=== PATIENT | female | born 1945 | race Caucasian/White ===

== ENCOUNTER 2020-07-05 08:26 | Outpatient (REF) | payer MEDICARE, SELFPAY ==
[2020-07-05 11:51] LABS: Alanine Aminotransferase 13 U/L (0-31); Anion Gap 13 (12-20); Aspartate Amino Transferase 14 U/L (5-31); Blood Urea Nitrogen 16 mg/dL (9-16); Calcium 9.3 mg/dL (8.4-10.2); Carbon Dioxide 28 mmol/L (22-29); Chloride 105 mmol/L (96-108); Cholesterol 223 mg/dL; Estimated Glomerular Filt Rate 59; Glucose Fasting 75 mg/dL (60-99); HDL Cholesterol 68 mg/dL; LDL Cholesterol Calculated 137 mg/dl; Potassium 4.5 mmol/l (3.3-5.1); Sodium 141 mmol/L (135-145); Triglycerides 90 mg/dL
[2020-07-05 11:58] LABS: Vitamin D 25-OH Total 38.6 ng/mL (>30)
== END 2020-07-05 08:27 | disposition home or self-care (01) ==
LOC: HO.HMGCLDS 08:26
PROVIDERS: PCP Internal Medicine; Visit Provider Internal Medicine
DX: E03.9 Hypothyroidism, unspecified (principal); E78.5 Hyperlipidemia, unspecified; F33.42 Major depressive disorder, recurrent, in full remission; M89.49 Other hypertrophic osteoarthropathy, multiple sites; M85.80 Other specified disorders of bone density and structure, unspecified site
CPT/HCPCS: 80048; 80061; 82306; 84439; 84443; 84450; 84460

== ENCOUNTER 2020-12-15 11:42 | Outpatient (REF) | payer MEDICARE, SELFPAY ==
--- NOTE | ~2020-12-15 | MM_ITS ---
EXAMINATION: MM SCREENING DIGITAL BREAST TOMOSYNTHESIS, BILATERAL CLINICAL INFORMATION: Screening. Asymptomatic. The lifetime risk of breast cancer based on the Tyrer-Cuzick Model is 2.3%. COMPARISON: Mammography: August 06, 2019 and studies dating back to November 30, 2011 TECHNIQUE: Digital breast tomosynthesis is performed in both the craniocaudal and mediolateral oblique views along with computer-aided detection (CAD). Synthesized 2D images are generated from the tomosynthesis. FINDINGS: The breasts are heterogeneously dense, which may obscure small masses (ACR BI-RADS breast composition Category c). There are no significant masses, abnormal calcifications, or other abnormalities. MM/MM tomosynthesis screening BI IMPRESSION: There are no significant changes from prior study. ASSESSMENT: BI-RADS 1: Negative RECOMMENDATION: Routine annual mammography screening. This patient's information was entered into a reminder system with a target due date for their next mammogram.
== END 2020-12-15 11:43 | disposition home or self-care (01) ==
LOC: HO.MAMMO 11:42
PROVIDERS: PCP Internal Medicine; Visit Provider Internal Medicine
DX: Z12.31 Encounter for screening mammogram for malignant neoplasm of breast (principal)
CPT/HCPCS: 77063; 77067

== ENCOUNTER 2021-04-01 09:05 | Outpatient (REF) | payer MEDICARE, SELFPAY ==
[2021-04-01 11:44] LABS: Alanine Aminotransferase 11 U/L (0-31); Anion Gap 10 (12-20); Aspartate Amino Transferase 16 U/L (5-31); Blood Urea Nitrogen 21 mg/dL (9-16); Calcium 9.3 mg/dL (8.4-10.2); Carbon Dioxide 28 mmol/L (22-29); Chloride 105 mmol/L (96-108); Cholesterol 210 mg/dL; Estimated Glomerular Filt Rate 59; Glucose Fasting 86 mg/dL (60-99); HDL Cholesterol 64 mg/dL; LDL Cholesterol Calculated 130 mg/dl; Potassium 4.3 mmol/L (3.3-5.1); Sodium 139 mmol/L (135-145); Triglycerides 84 mg/dL
== END 2021-04-01 09:06 | disposition home or self-care (01) ==
LOC: HO.HMGCLDS 09:05
PROVIDERS: PCP Internal Medicine; Visit Provider Internal Medicine
DX: M19.91 Primary osteoarthritis, unspecified site (principal); E03.9 Hypothyroidism, unspecified; M85.852 Other specified disorders of bone density and structure, left thigh; E78.5 Hyperlipidemia, unspecified; F32.9 Major depressive disorder, single episode, unspecified; I10 Essential (primary) hypertension
CPT/HCPCS: 36415; 80048; 80061; 82306; 84450; 84460

== ENCOUNTER 2021-04-20 14:20 | Outpatient (REF) | payer MEDICARE, SELFPAY ==
--- NOTE | ~2021-04-20 | MM_ITS ---
EXAMINATION: BONE DENSITOMETRY CLINICAL INDICATION: Encounter for screening for osteoporosis. COMPARISON: Previous BD dated 01/14/2019 and baseline BD dated 01/05/2015. TECHNIQUE: Using a Young[employer] DXA System (software version: 13.1) manufactured by [employer], dual-energy x-ray absorptiometry was performed of the lumbar spine and left hip. The images are of good technical quality. Summary results are attached. FINDINGS: AP SPINE L1-L2 (excluding L3 and L4): The data of L1-L4 has been changed to exclude the L3 and L4 vertebral bodies, because degenerative sclerosis at these levels may cause overestimation of lumbar spine density. Current: BMD 0.904 g/cm2, Z-score -0.7, T-score -2.2, osteopenia, 6.9% decrease from previous, 6.5% decrease from baseline (<5% change is not significant). Prior: BMD 0.971 g/cm2. Baseline: BMD 0.967 g/cm2. LEFT FEMUR, NECK: Current: BMD 0.717 g/cm2, Z-score -0.5, T-score -2.3, osteopenia. Prior: BMD 0.760 g/cm2. Baseline: BMD 0.788 g/cm2. LEFT FEMUR, TOTAL: Current: BMD 0.816 g/cm2, Z-score 0.1, T-score -1.5, osteopenia, 0.2% increase from previous, 2.0% decrease from baseline (<5% change is not significant). Prior: BMD 0.814 g/cm2. Baseline: BMD 0.833 g/cm2. IDENTIFIED RISK FACTORS: Osteopenia, height loss, menopause. HISTORY OF FRACTURE: None listed. MEDICATIONS: Calcium supplements or multivitamin, vitamin D, ERT/SERMS. MM/XR DEXA axial skeleton IMPRESSION: 1. DIAGNOSIS: Osteopenia based on the lowest T-score value of -2.3 in the femoral neck applying World Health Organization criteria. 2. 10-YEAR FRACTURE RISK PREDICTION, FRAX: Major osteoporotic fracture (clinical spine, forearm, hip or shoulder) 16.1%. Hip fracture 4.9%. 3. Treatment Recommendations: NOF guidelines recommend consideration for treatment in postmenopausal women and men age 50 and older presenting with the following: -A hip or vertebral (clinical or morphometric) fracture. -T-score less than or equal to -2.5 at the femoral neck or spine after appropriate evaluation to exclude secondary causes. -Low bone mass at the hip or spine and a 10-year fracture probability by FRAX of greater than or equal to 3% for hip fracture or greater than or equal to 20% for major osteoporotic fracture based on the [place] adapted WHO algorithm. 4. Other Recommendations: All treatment decisions require clinical judgment and consideration of individual patient factors, including patient preferences, comorbidities, previous drug use, risk factors not captured in the FRAX model (e.g. frailty, falls, vitamin D deficiency, increased bone turnover, interval significant decline in bone density) and possible under or overestimation of fracture risk by FRAX. Additional medical evaluation for secondary cause of low bone mineral density may be appropriate. FUTURE SCAN RECOMMENDATION: People with diagnosed cases of osteoporosis or at high risk for fracture should have regular bone mineral density tests. For patients eligible for Medicare, routine testing is allowed once every 2 years. The testing frequency can be increased to one year for patients who have rapidly progressing disease, those who are receiving or discontinuing medical therapy to restore bone mass, or have additional risk factors.
== END 2021-04-20 14:21 | disposition home or self-care (01) ==
LOC: HO.MAMMO 14:20
PROVIDERS: PCP Internal Medicine; Visit Provider Internal Medicine Rheumatology
DX: Z13.820 Encounter for screening for osteoporosis (principal); M85.80 Other specified disorders of bone density and structure, unspecified site; Z78.0 Asymptomatic menopausal state; Z79.899 Other long term (current) drug therapy
CPT/HCPCS: 77080

== ENCOUNTER → 2021-09-13 07:34 | Outpatient (BNVA) | payer MEDICARE, SELFPAY | PROVIDERS: PCP Internal Medicine; Referring Provider Internal Medicine; Visit Provider Nurse Practitioner | DX: K59.00 Constipation, unspecified (principal) | CPT/HCPCS: 99202 ==

== ENCOUNTER 2021-09-30 09:56 | Outpatient (REF) | payer MEDICARE, SELFPAY ==
[2021-09-30 12:10] LABS: Alanine Aminotransferase 16 U/L (0-31); Anion Gap 8 (12-20); Aspartate Amino Transferase 19 U/L (5-31); Blood Urea Nitrogen 18 mg/dL (9-16); Calcium 9.3 mg/dL (8.4-10.2); Carbon Dioxide 30 mmol/L (22-29); Chloride 105 mmol/L (96-108); Cholesterol 221 mg/dL; Estimated Glomerular Filt Rate > 60; Glucose Fasting 87 mg/dL (60-99); HDL Cholesterol 67 mg/dL; LDL Cholesterol Calculated 140 mg/dl; Sodium 139 mmol/L (135-145); Triglycerides 73 mg/dL
[2021-09-30 12:11] LABS: Free T4 (Free Thyroxine) 1.12 ng/dL (0.71-1.85); Thyroid Stimulating Hormone 1.38 uIU/mL (0.32-4.0); Vitamin D 25-OH Total 34.6 ng/mL (>30)
== END 2021-09-30 09:57 | disposition home or self-care (01) ==
LOC: HO.HMGCLDS 09:56
PROVIDERS: Visit Provider Internal Medicine
DX: I10 Essential (primary) hypertension (principal); E03.9 Hypothyroidism, unspecified; K59.00 Constipation, unspecified; E78.5 Hyperlipidemia, unspecified; M85.852 Other specified disorders of bone density and structure, left thigh; Z78.0 Asymptomatic menopausal state
CPT/HCPCS: 36415; 80048; 80061; 82306; 84439; 84443; 84450; 84460

== ENCOUNTER → 2021-12-15 13:22 | Outpatient (BNVA) | payer MEDICARE, SELFPAY | PROVIDERS: PCP Internal Medicine; Referring Provider Internal Medicine; Visit Provider Nurse Practitioner | DX: K58.1 Irritable bowel syndrome with constipation (principal) | CPT/HCPCS: 99212 ==

== ENCOUNTER 2022-01-05 14:07 | Outpatient (REF) | payer MEDICARE, SELFPAY ==
--- NOTE | ~2022-01-05 | MM_ITS ---
EXAMINATION: MM SCREENING DIGITAL BREAST TOMOSYNTHESIS, BILATERAL CLINICAL INFORMATION: Screening. Asymptomatic. The lifetime risk of breast cancer based on the Tyrer-Cuzick Model is 4%. COMPARISON: Mammography: December 15, 2020 and studies dating back to November 30, 2011 TECHNIQUE: Digital breast tomosynthesis is performed in both the craniocaudal and mediolateral oblique views along with computer-aided detection (CAD). Synthesized 2D images are generated from the tomosynthesis. FINDINGS: The breasts are heterogeneously dense, which may obscure small masses (ACR BI-RADS breast composition Category c). There are no significant masses, abnormal calcifications, or other abnormalities. MM/MM tomosynthesis screening BI IMPRESSION: There are no significant changes from prior study. ASSESSMENT: BI-RADS 1: Negative RECOMMENDATION: Routine annual mammography screening. This patient's information was entered into a reminder system with a target due date for their next mammogram.
== END 2022-01-05 14:08 | disposition home or self-care (01) ==
LOC: HO.MAMMO 14:07
PROVIDERS: Visit Provider Internal Medicine
DX: Z12.31 Encounter for screening mammogram for malignant neoplasm of breast (principal)
CPT/HCPCS: 77063; 77067

== ENCOUNTER 2022-01-18 07:53 | Outpatient (REF) | payer MEDICARE, SELFPAY ==
[2022-01-18 11:58] LABS: Alanine Aminotransferase 18 U/L (0-31); Aspartate Amino Transferase 16 U/L (5-31); Cholesterol 222 mg/dL; HDL Cholesterol 66 mg/dL; LDL Cholesterol Calculated 145 mg/dl; Triglycerides 59 mg/dL
[2022-01-18 12:06] LABS: Free T4 (Free Thyroxine) 1.03 ng/dL (0.71-1.85); Thyroid Stimulating Hormone 1.79 uIU/mL (0.32-4.0); Vitamin D 25-OH Total 33.1 ng/mL (>30)
== END 2022-01-18 07:54 | disposition home or self-care (01) ==
LOC: HO.HMGCLDS 07:53
PROVIDERS: Visit Provider Internal Medicine
DX: E03.9 Hypothyroidism, unspecified (principal); E78.5 Hyperlipidemia, unspecified; F32.9 Major depressive disorder, single episode, unspecified; K58.1 Irritable bowel syndrome with constipation; M85.852 Other specified disorders of bone density and structure, left thigh; Z78.0 Asymptomatic menopausal state
CPT/HCPCS: 36415; 80061; 82306; 84439; 84443; 84450; 84460

== ENCOUNTER → 2022-06-13 14:07 | Outpatient (BNVA) | payer MEDICARE, SELFPAY | PROVIDERS: PCP Internal Medicine; Visit Provider Nurse Practitioner | DX: K58.1 Irritable bowel syndrome with constipation (principal); Z98.890 Other specified postprocedural states | CPT/HCPCS: 99212 ==

== ENCOUNTER 2022-07-20 08:23 | Outpatient (REF) | payer MEDICARE, SELFPAY ==
[2022-07-20 11:58] LABS: Alanine Aminotransferase 13 U/L (0-31); Aspartate Amino Transferase 16 U/L (5-31); Cholesterol 229 mg/dL; Free T4 (Free Thyroxine) 1.03 ng/dL (0.71-1.85); HDL Cholesterol 68 mg/dL; LDL Cholesterol Calculated 148 mg/dl; Thyroid Stimulating Hormone 1.64 uIU/mL (0.32-4.0); Triglycerides 68 mg/dL; Vitamin D 25-OH Total 33.5 ng/mL (>30)
== END 2022-07-20 08:24 | disposition home or self-care (01) ==
LOC: HO.HMGCLDS 08:23
PROVIDERS: PCP Internal Medicine; Visit Provider Internal Medicine
DX: E03.9 Hypothyroidism, unspecified (principal); E78.5 Hyperlipidemia, unspecified; F32.9 Major depressive disorder, single episode, unspecified; M19.91 Primary osteoarthritis, unspecified site; M85.852 Other specified disorders of bone density and structure, left thigh; Z78.0 Asymptomatic menopausal state
CPT/HCPCS: 36415; 80061; 82306; 84439; 84443; 84450; 84460

== ENCOUNTER → 2022-10-20 11:11 | Outpatient (BNVA) | payer MEDICARE, SELFPAY | PROVIDERS: PCP Internal Medicine; Visit Provider Student in an Organized Health Care Education/Training Program | DX: M19.041 Primary osteoarthritis, right hand (principal); M19.042 Primary osteoarthritis, left hand; M85.852 Other specified disorders of bone density and structure, left thigh | CPT/HCPCS: 99202 ==

== ENCOUNTER 2022-10-31 11:57 | Outpatient (REF) | payer MEDICARE, SELFPAY ==
--- NOTE | ~2022-10-31 | US_ITS ---
EXAMINATION: US SCREENING ULTRASOUND BREAST, BILATERAL CLINICAL INFORMATION: Dense breasts on mammography. Screening ultrasound. Tyrer-Cuzick Score 17%. COMPARISON: Mammography 01/05/2022, bilateral breast MR 07/05/2016. TECHNIQUE: Ultrasound is performed using grayscale imaging and color Doppler. Imaging is performed to include the four quadrants and retroareolar region. Both breasts are imaged. FINDINGS: Right breast: There is no suspicious finding by ultrasound. There is no cystic or solid mass or focal architectural abnormality. Left breast: There is no suspicious finding by ultrasound. There is no cystic or solid mass or focal architectural abnormality. US/US breast LT complete IMPRESSION: No suspicious findings on screening breast ultrasound. ASSESSMENT: BI-RADS 1: Negative RECOMMENDATION: Routine annual mammography screening. This patient's information was entered into a reminder system with a target due date for their next mammogram.
--- NOTE | ~2022-10-31 | US_ITS ---
EXAMINATION: US SCREENING ULTRASOUND BREAST, BILATERAL CLINICAL INFORMATION: Dense breasts on mammography. Screening ultrasound. Tyrer-Cuzick Score 17%. COMPARISON: Mammography 01/05/2022, bilateral breast MR 07/05/2016. TECHNIQUE: Ultrasound is performed using grayscale imaging and color Doppler. Imaging is performed to include the four quadrants and retroareolar region. Both breasts are imaged. FINDINGS: Right breast: There is no suspicious finding by ultrasound. There is no cystic or solid mass or focal architectural abnormality. Left breast: There is no suspicious finding by ultrasound. There is no cystic or solid mass or focal architectural abnormality. US/US breast RT complete IMPRESSION: No suspicious findings on screening breast ultrasound. ASSESSMENT: BI-RADS 1: Negative RECOMMENDATION: Routine annual mammography screening. This patient's information was entered into a reminder system with a target due date for their next mammogram.
== END 2022-10-31 11:58 | disposition home or self-care (01) ==
LOC: HO.MAMMO 11:57
PROVIDERS: PCP Internal Medicine; Visit Provider Internal Medicine
DX: R92.2 Inconclusive mammogram (principal); Z80.3 Family history of malignant neoplasm of breast
CPT/HCPCS: 76641

== ENCOUNTER → 2022-12-12 13:42 | Outpatient (BNVA) | payer MEDICARE, SELFPAY | PROVIDERS: PCP Internal Medicine; Visit Provider Nurse Practitioner | DX: Z01.818 Encounter for other preprocedural examination (principal); K58.1 Irritable bowel syndrome with constipation; D12.6 Benign neoplasm of colon, unspecified; Z80.0 Family history of malignant neoplasm of digestive organs | CPT/HCPCS: 99212 ==

== ENCOUNTER 2023-01-12 08:15 | Outpatient (REF) | payer MEDICARE, SELFPAY ==
[2023-01-12 12:20] LABS: Alanine Aminotransferase 22 U/L (0-31); Aspartate Amino Transferase 22 U/L (5-31); Cholesterol 226 mg/dL; HDL Cholesterol 76 mg/dL; LDL Cholesterol Calculated 136 mg/dl; Triglycerides 73 mg/dL
[2023-01-12 12:40] LABS: Free T4 (Free Thyroxine) 0.93 ng/dL (0.71-1.85); Thyroid Stimulating Hormone 1.32 uIU/mL (0.32-4.0); Vitamin D 25-OH Total 54.5 ng/mL (>30)
== END 2023-01-12 08:16 | disposition home or self-care (01) ==
LOC: HO.HMGCLDS 08:15
PROVIDERS: PCP Internal Medicine; Visit Provider Internal Medicine
DX: E03.9 Hypothyroidism, unspecified (principal); E78.5 Hyperlipidemia, unspecified; M85.852 Other specified disorders of bone density and structure, left thigh; F32.9 Major depressive disorder, single episode, unspecified
CPT/HCPCS: 36415; 80061; 82306; 84439; 84443; 84450; 84460

== ENCOUNTER 2023-02-09 12:35 | Outpatient (REF) | payer MEDICARE, SELFPAY ==
--- NOTE | ~2023-02-09 | MM_ITS ---
EXAMINATION: MM SCREENING DIGITAL BREAST TOMOSYNTHESIS, BILATERAL CLINICAL INFORMATION: Screening. Asymptomatic. The lifetime risk of breast cancer based on the Tyrer-Cuzick Model is 3%. COMPARISON: Mammography: This study is compared with prior exams dating back to 2019. TECHNIQUE: Digital breast tomosynthesis is performed in both the craniocaudal and mediolateral oblique views along with computer-aided detection (CAD). Synthesized 2D images are generated from the tomosynthesis. FINDINGS: There are scattered areas of fibroglandular density (ACR BI-RADS breast composition Category b). There are no significant masses, abnormal calcifications, or other abnormalities. MM/MM tomosynthesis screening BI IMPRESSION: No mammographic evidence of malignancy. ASSESSMENT: BI-RADS BI-RADS 1 - Negative RECOMMENDATION: Routine annual mammography screening. 1 year F/U This examination should not preclude the clinical evaluation of a suspicious palpable abnormality. This patient's information was entered into a reminder system with a target due date for their next mammogram.
== END 2023-02-09 12:36 | disposition home or self-care (01) ==
LOC: HO.MAMMO 12:35
PROVIDERS: PCP Internal Medicine; Visit Provider Internal Medicine
DX: Z12.31 Encounter for screening mammogram for malignant neoplasm of breast (principal)
CPT/HCPCS: 77063; 77067

== ENCOUNTER → 2023-02-09 12:45 | Outpatient (BNV) | payer MEDICARE, SELFPAY | PROVIDERS: PCP Internal Medicine; Visit Provider Radiology Diagnostic Radiology | DX: Z12.31 Encounter for screening mammogram for malignant neoplasm of breast (principal) | CPT/HCPCS: 77063; 77067 ==

== ENCOUNTER 2023-02-26 11:00 | Outpatient (RCR) | payer MEDICARE, SELFPAY ==
--- NOTE | 2023-02-09 08:39 | MHC.PT.EP ---
[facility] [place] Office [place] Office [place] Office [address] Meche Sharp [address] [phone] F: [phone] F: [phone] F: [phone] F: [phone] Physical Therapy Plan of Care Date of Evaluation: Date of Surgery: n/a Diagnosis: pain in B knee Assessment: Patient is a 78 year old female presenting to PT with complaints of pain in her B knees. Pt reports onset of pain began years ago with worsening recently due to insidious onset. She presents today with impairments in pain, knee strength, hip strength. Pt's current occupation is retired, with baseline physical activities including ambulating, ADLs, stair negotiation. 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 Clinical presentation today is most consistent with signs and sx associated with B knee pain and pt will benefit from skilled PT 2 week x 4 weeks to address the following problems and impairments noted upon evaluation: pain, knee strength, hip strength. These problems limit the patient with the following functional activities: ambulating, stair negotiation, ADLS. The prescribed treatment plan of care is medically necessary. Co-morbidities of osteopenia, IBS were identified and taken into considerations of plan of care. Pt was educated on HEP, role of PT, prognosis, POC. Frequency and Duration: The patient will be seen 2 x week x 4 weeks Short Term Goals: Pt will demonstrate improved B knee MMT strength to 5/5 in 2 weeks. Pt will demonstrate improved hip MMT strength by 1/3 grade in 2 weeks for improved lumbopelvic stability. Penitentiary Goals: Pt will demonstrate improved LEFI score by 9 points in 4 weeks for improved functional mobility. Pt will demonstrate reports of improved ability to negotiate stairs with min to no pain/difficulty in 4 weeks for improved access to the community. Pt will demonstrate ability to ambulate with min to no pain to improved tolerance to ADLs and other household duties in 4 weeks. Treatment Plan: Modalities to reduce pain, spasms and effusion. Manual therapy to restore motion and function. Therapeutic exercise to improve strength and flexibility. Neuromuscular re-education for posture and balance. Therapeutic activities to return to functional activities of daily living. Electronically signed by: Madina Godoy, PT, DPT, ATC Please sign and return to therapist. Thank you for your referral.
--- NOTE | 2023-04-09 08:55 | MHC.PT.DC ---
[facility] [place] Office [place] Office [place] Office [address] Meche Sharp [address] [phone] F: [phone] F: [phone] F: [phone] F: [phone] Physical Therapy Discharge Report Diagnosis: pain in B knee Date of Surgery: n/a Date of Evaluation: 02/09/23 Date of Discharge: 04/09/23 Treatments to Date: 5 Cancellations to Date: 4 No Shows to Date: 0 Discharge Status: Discharge Summary: Pt has been placed on 30 day hold. Has not called to be scheduled so will be d/c at this time. Pt to follow up with MD if needed. Electronically signed by: Madina Godoy PT, DPT, ATC Please sign and return to therapist. Thank you for your referral.
== END 2023-04-09 08:56 | disposition home or self-care (01) ==
LOC: HO.PTCHIC 11:00
PROVIDERS: PCP Internal Medicine; Visit Provider Internal Medicine
DX: M25.562 Pain in left knee (principal); M25.561 Pain in right knee; M19.91 Primary osteoarthritis, unspecified site
CPT/HCPCS: 97110; 97161

== ENCOUNTER 2023-03-15 10:19 | Outpatient (REF) | payer MEDICARE, SELFPAY | END 2023-03-15 10:20 | disposition home or self-care (01) | LOC: HO.SH 10:19 | PROVIDERS: Visit Provider Internal Medicine | DX: Z01.118 Encounter for examination of ears and hearing with other abnormal findings (principal); H90.3 Sensorineural hearing loss, bilateral | CPT/HCPCS: 92557; 92567 ==

== ENCOUNTER 2023-04-05 09:06 | Day surgery (SDC) | payer MEDICARE, SELFPAY ==
[2023-04-03 14:59] VITALS: BMI 32.3
--- NOTE | 2023-04-04 10:39 | P.CONAN_ITS ---
Documented by User: Jennifer Wilkinson NP 04/04/23 10:39 HPI - Anesthesia Eval Consult details Narrative: 78yo F for Colonoscopy PMFSH Active Problems Active Problems: All Active Problems (Updated 01/15/23 @ 11:26 by Yvette Shaffer MD) Osteoarthritis of hands, bilateral (Acute) Pre-op examination (Acute) Tubular adenoma of colon (Acute) Family history of colon cancer (Acute) Bilateral knee pain (Acute) Hearing deficit (Acute) Dense breast tissue on mammogram (Acute) Left medial knee pain (Acute) Irritable bowel syndrome with constipation (Acute) Depression (Acute) Dyslipidemia (Acute) Osteopenia of left femoral neck (Acute) Acquired hypothyroidism (Acute) Primary osteoarthritis (Acute) Past Medical History Medical History Bilateral knee pain Hearing deficit Dense breast tissue on mammogram Left medial knee pain Irritable bowel syndrome with constipation Depression Dyslipidemia Osteopenia of left femoral neck Acquired hypothyroidism Primary osteoarthritis Family History Family History Father Dysrhythmia CVD (cardiovascular disease) Mother HTN (hypertension) Breast cancer Bladder cancer Mental health disorder Maternal Grandfather Stroke Maternal Grandmother Stroke Paternal Grandfather No problems noted. Paternal Grandmother Liver cancer Surgical History Surgical History H/O colonoscopy History of arthrodesis History of cataract surgery History of tubal ligation History of appendectomy Social History Social History Housing: House Are you a primary manager home healthcare to a significant other at home: No Do you presently have visiting nurse or other home services: No Patient Tobacco Use Status: Former Tobacco user Years Smoked: 1 yr e-Cigarette/Vaping Use: Never Used Second Hand Smoke Exposure: No Have you been hit, kicked, punched, or otherwise hurt by someone within the past year? If so, by whom?: No Are you DNR?: No Advance Directives: No Advance Directives Information Provided: Yes Recently lost weight without trying: No Eating poorly because of decreased appetite: No Nutrition Risks: No Nutritional Risk Patient : No service: No Current occupational status: retired Cognitive needs: No Hearing needs: No Vision needs: Yes Meds Allergies Allergy/AdvReac Type Severity Reaction Status Date / Time No Known Allergies Allergy Verified 01/16/23 02:07 Home Medications Medication Instructions Recorded Confirmed Last Taken Type cholecalciferol (vitamin D3) 50 50 mcg PO DAILY 09/13/21 04/03/23 Unknown History mcg (2,000 unit) capsule glucosamine HCl 1,500 mg tablet 1,500 mg PO DAILY 09/13/21 10/30/21 Unknown History glucosamin plus msm 500 mg PO DAILY 12/12/22 04/03/23 Unknown History omega-3 fatty acids-fish oil [Fish 1 cap PO DAILY 12/12/22 04/03/23 Unknown History Oil Extra Strength] Exam Exam Date and Time: April 04, 2023 1039 Height,Weight and Vital Signs: Height 5 ft 1 in Weight 77.564 kg Assessment and Plan Assessment Anesthesia Assessment: Chart Reviewed Documented by User: Sonia Martinez MD 04/05/23 13:26 [facility] [place] Past Medical History Medical History Bilateral knee pain Hearing deficit Dense breast tissue on mammogram Left medial knee pain Irritable bowel syndrome with constipation Depression Dyslipidemia Osteopenia of left femoral neck Acquired hypothyroidism Primary osteoarthritis Family History Family History Father Dysrhythmia CVD (cardiovascular disease) Mother HTN (hypertension) Breast cancer Bladder cancer Mental health disorder Maternal Grandfather Stroke Maternal Grandmother Stroke Paternal Grandfather No problems noted. Paternal Grandmother Liver cancer Family history of problems with anesthesia: No Surgical History Surgical History H/O colonoscopy History of arthrodesis History of cataract surgery History of tubal ligation History of appendectomy History of Problems with Anesthesia: No Social History Social History Housing: House Are you a primary manager home healthcare to a significant other at home: No Do you presently have visiting nurse or other home services: No Patient Tobacco Use Status: Former Tobacco user Years Smoked: 1 yr e-Cigarette/Vaping Use: Never Used Second Hand Smoke Exposure: No Have you been hit, kicked, punched, or otherwise hurt by someone within the past year? If so, by whom?: No Are you DNR?: No Advance Directives: No Advance Directives Information Provided: Yes Recently lost weight without trying: No Eating poorly because of decreased appetite: No Nutrition Risks: No Nutritional Risk Patient : No service: No Current occupational status: retired Cognitive needs: No Hearing needs: No Vision needs: Yes Meds Allergies Allergy/AdvReac Type Severity Reaction Status Date / Time No Known Allergies Allergy Verified 01/16/23 02:07 Home Medications Medication Instructions Recorded Confirmed Last Taken Type cholecalciferol (vitamin D3) 50 50 mcg PO DAILY 09/13/21 04/03/23 Unknown History mcg (2,000 unit) capsule glucosamine HCl 1,500 mg tablet 1,500 mg PO DAILY 09/13/21 10/30/21 Unknown History glucosamin plus msm 500 mg PO DAILY 12/12/22 04/03/23 Unknown History omega-3 fatty acids-fish oil [Fish 1 cap PO DAILY 12/12/22 04/03/23 Unknown History Oil Extra Strength] Exam Airway Mallampati Class: II TM Dist: >3cm Neck ROM: Full Heart: rrr Lungs: cta Assessment and Plan Assessment Anesthesia Assessment: Anesthesia Plan Discussed Final Anesthetic Review Family History of Problems with Anesthesia: No History of Problems with Anesthesia: No NPO: Yes ASA Class: II Final Preanesthetic Review: No Changes in Pt Med Stat, Meds/Allgs Chart Reviewed, Consent Obtained/Reviewed and Anes Risks/Benef Reviewed Patient Risk: Low Procedure Risk: Low Anesthetic Plan Anesthetic Plan: MAC: Disposition: Standard PACU
--- NOTE | 2023-04-05 12:20 | P.HPSUR_ITS ---
Pre-Procedural Eval Section A Date of Service: 04/05/23 The patient is an INPATIENT: No The History & Physical has been completed within 30 days and I have reviewed it.: No Section B Chief Complaint: IBS,benign neoplasm,hx malignant neoplasm Relevant Family History (Specify if Yes): Yes Relevant Social History: Tobacco Use (former smoker) Present Medications: see Short Stay Collaborative assessment Medical History: Significant History (Acquired hypothyroidism Dense breast tissue on mammogram Depression Dyslipidemia Irritable bowel syndrome with consti pation Left medial knee pain Osteopenia of left femoral neck Primary osteoarthritis) History of Previous Operations: Relevant previous surgery/procedure and date(s) (History of appendectomy History of arthrodesis History of cataract surgery History of tubal ligation) Allergies: Allergies Allergy/AdvReac Type Severity Reaction Status Date / Time No Known Allergies Allergy Verified 01/16/23 02:07 Review of Systems Sugical H&P ROS: Negative: Constitution, Cardiovascular, Respiratory and Gastrointestinal Exam Surgical H&P Exam: Normal: Heart, Normal: Lungs, Normal: Extremities and Normal: Abdomen Plan Diagnosis/Plan: Unchanged I have reviewed the history and physical and performed a pertinent physical examination on my patient. No changes have occurred unless specified. Time Spent With Patient Time: Total time managing care of this patient today ____ minutes.
[2023-04-05 12:39] VITALS: BP 158/80; PULSE 76; RESP 18; TEMP 36.1; O2SAT 98
[2023-04-05] MEDS: Lactated Ringers 1,000 ML 100 ML IVCONT (12:48)
--- NOTE | 2023-04-05 13:15 | W.PM.OPN ---
Operative Note Operative Note Date of Service: 04/05/23 Narrative: COLONOSCOPY TILL CECUM WITH BIOPSIES, SNARE POLYPECTOMY AND HEMOCLIP PLACEMENT Pre-op diagnosis: Colon cancer screen, history of colon polyps, family history of colon cancer Post-op diagnosis:? Colon polyps, diverticulosis, hemorrhoids, melanosis coli Endoscopist:? Crystal Cartwright MD Anesthesia:?MAC Consent: Indications for the procedure and potential complications of bleeding, perforation, reaction to medications and missed diagnosis were discussed with the patient and informed consent was obtained. Instrument: Olympus PCF H 190 L variable stiffness pediatric colonoscope Monitoring: Vital signs and clinical assessment, intermittent blood pressure monitoring, continuous EKG monitoring, Pulse oximetry and Carbon Dioxide monitoring were done throughout the procedure. Please see anesthesia flowsheet. Colon withdrawl time was 15 minutes. Procedure: The patient was placed in the left lateral decubitis position and pre-procedure medications were administered. After a digital rectal examination of the ano-rectum, the video colonoscope was inserted into the rectum and advanced through the colon to the cecum. The colonoscope was slowly withdrawn in a retrograde panoramic fashion and the colon mucosa was carefully examined including a retroflexed view of the rectum. Findings and interventions are described below. Procedure Difficulty: Colon was long and tortuous and there was recurrent loop formation. LLQ pressure was applied to intubate the ascending colon Findings: Terminal Ileum: Not evaluated Cecum: A 2-3 mm sessile polyp removed with a cold bx. A 7-8 mm sessile polyp removed with a cold snare Ascending Colon: A 2 cms sessile polyp in proximal AC (adjacent to the ICV) overlying a fold. Polyp was removed with a hot snare. Polypectomy site was closed with 1 hemoclip. Mild melanosis coli involving the entire colon Transverse Colon: Mild melanosis coli involving the entire colon Descending Colon: Mild melanosis coli involving the entire colon Moderate diverticulosis Sigmoid Colon: Moderate diverticulosis Rectum: Normal Ano-rectum: Moderate internal hemorrhoids Colon preparation: Good after some irrigation Impression and Post Procedure Diagnosis: Colonoscopy Findings: Two small and one medium sized polyps removed Moderate diverticulosis seen in the left colon Moderate hemorrhoids on retroflexed exam. Mild melanosis coli involving the entire colon Plan: Await pathology results Patient has an appointment on 04/26/23 in the GI Clinic with Iman Claire NP. Repeat Colonoscopy interval based on path results - in 3 years if polyps are adenomatous and pt remains in stable health. Above findings were reviewed with the patient and Melanosis Coli, colon polyps and diverticulosis handouts were given in the discharge area
[2023-04-05 14:10] VITALS: BP 131/66; PULSE 70; RESP 16; TEMP 36.8; O2SAT 96
[2023-04-05 14:26] VITALS: BP 151/81; PULSE 70; RESP 16; TEMP 36.1; O2SAT 98
== END 2023-04-05 14:59 | disposition home or self-care (01) ==
PROVIDERS: PCP Internal Medicine; Visit Provider Internal Medicine Gastroenterology
PROC: 0DJD8ZZ Inspection of Lower Intestinal Tract, Via Natural or Artificial Opening Endoscopic (ICD-10-PCS; CPT 45378; principal; 2023-04-05 12:40)
DX: Z12.11 Encounter for screening for malignant neoplasm of colon (principal); D12.0 Benign neoplasm of cecum; K63.89 Other specified diseases of intestine; K56.2 Volvulus; K57.81 Diverticulitis of intestine, part unspecified, with perforation and abscess with bleeding; K64.8 Other hemorrhoids; Z86.010 Personal history of colon polyps; Z80.0 Family history of malignant neoplasm of digestive organs; E78.5 Hyperlipidemia, unspecified; Z87.891 Personal history of nicotine dependence; Z98.51 Tubal ligation status; Z79.899 Other long term (current) drug therapy
CPT/HCPCS: 45380; 45385; 88305

== ENCOUNTER → 2023-04-05 09:06 | Outpatient (BNV) | payer MEDICARE, SELFPAY | PROVIDERS: PCP Internal Medicine; Visit Provider Internal Medicine Gastroenterology | DX: Z12.11 Encounter for screening for malignant neoplasm of colon (principal); Z86.010 Personal history of colon polyps; D12.0 Benign neoplasm of cecum; D12.2 Benign neoplasm of ascending colon; K57.90 Diverticulosis of intestine, part unspecified, without perforation or abscess without bleeding; K64.9 Unspecified hemorrhoids; Z80.0 Family history of malignant neoplasm of digestive organs | CPT/HCPCS: 45380; 45385 ==

== ENCOUNTER 2023-04-24 14:32 | Outpatient (REF) | payer MEDICARE, SELFPAY ==
--- NOTE | ~2023-04-24 | MM_ITS ---
EXAMINATION: BONE DENSITOMETRY CLINICAL INDICATION: Other specified disorders of bone density and structure. COMPARISON: Previous BD dated 04/20/2021 and baseline BD dated 01/05/2015. TECHNIQUE: Using a [employer] DXA System (software version: 13.1) manufactured by [employer], dual-energy x-ray absorptiometry was performed of the lumbar spine and left hip. The images are of good technical quality. Summary results are attached. FINDINGS: LEFT FEMUR, NECK: Current: BMD 0.668 g/cm2, Z-score -0.8, T-score -2.7, osteoporosis. Prior: BMD 0.717 g/cm2. Baseline: BMD 0.788 g/cm2. LEFT FEMUR, TOTAL: Current: BMD 0.705 g/cm2, Z-score -0.7, T-score -2.4, osteopenia, 13.6% decrease from previous, 15.4% decrease from baseline (<5% change is not significant). Prior: BMD 0.816 g/cm2. Baseline: BMD 0.833 g/cm2. AP SPINE L1-L3 (excluding L4): The data of L1-L4 has been changed to exclude the L4 vertebral body, because significant degenerative change at this level may cause overestimation of lumbar spine density. Current: BMD 0.983 g/cm2, Z-score -0.1, T-score -1.6, osteopenia, 0.7% increase from previous, 6.5% decrease from baseline (<5% change is not significant). Prior: BMD 0.976 g/cm2. Baseline: BMD 1.051 g/cm2. IDENTIFIED RISK FACTORS: Menopause, height loss. HISTORY OF FRACTURE: None listed. MEDICATIONS: Calcium supplements or multivitamin, vitamin D, ERT/SERMS. MM/XR DEXA axial skeleton IMPRESSION: 1. DIAGNOSIS: Osteoporosis based on the lowest T-score value of -2.7 in the femoral neck applying World Health Organization criteria. 2. 10-YEAR FRACTURE RISK PREDICTION, FRAX: According to the guidelines, FRAX calculation should only be performed on patients in the osteopenia bone density category. Therefore, FRAX was not performed on this patient. 3. Treatment Recommendations: NOF guidelines recommend consideration for treatment in postmenopausal women and men age 50 and older presenting with the following: -A hip or vertebral (clinical or morphometric) fracture. -T-score less than or equal to -2.5 at the femoral neck or spine after appropriate evaluation to exclude secondary causes. -Low bone mass at the hip or spine and a 10-year fracture probability by FRAX of greater than or equal to 3% for hip fracture or greater than or equal to 20% for major osteoporotic fracture based on the [place] adapted WHO algorithm. 4. Other Recommendations: All treatment decisions require clinical judgment and consideration of individual patient factors, including patient preferences, comorbidities, previous drug use, risk factors not captured in the FRAX model (e.g. frailty, falls, vitamin D deficiency, increased bone turnover, interval significant decline in bone density) and possible under or overestimation of fracture risk by FRAX. Additional medical evaluation for secondary cause of low bone mineral density may be appropriate. FUTURE SCAN RECOMMENDATION: People with diagnosed cases of osteoporosis or at high risk for fracture should have regular bone mineral density tests. For patients eligible for Medicare, routine testing is allowed once every 2 years. The testing frequency can be increased to one year for patients who have rapidly progressing disease, those who are receiving or discontinuing medical therapy to restore bone mass, or have additional risk factors.
== END 2023-04-24 14:33 | disposition home or self-care (01) ==
LOC: HO.MAMMO 14:32
PROVIDERS: PCP Internal Medicine; Visit Provider Student in an Organized Health Care Education/Training Program
DX: Z13.820 Encounter for screening for osteoporosis (principal); M85.852 Other specified disorders of bone density and structure, left thigh; Z78.0 Asymptomatic menopausal state
CPT/HCPCS: 77080

== ENCOUNTER 2023-04-26 09:51 | Outpatient (AMB) | payer MEDICARE, SELFPAY ==
--- NOTE | 2023-04-26 10:03 | A.OFFVIS_ITS ---
Intake Vital Signs 04/26/23 10:24 Height 5 ft 1 in Weight 168 lb 6.931 oz BMI 31.8 BP 133/78 Blood Pressure Location Rt brachial Position Sitting Pulse 68 Intake Visit Reasons: S/p karl Serrano Intake Note: Patient presents to in office visit today in follow up of colonoscopy. Patient underwent colonoscopy with Dr. Serrano on 04/05/23. CC: Patient report she is doing well and denies having any GI symptoms today. 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 She decided she would rather have a colonoscopy that do a Cologuard. She is agreeable to going for basic labs for anesthesia and sedation. There are no prior problems with anesthesia or sedation. She denies any cardiac or respiratory problems. NO ID problems. She has a hx of TA's prior to her [address] Mohan and FHX of CRC in mother-she prefers a lower volume prep as she has had trouble in the past drinking large volume prep such as GoLYTELY. Suprep has been sent. ROV 6 mos. (2) Tubular adenoma of colon: Code(s): D12.6 - Benign neoplasm of colon, unspecified (3) Irritable bowel syndrome with consti pation: Code(s): K58.1 - Irritable bowel syndrome with constipation (4) Family history of colon cancer: Code(s): Z80.0 - Family history of malignant neoplasm of digestive organs Orders: Orders Complete Blood Cou nt Auto Diff 12/12/22 D12.6 - Benign lyndsey plasm of colon, un specified, Z80.0 - Family history of malignant neoplas m of digestive org ans Comprehensive Met. Panel 12/12/22 D12.6 - Benign lyndsey plasm of colon, un specified, Z80.0 - Family history of malignant neoplas m of digestive org ans Medications: New sodium,potassium,m ag sulfates 17.5-3 .13-1.6 gram (Supr ep Bowel Prep Kit) 480 mL orally; 3 54 mL 0RF D12.6 - Benign lyndsey plasm of colon, un specified, Z01.818 - Encounter for o ther preprocedural examination, Z80. 0 - Family history of malignant neop lasm of digestive organs COLONOSCOPY 04/05/23 Findings: Terminal Ileum: Not evaluated Cecum: A 2-3 mm sessile polyp removed with a cold bx. A 7-8 mm sessile polyp removed with a cold snare Ascending Colon: A 2 cms sessile polyp in proximal AC (adjacent to the ICV) overlying a fold. Polyp was removed with a hot snare. Polypectomy site was closed with 1 hemoclip. Mild melanosis coli involving the entire colon Transverse Colon: Mild melanosis coli involving the entire colon Descending Colon: Mild melanosis coli involving the entire colon Moderate diverticulosis Sigmoid Colon: Moderate diverticulosis Rectum: Normal Ano-rectum: Moderate internal hemorrhoids Colon preparation: Good after some irrigation Impression and Post Procedure Diagnosis: Colonoscopy Findings: Two small and one medium sized polyps removed Moderate diverticulosis seen in the left colon Moderate hemorrhoids on retroflexed exam. Mild melanosis coli involving the entire colon Plan: Await pathology results Patient has an appointment on 04/26/23 in the GI Clinic with Iman Claire NP. Repeat Colonoscopy interval based on path results - in 3 years if polyps are adenomatous and pt remains in stable health. Above findings were reviewed with the patient and Melanosis Coli, colon polyps and diverticulosis handouts were given in the discharge area BIOPSY Received: 04/05/23 Diagnosis A. Colon, cecal polyps: Polypoid colonic mucosa (2 pieces), one with prominent lymphoid aggregates; negative for adenomatous dysplasia. B. Colon, ascending, polyp: Tubular adenoma; negative for high-grade dysplasia and carcinoma TODAY'S VISIT The procedure needs to be repeated in 3 years. The procedure was well tolerated. The results were explained and the patient is agreeable to the follow-up interval as stated. The bowel pattern has returned to normal. Education was provided to tell any 1st degree relatives about their findings to be sure that they are screened by age 45. Educated that they will be put on a recall list when it is time for their repeat scope but should they move out of state or away from the hospital they will need to remember along with their primary to repeat the procedure in a timely fashion to avoid any adverse complications. [facility]OV [facility]N [facility] Medical History (Updated 04/26/23 @ 15:40 by MANUELA [place]) Bilateral knee pain Hearing deficit Dense breast tissue on mammogram Left medial knee pain Irritable bowel syndrome with constipation Depression Dyslipidemia Osteopenia of left femoral neck Acquired hypothyroidism Primary osteoarthritis Surgical History (Updated 04/26/23 @ 10:28 by Susan Charles [facility]) H/O colonoscopy History of arthrodesis History of cataract surgery History of tubal ligation History of appendectomy Family History Father Dysrhythmia CVD (cardiovascular disease) Mother HTN (hypertension) Breast cancer Bladder cancer Mental health disorder Maternal Grandfather Stroke Maternal Grandmother Stroke Paternal Grandfather No problems noted. Paternal Grandmother Liver cancer Social History Housing: House Are you a primary senior care specialist to a significant other at home: No Do you presently have visiting nurse or other home services: No Patient Tobacco Use Status: Former Tobacco user Years Smoked: 1 yr e-Cigarette/Vaping Use: Never Used Second Hand Smoke Exposure: No service: No Current occupational status: retired Cognitive needs: No Hearing needs: No Vision needs: Yes Review of Systems Const Denies fatigue, Denies fever(s), Denies night sweats, Denies poor appetite and Denies weight loss ENT Reports Normal hearing present, Denies dental pain, Denies dysphagia, Denies hearing loss, Denies mouth pain, Denies odynophagia, Denies throat swelling, Denies tongue swelling and Reports other (Dentition adequate) Card Reports no additional complaints Resp Reports no additional complaints GI Denies abdominal pain, Denies melena, Denies bloating, Denies hematochezia, Reports constipation, Denies GI cramping, Denies dysphagia, Denies excessive flatus, Denies early satiety, Denies heartburn, Denies diarrhea, Denies nausea, Denies odynophagia, Denies vomiting and Denies hematemesis Skin/Breast Denies pruritus, Denies lesions, Denies rash and Denies jaundice Neuro Reports Normal hearing present and Denies Abnormal speech present Endo Denies fatigue Aller/Immun Denies throat swelling and Denies tongue swelling Physical Exam Vital Signs: Last Vital Signs Pulse 68 04/26/23 10:24 BP 133/78 04/26/23 10:24 BMI result Body Mass Index 31.8 Const General: cooperative, no acute distress, well developed and well groomed Nutritional Appearance: well nourished and obese Orientation/consciousness: oriented to person, oriented to place and oriented to time Limitations: No language barrier HEENT Head: Yes normocephalic and Yes atraumatic Eyes General: appearance normal, both eyes and all related structures Pupils: Equal, round and reactive pupils present Neck Neck: Yes normal visual inspection and Yes no lymphadenopathy Thyroid: Thyroid normal Resp Effort & Inspection: normal respiratory effort and able to speak in complete sentences Auscultation: clear to auscultation bilaterally Cardio Rate: regular rate Rhythm: regular rhythm Heart sounds: Normal, physiologic split S2 sound present Peripheral pulses: radial pulses present and posterior tibial pulses present GI Inspection: No distended, No Abdominal panniculus present and Yes obesity Palpation (GI): Soft to palpation, nontender, no guarding, not rigid and No hepatosplenomegaly present Percussion: Yes normal to percussion Auscultation: normal bowel sounds Rectal Exam - Female: deferred Skin General skin exam: no rashes or lesions noted, turgor normal, skin not dry, no jaundice, No spider nevi and no striae Rashes: no rashes Nails: normal Neuro General: oriented to person, oriented to place and oriented to time Cranial nerves: Yes Equal, round and reactive pupils present and Yes Normal hearing present Speech: No Abnormal speech present Extrem General: Yes normal to inspection, No clubbing, No cyanosis and No edema Psych Appearance: grossly normal and well kempt Mental Status: mental status grossly normal Speech and movement: Normal speech and movement present Affect: normal affect Attitude: cooperative Thought process: Normal thought process present and not confabulating Thought content: Normal thought content present Insight: Fair insight present (Psych) Judgement: Fair judgement present (Psych) Assessment & Plan Assessment & Plan (1) Tubular adenoma of colon: Comment: 2022. scope=>2cm TA ascending colon .repeat 3 yea.rs Code(s): D12.6 - Benign neoplasm of colon, unspecified Plan: The procedure needs to be repeated in 3 years. The procedure was well tolerated. The results were explained and the patient is agreeable to the follow-up interval as stated. The bowel pattern has returned to normal. Education was provided to tell any 1st degree relatives about their findings to be sure that they are screened by age 45. Educated that they will be put on a recall list when it is time for their repeat scope but should they move out of state or away from the hospital they will need to remember along with their primary to repeat the procedure in a timely fashion to avoid any adverse complications. [place] (2) Family history of colon cancer: Code(s): Z80.0 - Family history of malignant neoplasm of digestive organs Coding Level of Care Code Est Pt Level 3 (64233) Diagnoses Tubular adenoma of colon D12.6 Family history of colon cancer Z80.0
[2023-04-26 10:24] VITALS: BP 133/78; PULSE 68; BMI 31.8
== END 2023-04-26 11:22 | disposition home or self-care (01) ==
PROVIDERS: PCP Internal Medicine; Visit Provider Nurse Practitioner
DX: D12.6 Benign neoplasm of colon, unspecified (principal); Z80.0 Family history of malignant neoplasm of digestive organs
CPT/HCPCS: 99213

== ENCOUNTER → 2023-04-26 09:51 | Outpatient (BNVA) | payer MEDICARE, SELFPAY | PROVIDERS: PCP Internal Medicine; Visit Provider Nurse Practitioner | DX: K57.30 Diverticulosis of large intestine without perforation or abscess without bleeding (principal); K64.8 Other hemorrhoids; K63.89 Other specified diseases of intestine; Z86.010 Personal history of colon polyps; Z80.0 Family history of malignant neoplasm of digestive organs; Z98.890 Other specified postprocedural states | CPT/HCPCS: 99212 ==

== ENCOUNTER 2023-05-02 10:40 | Outpatient (AMB) | payer MEDICARE, SELFPAY ==
[2023-05-02 10:43] VITALS: BP 128/84; PULSE 79; TEMP 36.7; O2SAT 98; BMI 31.9
--- NOTE | 2023-05-02 10:43 | A.OFFVIS_ITS ---
Intake Vital Signs 05/02/23 10:43 Height 5 ft 1 in Weight 169 lb 1.513 oz BMI 31.9 BP 128/84 Blood Pressure Location Lt brachial Position Sitting Pulse 79 Pulse Source Pulse Oximeter Temp 98.1 F Temp Source Skin Pulse Oximetry (%) 98 Oxygen Delivery Method Room Air Intake Visit Reasons: Osteoporosis Allergies No Known Allergies Allergy (Verified 05/02/23 10:53) Medication List - Last Reconciled 05/02/23 by Jeny Hickman MD alendronate 70 mg PO QWEEK bupropion HCl 300 mg PO QAM cholecalciferol (vitamin D3) 50 mcg PO DAILY citalopram 20 mg PO DAILY clobetasol 0.05% 1 appl topical DAILY Estrace 0.01%(0.1mg/gram) (estradiol) 1 g vaginal 3XW NS [glucosamin plus msm 500 mg PO DAILY] glucosamine HCl 1,500 mg PO DAILY levocetirizine 5 mg PO BEDTIME PRN levothyroxine 50 mcg PO QAM omega-3 fatty acids-fish oil (Fish Oil Extra Strength) 1 cap PO DAILY sennosides (senna) 17.2 mg (2 x 8.6 mg) PO BEDTIME 30 days HPI HPI Comments History of Present Illness Details 78-year-old female with osteoporosis and generalized osteoarthritis returns for follow-up. She did not go for occupational therapy of the hands as they were feeling fine. She states that she fell last week while in yoga, she bumped her chin, did not break any bones. Feels a little off balance recently but no other falls. States that she was on Fosamax for a few years, many years ago but stopped it due to jaw problems, she felt that she was having some jaw pain and cracking with chewing. She had been on Evista for more than 10 years Initial history: This is a 77-year-old female with generalized osteoarthritis and osteopenia presents for initial visit. She used to see Dr. Johnson in the past. Patient continues to have pain and stiffness of her fingers. Swelling of her DIPs. She has intermittent pain in her knees and left elbow. She states that she went to occupational therapy for her hands which did help. She has been taking Evista for many years now for osteopenia. She states that she used to take Fosamax before but she stopped due to jaw problems. Her mother was diagnosed with breast cancer in her 80s and 2-3 years later [facility] Medical History Bilateral knee pain Hearing deficit Dense breast tissue on mammogram Left medial knee pain Irritable bowel syndrome with constipation Depression Dyslipidemia Osteopenia of left femoral neck Acquired hypothyroidism Primary osteoarthritis Surgical History H/O colonoscopy History of arthrodesis History of cataract surgery History of tubal ligation History of appendectomy Family History Father Dysrhythmia CVD (cardiovascular disease) Mother HTN (hypertension) Breast cancer Bladder cancer Mental health disorder Maternal Grandfather Stroke Maternal Grandmother Stroke Paternal Grandfather No problems noted. Paternal Grandmother Liver cancer Social History Housing: House Are you a primary palliative care physician to a significant other at home: No Do you presently have visiting nurse or other home services: No Patient Tobacco Use Status: Former Tobacco user Years Smoked: 1 yr e-Cigarette/Vaping Use: Never Used Second Hand Smoke Exposure: No service: No Current occupational status: retired Cognitive needs: No Hearing needs: No Vision needs: Yes Review of Systems Neuro Details: Poor balance Physical Exam Vital Signs: Last Vital Signs Temp 98.1 F 05/02/23 10:43 Pulse 79 05/02/23 10:43 BP 128/84 05/02/23 10:43 Pulse Ox 98 05/02/23 10:43 Oxygen Delivery Method Room Air 05/02/23 10:43 BMI result Body Mass Index 31.9 Const General: cooperative, healthy appearing and comfortable Nutritional Appearance: obese Orientation/consciousness: patient oriented x3 Limitations: no limitations HEENT Head: Yes normocephalic and Yes atraumatic Mouth: moist mucous membranes Resp Effort & Inspection: normal respiratory effort and able to speak in complete sentences Neuro General: patient oriented x3 Extrem Other: Significant osteoarthritic changes of both hands with prominent Heberden's nodes that are mildly tender to palpation Normal nailfold capillaroscopy Bilateral knee crepitus Results Reviewed Results Reviewed: Bilateral knee standing x-rays? 11/2020? Impression no significant bony abnormality Bilateral hand x-ray 02/2022? Mild diffuse osteopenia.? No fracture or malalignment.? Severe left 2nd through the 3rd PIP and right 2nd and 3rd the IP joint space narrowing and osteophytes.? Mild left 5th PIP and right 3rd PIP joint space narrowing and spurring.? No destructive or suspicious bone lesions.? No erosions.? No soft tissue swelling or calcifications Left foot x-ray from 02/2020? 1. Severe 1st MTP joint arthritis 2.Mild calcaneal enthesopathy Right foot x-ray/2019? Fused 1st MTP joint which may be secondary to trauma or advanced osteoarthritis.?? 2. Mild calcaneal enthesopathy Assessment & Plan Assessment & Plan (1) Osteoporosis: Comment: DEXA 03/2023 Showed worsening T-score at left femoral neck from -2.3 in 2019 1--2.7 L-spine T-score -1.6, unchanged from 2020 Code(s): M81.0 - Age-related osteoporosis without current pathological fracture Plan: Patient was diagnosed with osteopenia many years ago. She states that she was on Fosamax for a few years but stopped it due to jaw pain, I suspect her symptoms were due to TMJ arthritis rather than ONJ. She has been on Evista for more than 10 years. She has worsening T-score. Will need to change her osteoporosis. Discussed risks and benefits of alendronate. Patient agreed to proceed Patient just had crown implantation a few weeks ago and planning to get another ground. Advised patient to get the new crown done as soon as she can and start Fosamax after it heals Vitamin-D level at target. Calcium level is normal. Advised patient to consume more dairy products Plan to repeat DEXA alendronate fall of 2024 (2) Imbalance: Code(s): R26.89 - Other abnormalities of gait and mobility Plan: Referred to PT/OT (3) Osteoarthritis of hands, bilateral: Code(s): M19.041 - Primary osteoarthritis, right hand; M19.042 - Primary osteoarthritis, left hand Qualifiers: Osteoarthritis type: primary Qualified Code(s): M19.041 - Primary osteoarthritis, right hand; M19.042 - Primary osteoarthritis, left hand Plan: Not bothersome today Plan I spent 30 minutes reviewing patient's chart, evaluating patient, placing orders counseling patient and documenting in the chart Orders: Orders PT Evaluation and Treatment Today R26.89 - Other abnormalities of gait and mobility OT Evaluation and Treatment Today R26.89 - Other abnormalities of gait and mobility Medications: New alendronate Take 1 tab once weekly, 1st thing in the morning, on an empty stomach, with a large glass of water (at least 6 oz) and stay upright for 30 minute 70 mg PO QWEEK 12 tabs 1RF Discontinued raloxifene Discontinued Reason: Doctor's Order 60 mg PO DAILY 90 tabs 1RF Coding Level of Care Code Est Pt Level 4 (20499) Diagnoses Osteoporosis M81.0 Imbalance R26.89 Primary osteoarthritis of both hands M19.041; M19.042 Osteoarthritis type: primary
== END 2023-05-02 11:22 | disposition home or self-care (01) ==
PROVIDERS: PCP Internal Medicine; Visit Provider Student in an Organized Health Care Education/Training Program
DX: M81.0 Age-related osteoporosis without current pathological fracture (principal); R26.89 Other abnormalities of gait and mobility; M19.041 Primary osteoarthritis, right hand; M19.042 Primary osteoarthritis, left hand
CPT/HCPCS: 99214

== ENCOUNTER → 2023-05-02 10:40 | Outpatient (BNVA) | payer MEDICARE, SELFPAY | PROVIDERS: PCP Internal Medicine; Visit Provider Student in an Organized Health Care Education/Training Program | DX: M81.0 Age-related osteoporosis without current pathological fracture (principal); R26.89 Other abnormalities of gait and mobility; M19.041 Primary osteoarthritis, right hand; M19.042 Primary osteoarthritis, left hand | CPT/HCPCS: 99212 ==

== ENCOUNTER 2023-05-10 08:17 | Outpatient (REF) | payer MEDICARE, SELFPAY ==
[2023-05-10 12:28] LABS: Free T4 (Free Thyroxine) 0.96 ng/dL (0.71-1.85); Vitamin D 25-OH Total 41.4 ng/mL (>30)
== END 2023-05-10 08:18 | disposition home or self-care (01) ==
LOC: HO.HMGCLDS 08:17
PROVIDERS: PCP Internal Medicine; Visit Provider Internal Medicine
DX: E03.9 Hypothyroidism, unspecified (principal); F32.9 Major depressive disorder, single episode, unspecified; M85.852 Other specified disorders of bone density and structure, left thigh; Z78.0 Asymptomatic menopausal state
CPT/HCPCS: 36415; 82306; 84439; 84443

== ENCOUNTER 2023-05-14 12:09 | Outpatient (AMB) | payer MEDICARE, SELFPAY ==
--- NOTE | 2023-05-14 12:20 | A.OFFPC_ITS ---
<Statement entered by Yvette Shaffer MD - 08/30/25 23:54> This note has been administratively?closed. Vital Signs 05/14/23 12:21 Height 5 ft 1 in Weight 174 lb 8 oz BMI 33.0 BP 130/88 Blood Pressure Location Lt brachial Position Sitting Pulse 71 Pulse Source Pulse Oximeter Pulse Oximetry (%) 98 Oxygen Delivery Method Room Air Intake Visit Reasons: Annual PE Allergies No Known Allergies Allergy (Verified 07/08/25 13:41) Medication List - Last Reconciled 05/14/23 by Yvette Shaffer MD alendronate 70 mg PO QWEEK bupropion HCl 300 mg PO QAM cholecalciferol (vitamin D3) 50 mcg PO DAILY citalopram 20 mg PO DAILY clobetasol 0.05% 1 appl topical DAILY [glucosamin plus msm 500 mg PO DAILY] glucosamine HCl 1,500 mg PO DAILY levothyroxine 50 mcg PO QAM magnesium oxide 500 mg PO DAILY omega-3 fatty acids-fish oil (Fish Oil Extra Strength) 1 cap PO DAILY sennosides (senna) 17.2 mg (2 x 8.6 mg) PO BEDTIME 30 days Tobacco use date assessed: 05/14/23 Fall risk assessment: 1 Fall in past year Last assessed Fall Risk: 05/14/23 Dental Screening Dental Screen Date: 05/14/23 Did you have a dental visit in the last 12 months?: Yes Did you have a dental problem in the last 6 months where you did not have access to dental care?: No Was dental information given to patient?: Patient has dentist [facility] Medical History (Updated 06/07/25 @ 22:17 by Yvette Shaffer MD) Pruritic intertrigo Hearing deficit Dense breast tissue on mammogram Irritable bowel syndrome with constipation Depression Dyslipidemia Osteopenia of left femoral neck Acquired hypothyroidism Primary osteoarthritis Surgical History H/O knee surgery H/O colonoscopy History of arthrodesis History of cataract surgery History of tubal ligation History of appendectomy Family History Father Dysrhythmia CVD (cardiovascular disease) Mother HTN (hypertension) Breast cancer Bladder cancer Mental health disorder Maternal Grandfather Stroke Maternal Grandmother Stroke Paternal Grandfather No problems noted. Paternal Grandmother Liver cancer Social History Housing: House Are you a primary managed care specialist to a significant other at home: No Do you presently have visiting nurse or other home services: No Alcohol intake: current Alcohol intake frequency: holidays/special occasions only Patient Tobacco Use Status: Former Tobacco user Years Smoked: 1 yr e-Cigarette/Vaping Use: Never Used Second Hand Smoke Exposure: No Advance Directives Date on File: 11/15/23 service: No Current occupational status: retired Cognitive needs: No Hearing needs: No Vision needs: Yes Questionnaire Thrive Questionnaire Date Thrive assessed: 01/25/22 EVELINE-7 AMB Questionnaire EVELINE-7 Date EVELINE - 7 assessed: 01/25/22 Source: Developed by Drs. Rajinder San, Terri Martines, Donte Cannon and colleagues, with an educational simi from [employer]. Physical exam (Primary Care) Vital Signs: Last Vital Signs Pulse 71 05/14/23 12:21 BP 130/88 05/14/23 12:21 Pulse Ox 98 05/14/23 12:21 Oxygen Delivery Method Room Air 05/14/23 12:21 BMI result Body Mass Index 33.0 Tobacco/Smoking Status: Tobacco use Status Tobacco use date assessed 05/14/23 05/14/23 12:28 Patient Tobacco Use Status Former Tobacco user 05/14/23 12:20 e-Cigarette/Vaping Use Never Used 05/14/23 12:20 Thrive Assessment: Date of Thrive Assessment Date Thrive assessed 01/25/22 05/14/23 12:20 Coding Level of Care Code Admin Sign Off/No Billing Diagnoses Dyslipidemia E78.5 Acquired hypothyroidism E03.9
[2023-05-14 12:21] VITALS: BP 130/88; PULSE 71; O2SAT 98; BMI 33.0
== END 2023-05-14 13:17 | disposition home or self-care (01) ==
PROVIDERS: PCP Internal Medicine; Visit Provider Internal Medicine
DX: E78.5 Hyperlipidemia, unspecified (principal); E03.9 Hypothyroidism, unspecified
CPT/HCPCS: 99499

== ENCOUNTER 2023-07-21 11:06 | Emergency (ER) | payer MEDICARE, SELFPAY ==
--- NOTE | ~2023-07-21 | US_ITS ---
EXAMINATION: US VENOUS ULTRASOUND WITH DOPPLER LOWER EXTREMITY, LEFT CLINICAL INFORMATION: Pain and swelling. COMPARISON: None available. TECHNIQUE: Ultrasound of the deep veins is performed from the hip to the calf with compression sonography and color and pulse Doppler assessment. Spectral analysis with color-flow imaging is performed. FINDINGS: There is normal venous compression and respiratory variation and augmented flow. The visualized common femoral vein, superficial femoral vein, profunda femoral vein, popliteal vein, no evidence of deep venous thrombosis. A regular anechoic fluid collection with no measurable internal flow measures approximately 6 cm x 1 cm x 5 cm. A second adjacent anechoic region which may be contiguous with the other region measures approximately 2.8 cm x 1.1 cm x 1.0 cm. The left peroneal vein is not visualized. If the patient's symptoms persist, followup ultrasound in 5 days 7 days might be of value to exclude proximal propagation from a non-visualized calf vein. US/US venous duplex LE IMPRESSION: No DVT demonstrated in the left lower extremity. Left popliteal fossa Torres's cyst.
[2023-07-21 11:11] VITALS: BP 142/88; PULSE 75; RESP 16; TEMP 37.1; O2SAT 98; BMI 33.2
--- NOTE | 2023-07-21 11:33 | ED_ITS ---
HPI - General Adult General Chief complaint: General Medical Stated complaint: l leg swelling Time Seen by Provider: 07/21/23 11:12 Source: patient Mode of arrival: ambulatory History of Present Illness HPI narrative: 78-year-old female with history of depression presents with 2 days left calf pain she feels like the left lower leg is bigger than the right leg, denies any trauma or recent travel. Related Data Home Medications Medication Instructions Recorded Confirmed cholecalciferol (vitamin D3) 50 50 mcg PO DAILY 09/13/21 04/03/23 mcg (2,000 unit) capsule glucosamine HCl 1,500 mg tablet 1,500 mg PO DAILY 09/13/21 10/30/21 glucosamin plus msm 500 mg PO DAILY 12/12/22 04/03/23 omega-3 fatty acids-fish oil [Fish 1 cap PO DAILY 12/12/22 04/03/23 Oil Extra Strength] bupropion HCl 150 mg 24 hr tablet, 300 mg PO QAM 04/26/23 extended release magnesium oxide 500 mg tablet 500 mg PO DAILY 05/14/23 Previous Rx's Medication Instructions Recorded sennosides 8.6 mg capsule (senna) 17.2 mg (2 x 8.6 mg) PO BEDTIME 09/13/21 constipation 30 days #60 caps clobetasol 0.05 % topical gel 1 appl topical DAILY #30 grams 02/16/23 levothyroxine 50 mcg tablet 50 mcg PO QAM #90 tabs 03/14/23 alendronate 70 mg tablet 70 mg PO QWEEK #12 tabs 05/02/23 citalopram 20 mg tablet 20 mg PO DAILY #90 tabs 06/15/23 Allergies Allergy/AdvReac Type Severity Reaction Status Date / Time No Known Allergies Allergy Verified 07/21/23 11:16 Review of Systems Review of Systems: Pertinent positives and negatives as stated in HPI [facility] Past Medical History Source: nursing notes reviewed Medical History Bilateral knee pain Hearing deficit Dense breast tissue on mammogram Left medial knee pain Irritable bowel syndrome with constipation Depression Dyslipidemia Osteopenia of left femoral neck Acquired hypothyroidism Primary osteoarthritis Surgical History H/O colonoscopy History of arthrodesis History of cataract surgery History of tubal ligation History of appendectomy Family History Family History Father Dysrhythmia CVD (cardiovascular disease) Mother HTN (hypertension) Breast cancer Bladder cancer Mental health disorder Maternal Grandfather Stroke Maternal Grandmother Stroke Paternal Grandfather No problems noted. Paternal Grandmother Liver cancer Social History Social History Housing: House Are you a primary senior care provider to a significant other at home: No Do you presently have visiting nurse or other home services: No Alcohol intake: current Alcohol intake frequency: a few times a week Patient Tobacco Use Status: Former Tobacco user Years Smoked: 1 yr Smoked in Last 30 Days: No e-Cigarette/Vaping Use: Never Used Second Hand Smoke Exposure: No Use of substances other than those prescribed or required for medical reasons: No Advance Directives: No Advance Directives Information Provided: No service: No Current occupational status: retired Cognitive needs: No Hearing needs: No Vision needs: Yes Physical Exam ED Vital Signs: Vital Signs - 24 hr 07/21/23 11:11 Temperature 98.8 F Pulse Rate 75 Respiratory Rate 16 Blood Pressure 142/88 H Pulse Oximetry 98 Oxygen Delivery Method Room Air BMI result Body Mass Index 33.2 VITAL SIGNS: Reviewed. GENERAL: Well developed, well nourished, in no acute distress. HEAD: Normocephalic/atraumatic EYES: PERRLA, EOMI LUNGS: Normal breath sounds. No adventitious sounds or accessory muscle use. SpO2<98> CARDIOVASCULAR: Regular rate and rhythm without noted murmurs ABDOMEN: Soft, non-tender, non-distended with bowel sounds. MUSCULOSKELETAL: No tenderness, deformities, or effusions noted on gross inspection. EXTREMITIES: No cyanosis, clubbing or edema. LLE: ? larger in circumference, no obvious deformity, no erythema/induration, neurovascular is intact distal, there is tenderness to palpation along the mid calf area but I do not appreciate a cord SKIN: Inspection of the skin reveals no rashes NEUROLOGIC: Alert and oriented x 4. Strength and sensation to light touch were grossly intact x 4. Medical Decision Making Medical Decision Making MDM Narrative: 78-year-old female with history and clinical presentation, DDX: Thrombophlebitis, musculoskeletal pain, ruptured Torres cyst, low clinical suspicion for DVT but will proceed with D-dimer prior to ultrasound. I reviewed all investigations and noted that the D-dimer was slightly elevated without respiratory or cardiac symptoms, I do feel that if I did and age adjustment this would probably be negligible but I proceed with the ultrasound of the left lower extremity which demonstrate no DVT but there is presence of Torres cyst. Will apply Ashish wrap and discharge patient with instructions follow- up with primary care provider. Differential Diagnosis Differential Diagnoses: The differential diagnosis associated with the presentation includes Please see the discussion above Admission/Observation Consideration of admission/observation: Escalation of care including admission/observation considered Please see the discussion above Lab Data MDM Lab Attestation statement: I reviewed the patient's lab results. Please see the discussion above Labs: Lab Results 07/21/23 Range/Units 11:41 D-Dimer High Sensitivty 328 NG/ML Radiology Impression Discussion of test interpretation with radiology: I have reviewed the radiologist's reading. Radiologist Impression: Please see the discussion above External Record Review External record reviewed: Outpatient record, Prior outpatient labs and Prior outpatient radiology Critical Care Time Critical Care Time Critical Care Time: Yes Total Critical Care Time: 30 Attestation: I personally attest to this time spent taking care of the patient. Discharge Plan Discharge Clinical Impression: Torres's cyst Patient Disposition: Home, Self-Care Instructions: Bakers Cyst (ED) Additional Instructions: 1. Recommend [id number] Tylenol/ibuprofen as needed for pain control. You may use an Ashish wrap intermittently for symptom relief but you should not use this any longer than the next 2 days. 2. Resume all home medications as prescribed. 3. Follow-up with primary care doctor on Sunday. Return to the ER for any worsening symptoms. Prescriptions: No Action clobetasol 0.05 % gel 1 appl topical DAILY Qty: 30 3RF levothyroxine 50 mcg tablet 50 mcg PO QAM Qty: 90 1RF citalopram 20 mg tablet 20 mg PO DAILY Qty: 90 1RF magnesium oxide 500 mg tablet 500 mg PO DAILY omega-3 fatty acids-fish oil [Fish Oil Extra Strength] 1 cap PO DAILY glucosamin plus msm 500 mg PO DAILY glucosamine HCl 1,500 mg tablet 1,500 mg PO DAILY Rx Instructions: administer with a meal cholecalciferol (vitamin D3) 50 mcg (2,000 unit) capsule 50 mcg PO DAILY senna 8.6 mg capsule 17.2 mg PO BEDTIME 30 Days Qty: 60 6RF alendronate 70 mg tablet 70 mg PO QWEEK Qty: 12 1RF Rx Instructions: Take 1 tab once weekly, 1st thing in the morning, on an empty stomach, with a large glass of water (at least 6 oz) and stay upright for 30 minute bupropion HCl 150 mg tablet extended release 24 hr 300 mg PO QAM Referrals: Yvette Shaffer MD [Primary Care Provider] -
[2023-07-21 11:56] LABS: D Dimer High Sensitivity 328 NG/ML
[2023-07-21 13:18] VITALS: BP 160/80; PULSE 66; RESP 16; TEMP 36.9; O2SAT 100
== END 2023-07-21 13:25 | disposition home or self-care (01) ==
PROVIDERS: Emergency Provider Student in an Organized Health Care Education/Training Program; PCP Internal Medicine
DX: R60.0 Localized edema (principal); M79.605 Pain in left leg; M71.22 Synovial cyst of popliteal space [Baker], left knee; Z79.899 Other long term (current) drug therapy; Z87.891 Personal history of nicotine dependence
CPT/HCPCS: 36415; 85379; 93971; 99284

== ENCOUNTER 2023-07-26 14:00 | Outpatient (RCR) | payer MEDICARE, SELFPAY ==
--- NOTE | 2023-07-03 15:06 | MHC.PT.EP ---
[facility] [place] [facility] [place] [facility] [place] [facility] [address] Mcehe Sharp [address] [phone] F: [phone] F: [phone] F: [phone] F: [phone] Physical Therapy Plan of Care Date of Evaluation: 07/03/23 Date of Surgery: Diagnosis: This is a 78 yo female presenting to skilled PT with a script for gait and mobility abnormalities. Assessment: This is a 78 yo female presenting to skilled PT with a script for gait and mobility abnormalities. Patient reports that she recently has been to her personnel analyst who did not think she was steady on her feet when she walked at the appointment. She reports that she had a fall about a month ago when trying to get out of her bed when her hand slipped on the sheet. She also reports another fall when she was attempting to do yoga in [facility] a few months back as well. The patient reports occasionally feeling unsteady, the L knee ayla and reports occasionally using her as an AD when ambulating. She reports she has aches and pains that consists of the L knee, R elbow and hands which are achy. She has been here to this facility in the past (dc'd in march of this year) for her L knee, she does not continue any HEP at this time. Assessment reveals pain that ranges from up to a 7/10 at the worst. Patient demos decreased BLE and lumbar ROM, strength of BLE[s, TTP at L knee medial joint line, impaired posture with forward head and rounded shoulders, impaired gait as described in evaluation and decreased balance (falls risk based on DGI). Based on functional limitations, impaired QOL and pain tolerance patient is a good candidate for skilled PT 2x/wk for 4wks. Frequency and Duration: The patient will be seen 2x/wk for 4wks Short Term Goals: I in HEP for strength Return to senior center exercise programs Pt will demonstrate improved postural awareness and understanding of core engagement with supine and standing tasks without cues throughout session to improve safety. Editor Sound Goals: I in HEP for balance, understands safety strategies and how to perform at home without therapist assist Improve hip strength by 1 MMT Demo improved gait pattern without shuffling and improved awareness of posture Improve balance score on DGI by at least 5 points Treatment Plan: Modalities to reduce pain, spasms and effusion. Manual therapy to restore motion and function. Therapeutic exercise to improve strength and flexibility. Neuromuscular re-education for posture and balance. Therapeutic activities to return to functional activities of daily living. Electronically signed by: Lisa Hooper PT Please sign and return to therapist. Thank you for your referral.
--- NOTE | 2023-08-27 13:50 | MHC.PT.DC ---
[facility] [place] Office [place] Office [place] Office [address] Meche Sharp [address] [phone] F: [phone] F: [phone] F: [phone] F: [phone] Physical Therapy Discharge Report Diagnosis: This is a 78 yo female presenting to skilled PT with a script for gait and mobility abnormalities. Date of Surgery: Date of Evaluation: 07/03/23 Date of Discharge: 08/27/23 Treatments to Date: 6 Cancellations to Date: 0 No Shows to Date: 0 Discharge Status: Patient Elected to Stop Discharge Summary: Patient with a new script and wanting new evaluation. Patient came to 6 visits of PT and then did not return for tx after 30 days, DC'd for new evaluation. Electronically signed by: Lisa Hooper PT Please sign and return to therapist. Thank you for your referral.
== END 2023-08-27 13:51 | disposition home or self-care (01) ==
LOC: HO.PTCHIC 14:00
PROVIDERS: PCP Internal Medicine; Visit Provider Student in an Organized Health Care Education/Training Program
DX: R26.89 Other abnormalities of gait and mobility (principal)
CPT/HCPCS: 97110; 97112; 97162

== ENCOUNTER 2023-08-09 10:56 | Outpatient (AMB) | payer MEDICARE, SELFPAY ==
[2023-08-09 11:10] VITALS: BMI 33.1
--- NOTE | 2023-08-09 11:10 | MHC.OFFVIS ---
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 Patient reports that she has had the pain for about 5 years. Patient denies any numbnes or tingling. The patient states that her left knee will give out several times per day. She denies any fevers or chills. She has tried Tylenol and anti-inflammatory medicines which gave her minimal relief. She would like to hold off on surgery for as long as possible. Allergies No Known Allergies Allergy (Verified 08/09/23 11:14) Medication List - Last Reconciled 08/09/23 by Moses Cardoza MD alendronate 70 mg PO QWEEK bupropion HCl 300 mg PO QAM cholecalciferol (vitamin D3) 50 mcg PO DAILY citalopram 20 mg PO DAILY clobetasol 0.05% 1 appl topical DAILY [glucosamin plus msm 500 mg PO DAILY] glucosamine HCl 1,500 mg PO DAILY levothyroxine 50 mcg PO QAM magnesium oxide 500 mg PO DAILY omega-3 fatty acids-fish oil (Fish Oil Extra Strength) 1 cap PO DAILY sennosides (senna) 17.2 mg (2 x 8.6 mg) PO BEDTIME 30 days [facility] Medical History Bilateral knee pain Hearing deficit Dense breast tissue on mammogram Left medial knee pain Irritable bowel syndrome with constipation Depression Dyslipidemia Osteopenia of left femoral neck Acquired hypothyroidism Primary osteoarthritis Surgical History H/O colonoscopy History of arthrodesis History of cataract surgery History of tubal ligation History of appendectomy Family History Father Dysrhythmia CVD (cardiovascular disease) Mother HTN (hypertension) Breast cancer Bladder cancer Mental health disorder Maternal Grandfather Stroke Maternal Grandmother Stroke Paternal Grandfather No problems noted. Paternal Grandmother Liver cancer Social History Housing: House Are you a primary associate director career services to a significant other at home: No Do you presently have visiting nurse or other home services: No Alcohol intake: current Alcohol intake frequency: a few times a week Patient Tobacco Use Status: Former Tobacco user Years Smoked: 1 yr e-Cigarette/Vaping Use: Never Used Second Hand Smoke Exposure: No service: No Current occupational status: retired Cognitive needs: No Hearing needs: No Vision needs: Yes Physical Exam Vital Signs: BMI result Body Mass Index 33.1 Const Other: Well-nourished well-developed very friendly female awake alert and oriented x3 in no acute distress Extrem Other: Bilateral lower extremity examination shows good capillary refill, no skin lesions noted, normal sensation light touch Left knee examination shows a minimal effusion, mild crepitus with range of motion, tenderness along her medial joint line, positive Vibha's test, no instability Results Reviewed Results Reviewed: X-rays of the patient's left knee show mild diffuse joint space narrowing, no acute bony abnormalities Assessment & Plan Assessment & Plan (1) Left knee pain: Code(s): M25.562 - Pain in left knee Plan Ms. Mireles presents with left knee pain and mechanical symptoms due to early degenerative joint disease as well as possible tearing of her medial meniscus. I had a lengthy discussion with the patient regarding the treatment options. She wishes to hold off on surgery for as long as possible. I agree with this plan. I will see whether or not the patient's insurance company will cover a viscosupplementation injection. I will see her back once the injection is available. The patient was also fitted with a Drytex knee brace because of her symptoms of instability. I do feel that the knee brace is a medical necessity to help prevent future falls. Feel free to call me at any time should questions regarding her orthopedic management arise. Thank you very much for asking me to see this very friendly patient. I spent 22 minutes in reviewing the patient's records and imaging studies, seeing the patient and documenting in the medical record. Orders: Orders XR knee LT 3V Today M25.562 - Pain in left knee Coding Level of Care Code New Pt Level 2 (99460) Diagnoses Left knee pain M25.562
== END 2023-08-09 12:05 | disposition home or self-care (01) ==
PROVIDERS: PCP Internal Medicine; Visit Provider Orthopaedic Surgery
DX: M25.562 Pain in left knee (principal)
CPT/HCPCS: 99202

== ENCOUNTER 2023-08-09 11:18 | Outpatient (REF) | payer MEDICARE, SELFPAY ==
--- NOTE | ~2023-08-09 | XR_ITS ---
EXAMINATION: XR KNEE, LEFT CLINICAL INFORMATION: Pain of left knee COMPARISON: None available. TECHNIQUE: Three views of the left knee. FINDINGS: Alignment is normal. No fracture or subluxation. Small joint effusion is evident. Subchondral cystic changes and osteophyte formation of the tibiofemoral and patellofemoral compartments. Patella is well-positioned within the trochlear groove. There is mild narrowing of the knee joint spaces. XR/XR knee LT 3V IMPRESSION: [id number] tricompartmental osteoarthritis and small effusion of the left knee.
== END 2023-08-09 11:19 | disposition home or self-care (01) ==
LOC: HO.HOSX 11:18
PROVIDERS: Visit Provider Orthopaedic Surgery
DX: M25.562 Pain in left knee (principal)
CPT/HCPCS: 73562; 99202

== ENCOUNTER 2023-08-21 14:42 | Outpatient (AMB) | payer MEDICARE, SELFPAY ==
[2023-08-21 14:45] VITALS: BMI 33.1
--- NOTE | 2023-08-21 14:45 | A.OFFVIS_ITS ---
Intake Vital Signs 08/21/23 14:45 Height 5 ft 1 in Weight 175 lb BMI 33.1 Intake Visit Reasons: Left Knee Durolane Gel Injection Intake Note: Thelma is a 78 year old female who presents with progressively worsening Left knee pain. Patient reports that she has had the pain for about 5 years. Patient denies any numbnes or tingling. She has done physical therapy exercises which aggravated her pain. She denies any fevers or chills. She has tried Tylenol and anti-inflammatory medicines which gave her minimal relief. She would like to hold off on surgery for as long as possible. Allergies No Known Allergies Allergy (Verified 08/21/23 14:52) [facility] Medical History Bilateral knee pain Hearing deficit Dense breast tissue on mammogram Left medial knee pain Irritable bowel syndrome with constipation Depression Dyslipidemia Osteopenia of left femoral neck Acquired hypothyroidism Primary osteoarthritis Surgical History H/O colonoscopy History of arthrodesis History of cataract surgery History of tubal ligation History of appendectomy Family History Father Dysrhythmia CVD (cardiovascular disease) Mother HTN (hypertension) Breast cancer Bladder cancer Mental health disorder Maternal Grandfather Stroke Maternal Grandmother Stroke Paternal Grandfather No problems noted. Paternal Grandmother Liver cancer Social History Housing: House Are you a primary client care representative to a significant other at home: No Do you presently have visiting nurse or other home services: No Alcohol intake: current Alcohol intake frequency: a few times a week Patient Tobacco Use Status: Former Tobacco user Years Smoked: 1 yr e-Cigarette/Vaping Use: Never Used Second Hand Smoke Exposure: No service: No Current occupational status: retired Cognitive needs: No Hearing needs: No Vision needs: Yes Physical Exam Vital Signs: BMI result Body Mass Index 33.1 Const Other: Well-nourished well-developed very friendly female awake alert and oriented x3 in no acute distress Extrem Other: Bilateral lower extremity examination shows good capillary refill, no skin lesions noted, normal sensation light touch Left knee examination shows a minimal effusion, palpable crepitus with range of motion, pain with range of motion, no instability Office Procedures Joint Injection/Drain Joint Injection/Drain Primary Site: left knee Prep: site was prepped using aseptic technique Injected: 60 mg of (Durolane) and 1% plain lidocaine Procedure: The patient tolerated the procedure well Coding 10203 - Large joint Procedure code (CPT) selection complete Results Reviewed Results Reviewed: X-rays of the patient's left knee show joint space narrowing, subchondral sclerosis, no acute bony abnormalities Assessment & Plan Assessment & Plan (1) Left knee pain: Code(s): M25.562 - Pain in left knee Plan Ms. Mireles presents with left knee pain due to degenerative joint disease. I had a lengthy discussion with the patient regarding the treatment options. She wishes to hold off on surgery if at all possible. I agree with this plan. The risks and benefits of a Durolane viscosupplementation injection were discussed at length with the patient. The patient wished to proceed. She tolerated the injection well. She will continue with her home exercise program. She will follow up with me on an as-needed basis should her symptoms not plateau at an unacceptable level over the next few months. Feel free to call me at any time should questions regarding her orthopedic management arise. I spent 22 minutes in reviewing the patient's records and imaging studies, seeing the patient and documenting in the medical record. Orders: Orders PT Evaluation and Treatment 08/21/23 M25.561 - Pain in right knee, M25.562 - Pain in left knee, R26.89 - Other abnormalities of gait and mobility AMB Joint Injection/Aspiration 08/21/23 M25.562 - Pain in left knee Coding Level of Care Code Est Pt Level 2 (31904) Diagnoses Left knee pain M25.562 CPT Codes Coding - 72068 Large joint: 36119 - Large joint ([id number])
== END 2023-08-21 15:06 | disposition home or self-care (01) ==
PROVIDERS: PCP Internal Medicine; Visit Provider Orthopaedic Surgery
DX: M17.12 Unilateral primary osteoarthritis, left knee (principal)
CPT/HCPCS: 20610

== ENCOUNTER → 2023-08-21 14:42 | Outpatient (BNVA) | payer MEDICARE, SELFPAY | PROVIDERS: PCP Internal Medicine; Visit Provider Orthopaedic Surgery | DX: M17.12 Unilateral primary osteoarthritis, left knee (principal) | CPT/HCPCS: 20610; J7318 ==

== ENCOUNTER 2023-09-26 10:00 | Outpatient (RCR) | payer MEDICARE, SELFPAY ==
--- NOTE | 2023-08-30 14:55 | MHC.PT.EP ---
[facility] [place] Office [place] Office [place] Office [address] Meche Sharp [address] [phone] F: [phone] F: [phone] F: [phone] F: [phone] Physical Therapy Plan of Care Date of Evaluation: 08/30/23 Date of Surgery: Diagnosis: This is a 78 yo female presenting to skilled PT with a script for L knee pain. Assessment: This is a 78 yo female presenting to skilled PT with a script for L knee pain. Patient has had ongoing L knee pain for at least 5 years now. The patient reports occasionally feeling unsteady, the L knee ayla and reports occasionally using a walking cane when ambulating. However, towards the end of Jun 2023 patient had an incident of increased leg swelling and was worried about a blood clot, she went to the ED and it was deemed a thomas's cyst. She has tried Tylenol and anti-inflammatory medicines which gave her minimal relief. She would like to hold off on surgery for as long as possible. She is being followed by [facility] ortho and had a gel injection performed on 08/21/23 (some relief). The patient was also fitted with a Drytex knee brace because of her symptoms of instability (does not like it very much). She has been here to this facility in the past (dc'd in March of this year for her L knee and then more recently last month for gait instability), she does not continue any HEP at this time for her knee. Her pain is located throughout the knee joint, posterior knee and ITB. Her pain is achy and she reports swelling throughout the extremity. She has increased pain with sitting, walking and squatting. Assessment reveals pain that ranges from up to a 7/10 at the worst. Patient demos decreased BLE and lumbar ROM, strength of BLEs, TTP at L knee medial joint line, impaired posture with forward head and rounded shoulders, impaired gait as described in evaluation and decreased balance. Based on functional limitations, impaired QOL and pain tolerance patient is a good candidate for skilled PT 2x/wk for 4wks. Frequency and Duration: The patient will be seen 2x/wk for 4wks Short Term Goals: (in 2 weeks) Patient will improve knee AROM by at least 10 degs without assist Patient will demo good undestanding and performance of quad set in multiple different planes without cues from PT and tolerate 10 reps of SLR Patient will be I in HEP Snf Goals: (in 4 weeks) Patient will report 75% improvement in balance and strength of LLE as evidenced by reports no of falls or buckling in LE Patient will improve LEFs by 10 points Patient will demo WFL AROM of knee and ankle Patient will demo proper squat and lift techniques without increase in pain Patient will negotiate stairs with reciprocal gait pattern ascending and descending Treatment Plan: Modalities to reduce pain, spasms and effusion. Manual therapy to restore motion and function. Therapeutic exercise to improve strength and flexibility. Neuromuscular re-education for posture and balance. Therapeutic activities to return to functional activities of daily living. Electronically signed by: Lisa Hooper PT Please sign and return to therapist. Thank you for your referral.
--- NOTE | 2023-10-25 08:25 | MHC.PT.DC ---
[facility] [place] [facility] [place] [facility] [place] [facility] [address] Meche Sharp [address] [phone] F: [phone] F: [phone] F: [phone] F: [phone] Physical Therapy Discharge Report Diagnosis: This is a 78 yo female presenting to skilled PT with a script for L knee pain. Date of Surgery: Date of Evaluation: 08/30/23 Date of Discharge: 10/25/23 Treatments to Date: 6 Cancellations to Date: 0 No Shows to Date: Discharge Status: Independent with HEP Patient Elected to Stop Discharge Summary: Note from the last session: 09/26/23: Due to increased pain we trialed light stretching, held weight bearing and performed manual work. She felt a little better after this tx and felt like she could walk better. I will reassess her symptoms again next session, she sees the ortho again next week. Return to weightbearing again next session if tolerated. Ended with ice. Patient did not return for further tx and chart was DC'd after 30 days of not being at the facility. [ End ] Electronically signed by: Lisa Hooper PT Please sign and return to therapist. Thank you for your referral.
== END 2023-10-25 08:26 | disposition home or self-care (01) ==
LOC: HO.PTCHIC 10:00
PROVIDERS: PCP Internal Medicine; Visit Provider Orthopaedic Surgery
DX: M25.561 Pain in right knee (principal); M25.562 Pain in left knee; R26.89 Other abnormalities of gait and mobility
CPT/HCPCS: 97110; 97162

== ENCOUNTER 2023-10-04 09:30 | Outpatient (AMB) | payer MEDICARE, SELFPAY ==
[2023-10-04 09:33] VITALS: BMI 33.1
--- NOTE | 2023-10-04 09:33 | A.OFFVIS_ITS ---
Intake Vital Signs 10/04/23 09:33 Height 5 ft 1 in Weight 175 lb BMI 33.1 Intake Visit Reasons: OV-Left Knee Durolane Gel Injection- follow up Intake Note: Thelma is a 78 year old female who presents with complaints of bilateral knee pains. The patient did undergo a left knee Durolane viscosupplementation injection on 08/21/2023. The patient got minimal relief from that injection. The patient states that she has discomfort along the medial aspect of both of her knees. She has tried Tylenol which gives her minimal relief. She has also done physical therapy exercises which aggravated her pain. The patient wishes to avoid total knee replacement surgery if possible. Allergies No Known Allergies Allergy (Verified 10/04/23 09:38) [facility] Medical History Bilateral knee pain Hearing deficit Dense breast tissue on mammogram Left medial knee pain Irritable bowel syndrome with constipation Depression Dyslipidemia Osteopenia of left femoral neck Acquired hypothyroidism Primary osteoarthritis Surgical History H/O colonoscopy History of arthrodesis History of cataract surgery History of tubal ligation History of appendectomy Family History Father Dysrhythmia CVD (cardiovascular disease) Mother HTN (hypertension) Breast cancer Bladder cancer Mental health disorder Maternal Grandfather Stroke Maternal Grandmother Stroke Paternal Grandfather No problems noted. Paternal Grandmother Liver cancer Social History Housing: House Are you a primary career and transition teacher to a significant other at home: No Do you presently have visiting nurse or other home services: No Alcohol intake: current Alcohol intake frequency: a few times a week Patient Tobacco Use Status: Former Tobacco user Years Smoked: 1 yr e-Cigarette/Vaping Use: Never Used Second Hand Smoke Exposure: No service: No Current occupational status: retired Cognitive needs: No Hearing needs: No Vision needs: Yes Physical Exam Vital Signs: BMI result Body Mass Index 33.1 Const Other: Well-nourished well-developed very friendly female awake alert and oriented x3 in no acute distress Extrem Other: Bilateral lower extremity examination shows good capillary refill, no skin lesions noted, normal sensation light touch Bilateral knee examination shows minimal effusions, palpable crepitus with range of motion, pain with Assessment & Plan Assessment & Plan (1) Arthritis of both knees: Code(s): M17.0 - Bilateral primary osteoarthritis of knee Plan Ms. Mireles presents with bilateral knee pains due to degenerative joint disease. I had a lengthy discussion with the patient regarding the treatment options. She wishes to hold off on surgery for as long possible. I agree with this plan. I will have the patient evaluated by Dr. Nelson from pain management here at [facility] to see whether not the patient is a candidate for a nerve block procedure. The patient will contact me prior to her follow-up appointment in 2 months should any questions or concerns arise. Feel free to call me at any time should questions regarding her orthopedic management arise. I spent 22 minutes in reviewing the patient's records and imaging studies, seeing the patient and documenting in the medical record. Orders: Referrals Pain Management Referral M17.0 - Bilateral primary osteoarthritis of knee Coding Level of Care Code Est Pt Level 2 (19624) Diagnoses Arthritis of both knees M17.0
== END 2023-10-04 09:56 | disposition home or self-care (01) ==
PROVIDERS: PCP Internal Medicine; Visit Provider Orthopaedic Surgery
DX: M17.0 Bilateral primary osteoarthritis of knee (principal)
CPT/HCPCS: 99213

== ENCOUNTER → 2023-10-04 09:30 | Outpatient (BNVA) | payer MEDICARE, SELFPAY | PROVIDERS: PCP Internal Medicine; Visit Provider Orthopaedic Surgery | DX: M17.0 Bilateral primary osteoarthritis of knee (principal) | CPT/HCPCS: 99212 ==

== ENCOUNTER 2023-10-22 09:28 | Outpatient (AMB) | payer MEDICARE, SELFPAY ==
--- NOTE | 2023-10-22 09:33 | A.OFFVIS_ITS ---
Intake Vital Signs 10/22/23 09:35 Height 5 ft 1 in Weight 171 lb BMI 32.3 BP 148/77 H Blood Pressure Location Lt brachial Position Sitting Respiration 12 Pulse 77 Pulse Source Pulse Oximeter Pulse Oximetry (%) 97 Oxygen Delivery Method Room Air Intake Visit Reasons: Juan R OA knees Allergies No Known Allergies Allergy (Verified 10/22/23 09:36) Medication List - Last Reconciled 10/22/23 by Yana Angela LPN alendronate 70 mg PO QWEEK bupropion HCl 300 mg PO DAILY cholecalciferol (vitamin D3) 50 mcg PO DAILY citalopram 20 mg PO DAILY clobetasol 0.05% 1 appl topical DAILY cyclobenzaprine 5 mg PO TID PRN [glucosamin plus msm 500 mg PO DAILY] levothyroxine 50 mcg PO QAM magnesium oxide 500 mg PO DAILY omega-3 fatty acids-fish oil (Fish Oil Extra Strength) 1 cap PO DAILY sennosides (senna) 17.2 mg (2 x 8.6 mg) PO BEDTIME 30 days HPI Juan R OA knees HPI Details 78-year-old female who presents today to the office for an evaluation of bilateral OA of knee. The patient reports knee pain that started six years ago. She denies any numbness or tingling. She states that her left knee will give out several times per day. She has discomfort along the medial aspect of both of her knees. The pain is spread mostly on the lateral aspect of the lower left leg. The pain is worse with any kind of movement, including weight bearing and walking. Weather changes also make it worse. She is unable to sleep normally or exercise. She has tried physical therapy for pain with some relief. She has tried Tylenol and anti-inflammatory medicines which gave her minimal relief. The patient did undergo a left knee Durolane viscosupplementation injection on 08/21/2023 with minimal relief. She has a thomas cyst in her knee, which the identified at the hospital during . Her knee was swollen. She states that Dr. Cardoza deferred draining the cyst due to risk of infection. [facility] Medical History Bilateral knee pain Hearing deficit Dense breast tissue on mammogram Left medial knee pain Irritable bowel syndrome with constipation Depression Dyslipidemia Osteopenia of left femoral neck Acquired hypothyroidism Primary osteoarthritis Surgical History H/O colonoscopy History of arthrodesis History of cataract surgery History of tubal ligation History of appendectomy Family History Father Dysrhythmia CVD (cardiovascular disease) Mother HTN (hypertension) Breast cancer Bladder cancer Mental health disorder Maternal Grandfather Stroke Maternal Grandmother Stroke Paternal Grandfather No problems noted. Paternal Grandmother Liver cancer Social History Housing: House Are you a primary career development coordinator/teacher to a significant other at home: No Do you presently have visiting nurse or other home services: No Alcohol intake: current Alcohol intake frequency: a few times a week Patient Tobacco Use Status: Former Tobacco user Years Smoked: 1 yr e-Cigarette/Vaping Use: Never Used Second Hand Smoke Exposure: No service: No Current occupational status: retired Cognitive needs: No Hearing needs: No Vision needs: Yes Review of Systems Const All systems reviewed & are unremarkable except as noted in HPI and below Physical Exam Vital Signs: Last Vital Signs Pulse 77 10/22/23 09:35 Resp 12 10/22/23 09:35 BP 148/77 H 10/22/23 09:35 Pulse Ox 97 10/22/23 09:35 Oxygen Delivery Method Room Air 10/22/23 09:35 BMI result Body Mass Index 32.3 General: Appears afebrile. Alert and oriented. Mood and affect appropriate. Follows and participates in conversation appropriately. Respiratory effort is unlabored. Able to transition from sit to stand unassisted. Ambulates with bilaterally normal heel strike and toe off. Office Procedures Joint Injection/Drain Joint Injection/Drain Details: Left knee thomas cyst drainage under ultrasound guidance The patient was placed in the prone position and the patient identification and site was confirmed. Ultrasound guidance was utilized to visualize the thomas?s cyst at the posterior aspect of the left knee capsule. A 21-gauge needle was advanced under ultrasound guidance to the proximity of the posterior femoral condyle. 17 mL of clear synovial fluid was aspirated. The needle was removed. Patient tolerated the procedure well. Coding Details: An ultrasound image of the injection was taken and stored in the permanent record. Additional procedure code (CPT) needed Results Reviewed Results Reviewed: 08/09/23: XR KNEE, LEFT FINDINGS: Alignment is normal. No fracture or subluxation. Small joint effusion is evident. Subchondral cystic changes and osteophyte formation of the tibiofemoral and patellofemoral compartments. Patella is well-positioned within the trochlear groove. There is mild narrowing of the knee joint spaces. IMPRESSION: [id number] tricompartmental osteoarthritis and small effusion of the left knee. Assessment & Plan Assessment & Plan (1) Arthritis of both knees: Code(s): M17.0 - Bilateral primary osteoarthritis of knee (2) Left knee pain: Code(s): M25.562 - Pain in left knee Plan The patient is status post left knee thomas cyst drainage, ultrasound guidance. Notable improvement in ambulation immediately post procedure. She will return to clinic in two weeks for trial of left lateral genicular nerve block to see if that helps her lateral leg pain. Discussed the risks and benefits of the procedure with the patient in detail. All questions were answered. The patient is on board with the plan. Justification for interventional therapy: ? Patient with average pain > 6/10 ? Patient has exhausted conservative therapy ? Patient unable to tolerate physical therapy due to pain. . Patient has a good understanding of their pain condition and has appropriate mental and social support Scribed for Dr. Nelson by Shahid Zuniga, nuclear medical technologist, on 10/22/2023. I, Dr. Nelson, have personally reviewed and agree with the information entered by the scribe. Coding Level of Care Code New Pt Level 4 (23127) Diagnoses Arthritis of both knees M17.0 Left knee pain M25.562
[2023-10-22 09:35] VITALS: BP 148/77; PULSE 77; RESP 12; O2SAT 97; BMI 32.3
== END 2023-10-22 10:09 | disposition home or self-care (01) ==
PROVIDERS: PCP Internal Medicine; Visit Provider Internal Medicine
DX: M17.0 Bilateral primary osteoarthritis of knee (principal); M25.562 Pain in left knee; M71.162 Other infective bursitis, left knee
CPT/HCPCS: 20611; 99204

== ENCOUNTER → 2023-10-22 09:28 | Outpatient (BNVA) | payer MEDICARE, SELFPAY | PROVIDERS: PCP Internal Medicine; Visit Provider Internal Medicine | DX: M17.0 Bilateral primary osteoarthritis of knee (principal); M25.562 Pain in left knee | CPT/HCPCS: 20611; 99202 ==

== ENCOUNTER 2023-11-05 09:53 | Outpatient (AMB) | payer MEDICARE, SELFPAY ==
--- NOTE | 2023-11-05 09:55 | A.OFFVIS_ITS ---
Intake Vital Signs 11/05/23 09:57 Height 5 ft 1 in Weight 173 lb BMI 32.7 BP 145/83 H Blood Pressure Location Lt brachial Position Sitting Respiration 12 Pulse 76 Pulse Source Pulse Oximeter Pulse Oximetry (%) 97 Oxygen Delivery Method Room Air Intake Visit Reasons: LEFT LATERAL GNB Allergies No Known Allergies Allergy (Verified 11/05/23 09:58) Medication List - Last Reconciled 11/05/23 by Yana Angela LPN alendronate 70 mg PO QWEEK bupropion HCl XL 300 mg PO DAILY cholecalciferol (vitamin D3) 50 mcg PO DAILY citalopram 20 mg PO DAILY clobetasol 0.05% 1 appl topical DAILY cyclobenzaprine 5 mg PO TID PRN [glucosamin plus msm 500 mg PO DAILY] levothyroxine 50 mcg PO QAM magnesium oxide 500 mg PO DAILY omega-3 fatty acids-fish oil (Fish Oil Extra Strength) 1 cap PO DAILY sennosides (senna) 17.2 mg (2 x 8.6 mg) PO BEDTIME 30 days HPI LEFT LATERAL GNB HPI Details 78-year-old female who presents today to the office for a left lateral GNB. Denies any recent cough, cold, infection, fever or other significant changes in medical history since last office visit. Past procedures 10/22/23: Left knee thomas cyst drainage under ultrasound guidance: % relief. [facility] Medical History Bilateral knee pain Hearing deficit Dense breast tissue on mammogram Left medial knee pain Irritable bowel syndrome with constipation Depression Dyslipidemia Osteopenia of left femoral neck Acquired hypothyroidism Primary osteoarthritis Surgical History H/O colonoscopy History of arthrodesis History of cataract surgery History of tubal ligation History of appendectomy Family History Father Dysrhythmia CVD (cardiovascular disease) Mother HTN (hypertension) Breast cancer Bladder cancer Mental health disorder Maternal Grandfather Stroke Maternal Grandmother Stroke Paternal Grandfather No problems noted. Paternal Grandmother Liver cancer Social History Housing: House Are you a primary childcare provider to a significant other at home: No Do you presently have visiting nurse or other home services: No Alcohol intake: current Alcohol intake frequency: a few times a week Patient Tobacco Use Status: Former Tobacco user Years Smoked: 1 yr e-Cigarette/Vaping Use: Never Used Second Hand Smoke Exposure: No service: No Current occupational status: retired Cognitive needs: No Hearing needs: No Vision needs: Yes Review of Systems Const All systems reviewed & are unremarkable except as noted in HPI and below Physical Exam Vital Signs: Last Vital Signs Pulse 76 11/05/23 09:57 Resp 12 11/05/23 09:57 BP 145/83 H 11/05/23 09:57 Pulse Ox 97 11/05/23 09:57 Oxygen Delivery Method Room Air 11/05/23 09:57 BMI result Body Mass Index 32.7 General: Appears afebrile. Alert and oriented. Mood and affect appropriate. Follows and participates in conversation appropriately. Respiratory effort is unlabored. Able to transition from sit to stand unassisted. Ambulates with bilaterally normal heel strike and toe off. Office Procedures Nerve Block Details: Left lateral infrapatellar genicular nerve block, ultrasound guidance. After obtaining written consent, pre-procedure blood pressure and heart rate were stable and recorded in the nursing record. Standard monitors were applied. The patient was placed supine on the table. The area overlying the peripheral nerves was widely prepped with chloraprep, allowed to dry and sterilely draped. Using ultrasound, the appropriate landmarks were identified. The skin overlying the target was anesthetized with 0.5% lidocaine. A 25 gauge 2.5 inch spinal needle was advanced under ultrasound guidance to the appropriate landmark of each peripheral nerve. Verification using lateral views. Aspiration was negative for heme and synovial fluid. 1 cc of ropivacaine 0.5% was injected around each targeted nerve. The needles were removed, skin cleansed and a sterile bandage was applied. The patient tolerated the procedure well and no complications were encountered. Following the procedure the patient's vital signs were stable. The patient was discharged home in good condition with post-procedural instructions. Time Out: Immediately prior to the procedure, the following was verbally confirmed that there is a signed consent form and that the correct patient, planned procedure, site and side are consistent with documentation and that necessary equipment and/or blood products are available prior to the start of the case. Complications: none EBL: <5 cc An ultrasound image of the injection was taken and stored in the permanent record. [id number] Nerve Block (left lateral, US guided) Procedure code (CPT) selection complete Results Reviewed Results Reviewed: No imaging is available for review. Assessment & Plan Assessment & Plan (1) Left knee pain: Code(s): M25.562 - Pain in left knee Plan It is status post left lateral infrapatellar genicular nerve block for left infrapatellar knee pain. On ultrasound exam today, I noticed a lateral meniscus tear as well as the suprapatellar effusion. Discussed corticosteroid injection, PRP/A2M injection, temporary and permanent nerve stimulation and total knee replacement as potential treatment options. Patient will follow-up in 3 weeks for potential corticosteroid injection since she has not gotten that before. She has previously exhausted hyaluronic acid injection. She will think about trialing PRP but is concerned about the cost. If these are not helpful, we can consider temporary nerve stimulation. Scribed for Dr. Nelson by Shahid Zuniga, medical education manager, on 11/05/2023. I, Dr. Nelson, have personally reviewed and agree with the information entered by the scribe. Orders: Orders PT Evaluation and Treatment Today M25.562 - Pain in left knee Coding Level of Care Code Est Pt Level 3 (64381) Diagnoses Left knee pain M25.562 CPT Codes Nerve Block - Nerve Block: [id number] Nerve Block ([id number])
[2023-11-05 09:57] VITALS: BP 145/83; PULSE 76; RESP 12; O2SAT 97; BMI 32.7
== END 2023-11-05 10:32 | disposition home or self-care (01) ==
PROVIDERS: PCP Internal Medicine; Visit Provider Internal Medicine
DX: M25.562 Pain in left knee (principal)
CPT/HCPCS: 64454

== ENCOUNTER → 2023-11-05 09:53 | Outpatient (BNVA) | payer MEDICARE, SELFPAY | PROVIDERS: PCP Internal Medicine; Visit Provider Internal Medicine | DX: M25.562 Pain in left knee (principal); Z98.1 Arthrodesis status | CPT/HCPCS: 64454; J2795 ==

== ENCOUNTER 2023-11-09 08:03 | Outpatient (REF) | payer MEDICARE, SELFPAY ==
[2023-11-09 11:49] LABS: Free T4 (Free Thyroxine) 0.89 ng/dL (0.71-1.85); Thyroid Stimulating Hormone 1.79 uIU/mL (0.32-4.0)
[2023-11-09 11:55] LABS: Cholesterol 227 mg/dL (<200); HDL Cholesterol 71 mg/dL (>40); LDL Cholesterol Calculated 138 mg/dL (<100); Triglycerides 93 mg/dL (<150)
== END 2023-11-09 08:04 | disposition home or self-care (01) ==
LOC: HO.HMGCLDS 08:03
PROVIDERS: PCP Internal Medicine; Visit Provider Internal Medicine
DX: E03.9 Hypothyroidism, unspecified (principal); E78.5 Hyperlipidemia, unspecified
CPT/HCPCS: 36415; 80061; 84439; 84443

== ENCOUNTER 2023-11-15 09:35 | Outpatient (AMB) | payer MEDICARE, SELFPAY ==
[2023-11-15 09:39] VITALS: BP 130/74; PULSE 74; O2SAT 96; BMI 32.5
--- NOTE | 2023-11-15 09:39 | MHC.PC.OV ---
Vital Signs 11/15/23 09:39 Height 5 ft 1 in Weight 172 lb BMI 32.5 BP 130/74 Blood Pressure Location Lt brachial Position Sitting Pulse 74 Pulse Source Pulse Oximeter Pulse Oximetry (%) 96 Oxygen Delivery Method Room Air Intake Visit Reasons: f/u labs Intake Note: Pt is here today for her f/u labs Allergies No Known Allergies Allergy (Verified 11/15/23 10:00) Medication List - Last Reconciled 11/15/23 by Yvette Shaffer MD alendronate 70 mg PO QWEEK bupropion HCl XL 300 mg PO DAILY cholecalciferol (vitamin D3) 50 mcg PO DAILY citalopram 20 mg PO DAILY clobetasol 0.05% 1 appl topical DAILY [glucosamin plus msm 500 mg PO DAILY] levothyroxine 50 mcg PO QAM magnesium oxide 500 mg PO DAILY omega-3 fatty acids-fish oil (Fish Oil Extra Strength) 1 cap PO DAILY sennosides (senna) 17.2 mg (2 x 8.6 mg) PO BEDTIME 30 days Tobacco use date assessed: 11/15/23 Fall risk assessment: 1 Fall in past year Last assessed Fall Risk: 11/15/23 Dental Screening Dental Screen Date: 11/15/23 Did you have a dental visit in the last 12 months?: Yes Did you have a dental problem in the last 6 months where you did not have access to dental care?: No Was dental information given to patient?: Patient has dentist HPI f/u labs HPI Details 78-year-old lady here today for follow-up on her hyperlipidemia and hypothyroidism. Has been taking her medicines as directed, and has been following recommended diet, stays active, but has not been as regular with doing her walks as she has been in the summertime. Latest fasting labs showed thyroid levels are within normal limits, and LDL cholesterol mildly elevated at 138 mg/dL, unchanged from previous, but HDL and triglycerides are within normal limits. [facility] Medical History Bilateral knee pain Hearing deficit Dense breast tissue on mammogram Left medial knee pain Irritable bowel syndrome with constipation Depression Dyslipidemia Osteopenia of left femoral neck Acquired hypothyroidism Primary osteoarthritis Surgical History H/O colonoscopy History of arthrodesis History of cataract surgery History of tubal ligation History of appendectomy Family History Father Dysrhythmia CVD (cardiovascular disease) Mother HTN (hypertension) Breast cancer Bladder cancer Mental health disorder Maternal Grandfather Stroke Maternal Grandmother Stroke Paternal Grandfather No problems noted. Paternal Grandmother Liver cancer Social History Housing: House Are you a primary healthcare advisory services manager to a significant other at home: No Do you presently have visiting nurse or other home services: No Alcohol intake: current Alcohol intake frequency: a few times a week Patient Tobacco Use Status: Former Tobacco user Years Smoked: 1 yr e-Cigarette/Vaping Use: Never Used Second Hand Smoke Exposure: No service: No Current occupational status: retired Cognitive needs: No Hearing needs: No Vision needs: Yes Questionnaire PHQ-9 Over the last 2 weeks, how often have you been bothered by any of the following problems? 1. Little interest or pleasure in doing things: several days 2. Feeling down, depressed, or hopeless: not at all 3. Trouble falling or staying asleep, or sleeping too much: several days 4. Feeling tired or having little energy: several days 5. Poor appetite or overeating: not at all 6. Feeling bad about yourself - or that you are a failure or have let yourself or your family down: not at all 7. Trouble concentrating on things, such as reading the newspaper or watching television: several days 8. Moving or speaking so slowly that other people could have noticed. Or the opposite - being so fidgety or restless that you have been moving around a lot more than usual: not at all 9. Thoughts that you would be better off or of hurting yourself in some way: not at all Total score: 4 Depression Screening Interpretation: Positive (STABLE AND CONTROLLED ON CITALOPRAM and bupropion, followed by Dr. Ayala Butler) Depression Screening Follow-up: Existing condition, In treatment and Community Mental Health Worker F/U Depression Screening Done: Yes 77827 - PHQ-9 Billing: Yes Source: Developed by Terri Menchaca.W. Conrad, Donte Cannon and colleagues, with an educational simi from [employer]. Thrive Questionnaire Date Thrive assessed: 01/25/22 I am a: Patient What is your living situation today?: I have a steady place to live Within the past 12 months, did the food you bought not last and you didn't have the money to get more?: Never true Within the past 12 months, did you worry whether your food would run out before you got money to buy more?: Never true Do you have trouble paying for medicines?: No Do you have trouble getting transportation to medical appointments?: No Do you have trouble paying your heating and electricity bill?: No Do you have trouble taking care of your child, family member or friend?: No Do you have trouble with day-to-day activities such as bathing, preparing meals, shopping, managing finances, etc.?: No Are you currently unemployed and looking for a job?: No Are you interested in more education?: No THRIVE Score: 0 AUDIT C Alcohol Use Questionnaire (AUDIT-C) 1. How often do you have a drink containing alcohol?: 2-3 times a week 2. How many drinks containing alcohol do you have on a typical day when you are drinking?: 1 or 2 3. How often do you have six or more drinks on one occasion?: Never Total Score: 3 EVELINE-7 AMB Questionnaire EVELINE-7 Date EVELINE - 7 assessed: 11/15/23 Feeling nervous, anxious, or on edge: 1 = Several days Not being able to stop or control worryin = Several days Worrying too much about different things: 1 = Several days Trouble relaxin = Not at all Being so restless that it is hard to sit still: 0 = Not at all Becoming easily annoyed or irritable: 1 = Several days Feeling afraid as if something awful might happen: 0 = Not at all Total EVELINE-7 score (0-4 normal; 5-9 mild; 10-14 moderate; 15-21 severe): 4 Source: Developed by Drs. Rajinder San, Terri Martines, Donte Cannon and colleagues, with an educational simi from [employer]. EVELINE-7 Assessment Billing EVELINE-7 Assessment Tool: EVELINE-7 Assessment 82130 Review of Systems Const Denies fatigue, Denies fever(s), Denies headache(s) and Denies poor appetite Eyes Denies change in vision ENT Reports Normal hearing present, Denies headache(s), Denies nasal congestion and Denies post nasal drip Card Reports no additional complaints Resp Reports no additional complaints GI Denies abdominal pain and Denies heartburn Musc Reports back pain (Occasional) Skin/Breast Denies pruritus, Denies lesions and Denies rash Neuro Reports Normal hearing present, Denies Abnormal speech present and Denies headache(s) Psych Reports no additional complaints Endo Denies fatigue Juan Manuel/Lymph Reports no additional complaints Aller/Immun Reports no additional complaints Physical exam (Primary Care) Vital Signs: Last Vital Signs Pulse 74 11/15/23 09:39 BP 130/74 11/15/23 09:39 Pulse Ox 96 11/15/23 09:39 Oxygen Delivery Method Room Air 11/15/23 09:39 BMI result Body Mass Index 32.5 Tobacco/Smoking Status: Tobacco use Status Tobacco use date assessed 11/15/23 11/15/23 09:42 Patient Tobacco Use Status Former Tobacco user 11/15/23 09:42 e-Cigarette/Vaping Use Never Used 11/15/23 09:42 PHQ-9: PHQ-9 Score PHQ-9: Total score 4 11/15/23 16:35 Depression Screening Interpretation: Positive (STABLE AND CONTROLLED ON CITALOPRAM and bupropion, followed by Dr. Ayala Butler) Depression Screening Follow-up: Existing condition, In treatment and Community Mental Health Worker F/U Thrive Assessment: Date of Thrive Assessment Date Thrive assessed 01/25/22 11/15/23 09:42 Const Other: Alert oriented x3, no acute distress noted Orientation/consciousness: patient oriented x3 [facility] Head: Yes normocephalic and Yes atraumatic Ears: hearing grossly normal bilaterally General nose exam: Normal external nose present Face and sinus: Yes face symmetric Mouth: Normal oral and palatal mucosa present, oropharynx normal and moist mucous membranes Eyes General: appearance normal, both eyes and all related structures Neck Neck: Yes full ROM, Yes no lymphadenopathy and Yes supple Thyroid: Thyroid normal Resp Auscultation: clear to auscultation bilaterally Cardio Other: S1-S2 present regular rate and rhythm GI Palpation (GI): Soft to palpation, nontender, no guarding and no masses Back/Spine/Pelvis Back: No back tenderness Skin General skin exam: no rashes or lesions noted Neuro General: patient oriented x3, gait normal, tone normal, Normal light touch and pain sensation, no focal motor deficits and CN's II-XI intact bilaterally Cranial nerves: Yes Normal hearing present Speech: No Abnormal speech present Extrem General: Yes full ROM, Yes no joint enlargement, Yes no pedal edema and Yes normal gait Psych Appearance: grossly normal Mental Status: mental status grossly normal Speech and movement: Normal speech and movement present Affect: normal affect Attitude: cooperative Thought process: Normal thought process present Results Reviewed Results Reviewed: Name: Thelma Mireles Age/Sex: 78/F : 1945 Unit#: [id number] Attend Dr: Yvette Shaffer MD Re11/09/23 Status: DEP REF Location: [facility] Disch: SPEC : [id number] KIMBERLY: 11/09/23 STATUS: COMP REQ : [id number] RECD: 11/09/23-[address]: Yvette Shaffer MD COMP: 11/09/239 ENTERED: 11/09/23-[address]: ORDERED: Lipid Panel, Free T4, TSH Test Result Flag Reference Triglyceride 93 <150 mg/dL Desirable Triglyceride: less than 150 mg/dL Borderline High Triglyceride 150-199 mg/dL High Triglyceride: 200-499 mg/dL Very High Triglyceride: greater than or equal to 5OO mg/dL Cholesterol 227 H <200 mg/dL Desirable Cholesterol: less than 200 mg/dL Borderline High Cholesterol: 200-239 mg/dL High Cholesterol: greater than 239 mg/dL LDL Calculated 138 H <100 mg/dL Desirable LDL: less than 100 mg/dL Near Optimal/Above Optimal LDL: 110-129 mg/dL Borderline High LDL: 130-159 mg/dL High LDL: 160-189 mg/dL Very High LDL: greater than or equal to 190 mg/dL HDL 71 >40 mg/dL Desirable HDL: greater than 40 mg/dL Note: This HDL assay may give artificially low results in patients with liver disease. Free T4 0.89 0.71-1.85 ng/dL TSH 3rd Gen. 1.79 0.32-4.0 uIU/mL TSH 3rd Generation ([facility]) Assessment and Plan Assessment & Plan (1) Dyslipidemia: Code(s): E78.5 - Hyperlipidemia, unspecified Plan: Continue Treynor 3 fatty acid supplements, reinforced importance of following recommended low-cholesterol diet and getting regular exercise. (2) Acquired hypothyroidism: Code(s): E03.9 - Hypothyroidism, unspecified Plan: Thyroid levels are within normal limits, continue with current dose of levothyroxine 50 mcg daily in am Orders: Orders Lipid Panel 04/29/24 E03.9 - Hypothyroidism, unspecified, E78.5 - Hyperlipidemia, unspecified Thyroid Stimulating Hormone 04/29/24 E03.9 - Hypothyroidism, unspecified, E78.5 - Hyperlipidemia, unspecified Vitamin D 25-OH Total 04/29/24 E03.9 - Hypothyroidism, unspecified, E78.5 - Hyperlipidemia, unspecified Free T4 (Free Thyroxine) 04/29/24 E03.9 - Hypothyroidism, unspecified, E78.5 - Hyperlipidemia, unspecified Coding Level of Care Code Est Pt Level 4 (65802) Diagnoses Dyslipidemia E78.5 Acquired hypothyroidism E03.9 Additional Codes EVELINE-7 Assessment Billing - EVELINE-7 Assessment Tool: EVELINE-7 Assessment 42887 ([id number])
== END 2023-11-15 10:26 | disposition home or self-care (01) ==
PROVIDERS: PCP Internal Medicine; Visit Provider Internal Medicine
DX: E78.5 Hyperlipidemia, unspecified (principal); E03.9 Hypothyroidism, unspecified
CPT/HCPCS: 99214

== ENCOUNTER 2023-11-22 15:35 | Outpatient (AMB) | payer MEDICARE, SELFPAY ==
--- NOTE | 2023-11-22 15:40 | MHC.OFFVIS ---
Vital Signs 11/22/23 15:41 Height 4 ft 11 in Weight 173 lb 8.061 oz BMI 35.0 BP 142/80 H Blood Pressure Location Rt brachial Position Sitting Pulse 72 Pulse Source Pulse Oximeter Pulse Oximetry (%) 98 Oxygen Delivery Method Room Air Intake Visit Reasons: osteoporosis Intake Note: Patient last seen 05/02/23 presents today for follow up. Left knee pain, reports torres's cyst was drained Dr Nelson; plan is to do cortisone injection next week Music Critic Required: No Accompanied by: Self / Same As Patient Allergies No Known Allergies Allergy (Verified 11/22/23 15:45) Medication List - Last Reconciled 11/22/23 by Jeny Hickman MD alendronate 70 mg PO QWEEK bupropion HCl XL 300 mg PO DAILY cholecalciferol (vitamin D3) 50 mcg PO DAILY citalopram 20 mg PO DAILY clobetasol 0.05% 1 appl topical DAILY [glucosamin plus msm 500 mg PO DAILY] levothyroxine 50 mcg PO QAM magnesium oxide 500 mg PO DAILY omega-3 fatty acids-fish oil (Fish Oil Extra Strength) 1 cap PO DAILY sennosides (senna) 17.2 mg (2 x 8.6 mg) PO BEDTIME 30 days HPI Comments Details: 78-year-old female with osteoporosis and generalized osteoarthritis returns for follow-up. She has been taking the alendronate regularly once weekly without side effects. What is bothering her the most is her left knee. She was evaluated by Pain Management and found to have a Torres's cyst, which was drained, the plan is to go for a cortisone injection. This is scheduled soon. She had a fall recently over the last 1-2 months but does not believe she broke any bones. Rarely she would have swelling of her fingers from osteoarthritis, she applies Voltaren gel which helps. Initial history: This is a 77-year-old female with generalized osteoarthritis and osteopenia presents for initial visit. She used to see Dr. Johnson in the past. Patient continues to have pain and stiffness of her fingers. Swelling of her DIPs. She has intermittent pain in her knees and left elbow. She states that she went to occupational therapy for her hands which did help. She has been taking Evista for many years now for osteopenia. She states that she used to take Fosamax before but she stopped due to jaw problems. Her mother was diagnosed with breast cancer in her 80s and 2-3 years later [facility] Medical History Bilateral knee pain Hearing deficit Dense breast tissue on mammogram Left medial knee pain Irritable bowel syndrome with constipation Depression Dyslipidemia Osteopenia of left femoral neck Acquired hypothyroidism Primary osteoarthritis Surgical History H/O colonoscopy History of arthrodesis History of cataract surgery History of tubal ligation History of appendectomy Family History Father Dysrhythmia CVD (cardiovascular disease) Mother HTN (hypertension) Breast cancer Bladder cancer Mental health disorder Maternal Grandfather Stroke Maternal Grandmother Stroke Paternal Grandfather No problems noted. Paternal Grandmother Liver cancer Social History Housing: House Are you a primary manager respiratory care to a significant other at home: No Do you presently have visiting nurse or other home services: No Alcohol intake: current Alcohol intake frequency: a few times a week Patient Tobacco Use Status: Former Tobacco user Years Smoked: 1 yr e-Cigarette/Vaping Use: Never Used Second Hand Smoke Exposure: No service: No Current occupational status: retired Cognitive needs: No Hearing needs: No Vision needs: Yes Review of Systems Musc Reports deformity, Reports arthralgias and Reports joint swelling Physical Exam Vital Signs: Last Vital Signs Pulse 72 11/22/23 15:41 BP 142/80 H 11/22/23 15:41 Pulse Ox 98 11/22/23 15:41 Oxygen Delivery Method Room Air 11/22/23 15:41 BMI result Body Mass Index 35.0 Const General: cooperative, healthy appearing and comfortable Nutritional Appearance: obese Orientation/consciousness: patient oriented x3 Limitations: no limitations HEENT Head: Yes normocephalic and Yes atraumatic Mouth: moist mucous membranes Resp Effort & Inspection: normal respiratory effort and able to speak in complete sentences Neuro General: patient oriented x3 Extrem Other: Significant osteoarthritic changes of both hands with prominent Heberden's nodes that are mildly tender to palpation Normal nailfold capillaroscopy Bilateral knee crepitus Mild left knee warmth and swelling Results Reviewed Results Reviewed: Bilateral knee standing x-rays? 11/2020? Impression no significant bony abnormality Bilateral hand x-ray 02/2022? Mild diffuse osteopenia.? No fracture or malalignment.? Severe left 2nd through the 3rd PIP and right 2nd and 3rd the IP joint space narrowing and osteophytes.? Mild left 5th PIP and right 3rd PIP joint space narrowing and spurring.? No destructive or suspicious bone lesions.? No erosions.? No soft tissue swelling or calcifications Left foot x-ray from 02/2020? 1. Severe 1st MTP joint arthritis 2.Mild calcaneal enthesopathy Right foot x-ray/2019? Fused 1st MTP joint which may be secondary to trauma or advanced osteoarthritis.?? 2. Mild calcaneal enthesopathy Assessment & Plan Assessment & Plan (1) Osteoporosis: Comment: Was on Evista for more than 10 years DEXA 03/2023 Showed worsening T-score at left femoral neck from -2.3 in 2019 07--2.7 L-spine T-score -1.6, unchanged from 2020 Alendronate restarted 04/2023 well-tolerated Code(s): M81.0 - Age-related osteoporosis without current pathological fracture Category: Medical Qualifiers: Osteoporosis type: age-related Presence of current pathological fracture: without current pathological fracture Qualified Code(s): M81.0 - Age-related osteoporosis without current pathological fracture Plan: Patient was diagnosed with osteopenia many years ago. She has started alendronate after last visit. Well-tolerated. Continue with alendronate 70 mg weekly Vitamin-D level at target. Calcium level is normal. Advised patient to consume more dairy products such as fat-free yogurt and fat-free milk Follow-up in 6 months Plan to repeat DEXA alendronate fall of 2024 (2) Osteoarthritis of hands, bilateral: Code(s): M19.041 - Primary osteoarthritis, right hand; M19.042 - Primary osteoarthritis, left hand Category: Medical Qualifiers: Osteoarthritis type: primary Qualified Code(s): M19.041 - Primary osteoarthritis, right hand; M19.042 - Primary osteoarthritis, left hand Plan: Only bothersome every once in a while. Symptoms improve with Voltaren gel Plan I spent 15 minutes reviewing patient's chart, evaluating patient, counseling patient and documenting in the chart Coding Level of Care Code Est Pt Level 3 (32367) Diagnoses Age-related osteoporosis without current pathological fracture M81.0 Osteoporosis type: age-related Presence of current pathological fracture: without current pathological fracture Primary osteoarthritis of both hands M19.041; M19.042 Osteoarthritis type: primary
[2023-11-22 15:41] VITALS: BP 142/80; PULSE 72; O2SAT 98; BMI 35.0
== END 2023-11-22 16:04 | disposition home or self-care (01) ==
PROVIDERS: PCP Internal Medicine; Visit Provider Student in an Organized Health Care Education/Training Program
DX: M81.0 Age-related osteoporosis without current pathological fracture (principal); M19.041 Primary osteoarthritis, right hand; M19.042 Primary osteoarthritis, left hand
CPT/HCPCS: 99213

== ENCOUNTER → 2023-11-22 15:35 | Outpatient (BNVA) | payer MEDICARE, SELFPAY | PROVIDERS: PCP Internal Medicine; Visit Provider Student in an Organized Health Care Education/Training Program | DX: M81.0 Age-related osteoporosis without current pathological fracture (principal); M19.041 Primary osteoarthritis, right hand; M19.042 Primary osteoarthritis, left hand | CPT/HCPCS: 99212 ==

== ENCOUNTER 2023-11-26 10:46 | Outpatient (AMB) | payer MEDICARE, SELFPAY ==
--- NOTE | 2023-11-26 10:50 | A.OFFVIS_ITS ---
Vital Signs 11/26/23 10:52 Height 4 ft 11 in Weight 171 lb BMI 34.5 BP 142/77 H Blood Pressure Location Lt brachial Position Sitting Respiration 14 Pulse 75 Pulse Source Pulse Oximeter Pulse Oximetry (%) 96 Oxygen Delivery Method Room Air Intake Visit Reasons: 3 WEEK FOLLOW UP Allergies No Known Allergies Allergy (Verified 11/26/23 10:54) Medication List - Last Reconciled 11/26/23 by Yana Angela LPN alendronate 70 mg PO QWEEK bupropion HCl XL 300 mg PO DAILY cholecalciferol (vitamin D3) 50 mcg PO DAILY citalopram 20 mg PO DAILY clobetasol 0.05% 1 appl topical DAILY [glucosamin plus msm 500 mg PO DAILY] levothyroxine 50 mcg PO QAM magnesium oxide 500 mg PO DAILY omega-3 fatty acids-fish oil (Fish Oil Extra Strength) 1 cap PO DAILY sennosides (senna) 17.2 mg (2 x 8.6 mg) PO BEDTIME 30 days HPI HPI 3 WEEK FOLLOW UP: Details: 78-year-old female who presents today to the office for a 3-week follow up. The patient reports no relief following the procedure. She is amenable to receiving cortisone injection in her left knee. Denies any recent cough, cold, infection, fever or other significant changes in medical history since last office visit. Past procedures 11/05/23: Left lateral infrapatellar genicular nerve block, ultrasound guidance:no relief. 10/22/23: Left knee thomas cyst drainage under ultrasound guidance: 60% relief for 2-3 weeks [facility] Medical History Bilateral knee pain Hearing deficit Dense breast tissue on mammogram Left medial knee pain Irritable bowel syndrome with constipation Depression Dyslipidemia Osteopenia of left femoral neck Acquired hypothyroidism Primary osteoarthritis Surgical History H/O colonoscopy History of arthrodesis History of cataract surgery History of tubal ligation History of appendectomy Family History Father Dysrhythmia CVD (cardiovascular disease) Mother HTN (hypertension) Breast cancer Bladder cancer Mental health disorder Maternal Grandfather Stroke Maternal Grandmother Stroke Paternal Grandfather No problems noted. Paternal Grandmother Liver cancer Social History Housing: House Are you a primary intensive care medicine specialist to a significant other at home: No Do you presently have visiting nurse or other home services: No Alcohol intake: current Alcohol intake frequency: a few times a week Patient Tobacco Use Status: Former Tobacco user Years Smoked: 1 yr e-Cigarette/Vaping Use: Never Used Second Hand Smoke Exposure: No service: No Current occupational status: retired Cognitive needs: No Hearing needs: No Vision needs: Yes Review of Systems Const All systems reviewed & are unremarkable except as noted in HPI and below Physical Exam Vital Signs: Last Vital Signs Pulse 75 11/26/23 10:52 Resp 14 11/26/23 10:52 BP 142/77 H 11/26/23 10:52 Pulse Ox 96 11/26/23 10:52 Oxygen Delivery Method Room Air 11/26/23 10:52 BMI result Body Mass Index 34.5 General: Appears afebrile. Alert and oriented. Mood and affect appropriate. Follows and participates in conversation appropriately. Respiratory effort is unlabored. Able to transition from sit to stand unassisted. Ambulates with bilaterally normal heel strike and toe off. Office Procedures Joint Injection/Drain Joint Injection/Drain Details: Left Knee aspiration, US guided The patient was placed in the supine position and the patient identification and site was confirmed. Ultrasound guidance was utilized to visualize the fluid collection at the suprapatellar bursa of the left knee capsule. A 21-gauge needle was advanced under ultrasound guidance to the suprapatellar bursa. 9 mL of clear synovial fluid was aspirated. The needle was removed. Patient tolerated the procedure well. Procedure: The patient tolerated the procedure well Coding Details: An ultrasound image of the injection was taken and stored in the permanent record. Additional procedure code (CPT) needed Joint Injection/Drain Joint Injection/Drain Details: Left intraarticular knee injection with Kenalog, ultrasound guided. Primary Site: left knee Prep: site was prepped using aseptic technique and site was prepped using sterile technique Injected: 40 mg of, Kenalog, with 3 mL of, 1% plain lidocaine and in the joint Approach Used: anteromedial Procedure: The patient tolerated the procedure well Coding Details: An ultrasound image of the injection was taken and stored in the permanent record. 04212 - Large joint (Left knee, US guided) Procedure code (CPT) selection complete Results Reviewed Results Reviewed: No imaging is available for review. Assessment & Plan Assessment & Plan (1) Arthritis of both knees: Code(s): M17.0 - Bilateral primary osteoarthritis of knee Category: Medical (2) Left knee pain: Code(s): M25.562 - Pain in left knee Category: Medical Plan Patient is status post left knee aspiration, US guided and left intraarticular knee injection with Kenalog, ultrasound guided. Patient tolerated procedure well and was discharged home in stable condition with discharge instructions. All questions were answered. We will follow-up in two weeks via telephone or in clinic to assess response to therapy. A follow-up appointment was made during today's visit. Scribed for Dr. Nelson by Shahid Zuniga, certified medical coder, on 11/26/2023. I, Dr. Nelson, have personally reviewed and agree with the information entered by the scribe. Coding Level of Care Code Procedure Only Diagnoses Arthritis of both knees M17.0 Left knee pain M25.562 CPT Codes Coding - 17895 Large joint: 10592 - Large joint ([id number])
[2023-11-26 10:52] VITALS: BP 142/77; PULSE 75; RESP 14; O2SAT 96; BMI 34.5
== END 2023-11-26 11:19 | disposition home or self-care (01) ==
PROVIDERS: PCP Internal Medicine; Visit Provider Internal Medicine
DX: M25.562 Pain in left knee (principal)
CPT/HCPCS: 20611

== ENCOUNTER → 2023-11-26 10:46 | Outpatient (BNVA) | payer MEDICARE, SELFPAY | PROVIDERS: PCP Internal Medicine; Visit Provider Internal Medicine | DX: M17.0 Bilateral primary osteoarthritis of knee (principal) | CPT/HCPCS: 20611; J2795; J3301 ==

== ENCOUNTER 2024-01-11 10:58 | Outpatient (AMB) | payer MEDICARE, SELFPAY ==
[2024-01-11 11:10] VITALS: BP 139/72; PULSE 69; RESP 14; O2SAT 98; BMI 34.3
--- NOTE | 2024-01-11 11:10 | A.OFFVIS_ITS ---
Vital Signs 01/11/24 11:10 Height 4 ft 11 in Weight 170 lb BMI 34.3 BP 139/72 Blood Pressure Location Lt brachial Position Sitting Respiration 14 Pulse 69 Pulse Source Pulse Oximeter Pulse Oximetry (%) 98 Oxygen Delivery Method Room Air Intake Visit Reasons: SEVERE LEG PAIN/BUCKLING Allergies No Known Allergies Allergy (Verified 01/11/24 11:14) Medication List - Last Reconciled 01/11/24 by Yana Angela LPN alendronate 70 mg PO QWEEK bupropion HCl XL 300 mg PO DAILY cholecalciferol (vitamin D3) 50 mcg PO DAILY citalopram 20 mg PO DAILY clobetasol 0.05% 1 appl topical DAILY [glucosamin plus msm 500 mg PO DAILY] levothyroxine 50 mcg PO QAM magnesium oxide 500 mg PO DAILY omega-3 fatty acids-fish oil (Fish Oil Extra Strength) 1 cap PO DAILY sennosides (senna) 17.2 mg (2 x 8.6 mg) PO BEDTIME 30 days HPI HPI SEVERE LEG PAIN/BUCKLING : Details: 78-year-old female who presents for an evaluation of severe leg pain and buckling. 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 She reports that still has pain in her knees and has swelling behind her knee and has feeling of tightness. She informed that several days ago while walking, ?her whole leg got buckled up? and reports yesterday it happened only once. She has been taking Extra Strength Tylenol with minimal relief. She has pain in bilateral knees. She has tried warm compression during night with mild relief. She denies any calf pain. She has low back pain but usually experience from sitting to standing position. She reports when she bends down she felt pain. She was diagnosed with osteoporosis. FORMERLY [facility] Medical History Bilateral knee pain Hearing deficit Dense breast tissue on mammogram Left medial knee pain Irritable bowel syndrome with constipation Depression Dyslipidemia Osteopenia of left femoral neck Acquired hypothyroidism Primary osteoarthritis Surgical History H/O colonoscopy History of arthrodesis History of cataract surgery History of tubal ligation History of appendectomy Family History Father Dysrhythmia CVD (cardiovascular disease) Mother HTN (hypertension) Breast cancer Bladder cancer Mental health disorder Maternal Grandfather Stroke Maternal Grandmother Stroke Paternal Grandfather No problems noted. Paternal Grandmother Liver cancer Social History Housing: House Are you a primary health care recruiter to a significant other at home: No Do you presently have visiting nurse or other home services: No Alcohol intake: current Alcohol intake frequency: a few times a week Patient Tobacco Use Status: Former Tobacco user Years Smoked: 1 yr e-Cigarette/Vaping Use: Never Used Second Hand Smoke Exposure: No service: No Current occupational status: retired Cognitive needs: No Hearing needs: No Vision needs: Yes Review of Systems Const All systems reviewed & are unremarkable except as noted in HPI and below Physical Exam Vital Signs: Last Vital Signs Pulse 69 01/11/24 11:10 Resp 14 01/11/24 11:10 BP 139/72 01/11/24 11:10 Pulse Ox 98 01/11/24 11:10 Oxygen Delivery Method Room Air 01/11/24 11:10 BMI result Body Mass Index 34.3 General: Appears afebrile. Alert and oriented. Mood and affect appropriate. Follows and participates in conversation appropriately. Respiratory effort is unlabored. Able to transition from sit to stand unassisted. Assessment & Plan Assessment & Plan (1) Arthritis of both knees: Code(s): M17.0 - Bilateral primary osteoarthritis of knee Category: Medical (2) Torres's cyst: Code(s): M71.20 - Synovial cyst of popliteal space [Torres], unspecified knee Category: Medical Plan Recommend icing, elevation, compression and alternating Tylenol and NSAIDs for Torres's cyst related pain. Patient will return to clinic next month for reconsideration of Torres's cyst aspiration under ultrasound and corticosteroid injection. I will touch base with orthopedics and see if there is any role for arthroscopic surgery for a ruptured/leaking Torres cyst causing pain and discomfort. I recommended obtaining a cane to walk with given her buckling in recent weeks. She will keep an eye on her symptoms to see she feels any sciatica type symptoms or back pain that might merit MR imaging of lumbar spine as a potential source of her left leg buckling. She denies spinal stenosis related back pain or neurogenic claudication symptoms. Scribed for Dr. Nelson by Angelika Seo, medical office receptionist, on 01/11/2024. I, Dr. Nelson, have personally reviewed and agree with the information entered by the scribe Coding Level of Care Code Est Pt Level 4 (06287) Diagnoses Arthritis of both knees M17.0 Torres's cyst M71.20
== END 2024-01-11 11:28 | disposition home or self-care (01) ==
PROVIDERS: PCP Internal Medicine; Visit Provider Internal Medicine
DX: M17.0 Bilateral primary osteoarthritis of knee (principal); M71.20 Synovial cyst of popliteal space [Baker], unspecified knee
CPT/HCPCS: 99213

== ENCOUNTER → 2024-01-11 10:58 | Outpatient (BNVA) | payer MEDICARE, SELFPAY | PROVIDERS: PCP Internal Medicine; Visit Provider Internal Medicine | DX: M17.0 Bilateral primary osteoarthritis of knee (principal); M71.20 Synovial cyst of popliteal space [Baker], unspecified knee | CPT/HCPCS: 99212 ==

== ENCOUNTER 2024-02-15 10:54 | Outpatient (REF) | payer MEDICARE, SELFPAY ==
--- NOTE | ~2024-02-15 | XR_ITS ---
EXAMINATION: XR KNEE AP STANDING CLINICAL INFORMATION: Bilateral knee pain COMPARISON: Left knee x-rays August 09, 2023 TECHNIQUE: AP bilateral standing view of the knees was obtained. FINDINGS: Right knee: No fracture or dislocation. Mild narrowing of the medial and lateral joint spaces. Tiny osteophyte of the medial and lateral joint space is noted. Left knee: No fracture or dislocation. Mild to moderate narrowing of the medial and lateral joint spaces. Small osteophyte of the medial and lateral joint spaces. XR/XR knee standing BI IMPRESSION: Mild degenerative changes of both knees, left greater than right.
== END 2024-02-15 10:55 | disposition home or self-care (01) ==
LOC: HO.XRAY 10:54
PROVIDERS: PCP Internal Medicine; Visit Provider Internal Medicine
DX: M17.0 Bilateral primary osteoarthritis of knee (principal); M71.38 Other bursal cyst, other site
CPT/HCPCS: 73565; 99212

== ENCOUNTER 2024-02-15 10:54 | Outpatient (AMB) | payer MEDICARE, SELFPAY ==
--- NOTE | 2024-02-15 11:12 | A.OFFVIS_ITS ---
Vital Signs 02/15/24 11:14 Height 4 ft 11 in Weight 174 lb BMI 35.1 BP 142/67 H Blood Pressure Location Lt brachial Position Sitting Respiration 14 Pulse 73 Pulse Source Pulse Oximeter Pulse Oximetry (%) 98 Oxygen Delivery Method Room Air Intake Visit Reasons: 1 Month Follow Up Allergies No Known Allergies Allergy (Verified 02/15/24 11:15) Medication List - Last Reconciled 02/15/24 by Yana Angela LPN alendronate 70 mg PO QWEEK bupropion HCl XL 300 mg PO DAILY cholecalciferol (vitamin D3) 50 mcg PO DAILY citalopram 20 mg PO DAILY clobetasol 0.05% 1 appl topical DAILY [glucosamin plus msm 500 mg PO DAILY] levothyroxine 50 mcg PO QAM magnesium oxide 500 mg PO DAILY omega-3 fatty acids-fish oil (Fish Oil Extra Strength) 1 cap PO DAILY sennosides (senna) 17.2 mg (2 x 8.6 mg) PO BEDTIME 30 days HPI HPI 1 Month Follow Up: Details: 79-year-old female who presents today to the office for a 1 month follow up. She reports having pain and swelling in her knee. She has a history of arthritis. Her pain aggravates with walking or climbing the stairs. She states that her brother also has similar symptoms, and he recommended having an x-ray and an MRI scan for further evaluation. She inquired about it. She has a synovial cyst. She is interested in getting a cortisone injection. She is planning to return to physical therapy. She is taking extra-strength Tylenol at bedtime with minimal relief. She is using Voltaren cream for pain relief. She has tried turmeric supplements for a short period of time. She states that her back pain is stable. She has been doing back stretching exercises at home in the morning. She has tried compression stockings in the past, but once she removed them, she noticed itching in her legs.? Past procedures 11/26/23: Left Knee aspiration, US guided: Short term relief 11/26/23: Left intraarticular knee injection with Kenalog, ultrasound guided: Short term relief 11/05/23: Left lateral infrapatellar genicular nerve block, ultrasound guidance: no relief. 10/22/23: Left knee thomas cyst drainage under ultrasound guidance: 60% relief for 2-3 weeks [facility] Medical History Bilateral knee pain Hearing deficit Dense breast tissue on mammogram Left medial knee pain Irritable bowel syndrome with constipation Depression Dyslipidemia Osteopenia of left femoral neck Acquired hypothyroidism Primary osteoarthritis Surgical History H/O colonoscopy History of arthrodesis History of cataract surgery History of tubal ligation History of appendectomy Family History Father Dysrhythmia CVD (cardiovascular disease) Mother HTN (hypertension) Breast cancer Bladder cancer Mental health disorder Maternal Grandfather Stroke Maternal Grandmother Stroke Paternal Grandfather No problems noted. Paternal Grandmother Liver cancer Social History Housing: House Are you a primary critical care clinical nurse specialist to a significant other at home: No Do you presently have visiting nurse or other home services: No Alcohol intake: current Alcohol intake frequency: a few times a week Patient Tobacco Use Status: Former Tobacco user Years Smoked: 1 yr e-Cigarette/Vaping Use: Never Used Second Hand Smoke Exposure: No service: No Current occupational status: retired Cognitive needs: No Hearing needs: No Vision needs: Yes Review of Systems Const All systems reviewed & are unremarkable except as noted in HPI and below Physical Exam Vital Signs: Last Vital Signs Pulse 73 02/15/24 11:14 Resp 14 02/15/24 11:14 BP 142/67 H 02/15/24 11:14 Pulse Ox 98 02/15/24 11:14 Oxygen Delivery Method Room Air 02/15/24 11:14 BMI result Body Mass Index 35.1 General: Appears afebrile. Alert and oriented. Mood and affect appropriate. Follows and participates in conversation appropriately. Respiratory effort is unlabored. Able to transition from sit to stand unassisted. Ambulates with bilaterally normal heel strike and toe off. Results Reviewed Results Reviewed: No imaging is available for review. Assessment & Plan Assessment & Plan (1) Arthritis of both knees: Code(s): M17.0 - Bilateral primary osteoarthritis of knee Category: Medical (2) Left knee pain: Code(s): M25.562 - Pain in left knee Category: Medical Plan Ordered a bilateral x-ray of the knee for further evaluation of the osteoarthritis and cyst in the knee. Recommended trying turmeric/curcumin supplements as a natural anti-inflammatory medication and cotton compression stockings or knee sleeves for aching pain in the calves and knees. We will schedule her for a knee aspiration with dextrose injection/prolotherapy as a next step. If we can reliably achieve obliteration of her synovial cyst, we can then repeat a corticosteroid injection to the knee joint. Discussed the risks and benefits of the procedure with the patient in detail. All questions were answered. The patient is on board with the plan. Justification for interventional therapy: ? Patient with average pain > 6/10 ? Patient has exhausted conservative therapy ? Patient unable to tolerate physical therapy due to pain. . Patient has a good understanding of their pain condition and has appropriate mental and social support Scribed for Dr. Nelson by Shahid Zuniga, medical billing and coding instructor, on 02/15/2024. I, Dr. Nelson, have personally reviewed and agree with the information entered by the scribe. Orders: Orders XR knee standing BI Today M17.0 - Bilateral primary osteoarthritis of knee Coding Level of Care Code Est Pt Level 4 (16222) Diagnoses Arthritis of both knees M17.0 Left knee pain M25.562
[2024-02-15 11:14] VITALS: BP 142/67; PULSE 73; RESP 14; O2SAT 98; BMI 35.1
== END 2024-02-15 11:34 | disposition home or self-care (01) ==
PROVIDERS: PCP Internal Medicine; Visit Provider Internal Medicine
DX: M17.0 Bilateral primary osteoarthritis of knee (principal); M25.562 Pain in left knee
CPT/HCPCS: 99214

== ENCOUNTER 2024-03-05 10:23 | Outpatient (AMB) | payer MEDICARE, SELFPAY ==
[2024-03-05 10:35] VITALS: BP 143/74; PULSE 73; RESP 14; O2SAT 98; BMI 35.1
--- NOTE | 2024-03-05 10:35 | MHC.OFFVIS ---
Vital Signs 03/05/24 10:35 Height 4 ft 11 in Weight 174 lb BMI 35.1 BP 143/74 H Blood Pressure Location Lt brachial Position Sitting Respiration 14 Pulse 73 Pulse Source Pulse Oximeter Pulse Oximetry (%) 98 Oxygen Delivery Method Room Air Intake Visit Reasons: Left Knee aspiration/dextrose inj Allergies No Known Allergies Allergy (Verified 03/05/24 10:36) Medication List - Last Reconciled 03/05/24 by Yana Angela LPN alendronate 70 mg PO QWEEK bupropion HCl XL 300 mg PO DAILY cholecalciferol (vitamin D3) 50 mcg PO DAILY citalopram 20 mg PO DAILY clobetasol 0.05% 1 appl topical DAILY [glucosamin plus msm 500 mg PO DAILY] levothyroxine 50 mcg PO QAM magnesium oxide 500 mg PO DAILY omega-3 fatty acids-fish oil (Fish Oil Extra Strength) 1 cap PO DAILY sennosides (senna) 17.2 mg (2 x 8.6 mg) PO BEDTIME 30 days HPI HPI Left Knee aspiration/dextrose inj: Details: 79-year-old female who presents today to the office for left knee aspiration/dextrose injection. She reports her pain has improved. She has been taking turmeric and curcumin supplements with good benefit. She did attend physical therapy sessions and was instructed to use cane for ambulation. She has been practicing chair yoga at the [facility]. She is inquiring about x-ray results and wondering if she needs to undergo knee replacement. She is taking Fosamax for osteoporosis. Past procedures 11/26/23: Left Knee aspiration, US guided: Short term relief 11/26/23: Left intraarticular knee injection with Kenalog, ultrasound guided: Short term relief 11/05/23: Left lateral infrapatellar genicular nerve block, ultrasound guidance: no relief. 10/22/23: Left knee thomas cyst drainage under ultrasound guidance: 60% relief for 2-3 weeks [facility] Medical History Bilateral knee pain Hearing deficit Dense breast tissue on mammogram Left medial knee pain Irritable bowel syndrome with constipation Depression Dyslipidemia Osteopenia of left femoral neck Acquired hypothyroidism Primary osteoarthritis Surgical History H/O colonoscopy History of arthrodesis History of cataract surgery History of tubal ligation History of appendectomy Family History Father Dysrhythmia CVD (cardiovascular disease) Mother HTN (hypertension) Breast cancer Bladder cancer Mental health disorder Maternal Grandfather Stroke Maternal Grandmother Stroke Paternal Grandfather No problems noted. Paternal Grandmother Liver cancer Social History Housing: House Are you a primary career services representative to a significant other at home: No Do you presently have visiting nurse or other home services: No Alcohol intake: current Alcohol intake frequency: a few times a week Patient Tobacco Use Status: Former Tobacco user Years Smoked: 1 yr e-Cigarette/Vaping Use: Never Used Second Hand Smoke Exposure: No service: No Current occupational status: retired Cognitive needs: No Hearing needs: No Vision needs: Yes Physical Exam Vital Signs: Last Vital Signs Pulse 73 03/05/24 10:35 Resp 14 03/05/24 10:35 BP 143/74 H 03/05/24 10:35 Pulse Ox 98 03/05/24 10:35 Oxygen Delivery Method Room Air 03/05/24 10:35 BMI result Body Mass Index 35.1 General: Appears afebrile. Alert and oriented. Mood and affect appropriate. Follows and participates in conversation appropriately. Respiratory effort is unlabored. Able to transition from sit to stand unassisted. Ambulates with bilaterally normal heel strike and toe off. Office Procedures Joint Injection/Aspiration Joint Injection/Aspiration Details: Left Knee Aspiration and Prolotherapy/Injection 25% Dextrose, US guided After obtaining written consent, pre-procedure blood pressure and heart rate were stable and recorded in the nursing record. The patient was placed in the supine position and the patient identification and site was confirmed. The target area was widely prepped with chloraprep, allowed to dry. Ultrasound guidance was utilized to visualize the fluid collection at the suprapatellar bursa of the left knee capsule. A 21-gauge needle was advanced under ultrasound guidance to the suprapatellar bursa. 10 mL of clear synovial fluid was aspirated. Following aspiration, 10 ml of 25% dextrose solution was injected on the left side at the suprapatellar bursa. The needles were removed, skin cleansed and a sterile bandage was applied. The patient tolerated the procedure well and no complications were encountered. Following the procedure the patient's vital signs and knee strength were stable. The patient was discharged home in good condition with post-procedural instructions. Time Out: Immediately prior to the procedure, the following was verbally confirmed that there is a signed consent form and that the correct patient, planned procedure, site and side are consistent with documentation and that necessary equipment and/or blood products are available prior to the start of the case. Complications: none EBL: <1 cc Coding 61981 - Large joint Procedure code (CPT) selection complete Results Reviewed Results Reviewed: Date: 08/09/23 EXAMINATION: XR KNEE, LEFT Diffuse demineralization FINDINGS: Alignment is normal. No fracture or subluxation. Small joint effusion is evident. Subchondral cystic changes and osteophyte formation of the tibiofemoral and patellofemoral compartments. Patella is well-positioned within the trochlear groove. There is mild narrowing of the knee joint spaces. IMPRESSION: [id number] tricompartmental osteoarthritis and small effusion of the left knee. Assessment & Plan Assessment & Plan (1) Arthritis of both knees: Code(s): M17.0 - Bilateral primary osteoarthritis of knee Category: Medical (2) Left knee pain: Code(s): M25.562 - Pain in left knee Category: Medical Plan Patient is status post left knee aspiration and 10ml 25% dextrose solution injection, US guided. Patient tolerated procedure well and was discharged home in stable condition with discharge instructions. All questions were answered. Reviewed x-ray results with the patient in detail. Follow up in 1 month to assess the response. Scribed for Dr. Nelson by Glenna biomedical manager, on 03/05/2024. I, Dr. Nelson, have personally reviewed and agree with the information entered by the scribe. Coding Level of Care Code Est Pt Level 4 (76813) Diagnoses Arthritis of both knees M17.0 Left knee pain M25.562 CPT Codes Coding - 57936 Large joint: 64222 - Large joint ([id number])
== END 2024-03-05 10:56 | disposition home or self-care (01) ==
PROVIDERS: PCP Internal Medicine; Visit Provider Internal Medicine
DX: M17.0 Bilateral primary osteoarthritis of knee (principal); M25.562 Pain in left knee
CPT/HCPCS: 20611

== ENCOUNTER → 2024-03-05 10:23 | Outpatient (BNVA) | payer MEDICARE, SELFPAY | PROVIDERS: PCP Internal Medicine; Visit Provider Internal Medicine | DX: M17.0 Bilateral primary osteoarthritis of knee (principal); M25.562 Pain in left knee | CPT/HCPCS: 20611 ==

== ENCOUNTER → 2024-03-07 11:15 | Outpatient (BNV) | payer MEDICARE, SELFPAY | PROVIDERS: PCP Internal Medicine; Visit Provider Radiology Diagnostic Radiology | DX: Z12.31 Encounter for screening mammogram for malignant neoplasm of breast (principal) | CPT/HCPCS: 77063; 77067 ==

== ENCOUNTER 2024-03-07 11:17 | Outpatient (REF) | payer MEDICARE, SELFPAY ==
--- NOTE | ~2024-03-07 | MM_ITS ---
EXAMINATION: MM SCREENING DIGITAL BREAST TOMOSYNTHESIS, BILATERAL CLINICAL INFORMATION: Screening. Asymptomatic. COMPARISON: Mammography: This study is compared with prior exams dating back to 2019. TECHNIQUE: Digital breast tomosynthesis is performed in both the craniocaudal and mediolateral oblique views along with computer-aided detection (CAD). Direct 2-D images of each breast in the standard screening projections are also obtained. FINDINGS: The breasts are heterogeneously dense, which may obscure small masses (ACR BI-RADS breast composition Category c). There are no significant masses, abnormal calcifications, or other abnormalities. MM/MM tomosynthesis screening BI IMPRESSION: No mammographic evidence of malignancy. ASSESSMENT: BI-RADS BI-RADS 1 - Negative RECOMMENDATION: Routine annual mammography screening. 1 year F/U This examination should not preclude the clinical evaluation of a suspicious palpable abnormality. This patient's information was entered into a reminder system with a target due date for their next mammogram. Electronically signed by: Funmi Johnston MD 04/03/2024 12:13 PM EDT
== END 2024-03-07 11:18 | disposition home or self-care (01) ==
LOC: HO.MAMMO 11:17
PROVIDERS: PCP Internal Medicine; Visit Provider Internal Medicine
DX: Z12.31 Encounter for screening mammogram for malignant neoplasm of breast (principal)
CPT/HCPCS: 77063; 77067

== ENCOUNTER 2024-04-14 13:23 | Outpatient (AMB) | payer MEDICARE, SELFPAY ==
[2024-04-14 13:30] VITALS: BP 134/74; PULSE 68; TEMP 36.7; O2SAT 99
--- NOTE | 2024-04-14 13:30 | AM.OFFWIN_ITS ---
Intake Vital Signs 04/14/24 13:30 Height 4 ft 11 in BMI Reason not done Patient refused/unable BP 134/74 Blood Pressure Location Rt brachial Position Sitting Pulse 68 Pulse Source Pulse Oximeter Temp 98.1 F Temp Source Oral Pulse Oximetry (%) 99 Oxygen Delivery Method Room Air Intake Visit Reasons: EP Dizzy, clammy, low BP @ PT 104/80 Intake Note: pt c/o dizziness, clammy, low BP at PT. Normalized (134/74) now. Started this morning getting out of bed Patient Tobacco Use Status: Former Tobacco user Allergies No Known Allergies Allergy (Verified 04/14/24 16:18) Do you need a note to return to daycare/school/sports/work: No HPI HPI Comments History of Present Illness Details Patient is an 79-year-old female complaining of feeling clammy, dizzy and nauseous since this morning. 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 She states that since she has been here, she has burped a couple of times and that made her feel a little less nauseous. She denies any chest pain or sob. She tells me her father did have a blockage and was stented at age 70 however passed shortly thereafter. [facility] Medical History Bilateral knee pain Hearing deficit Dense breast tissue on mammogram Left medial knee pain Irritable bowel syndrome with constipation Depression Dyslipidemia Osteopenia of left femoral neck Acquired hypothyroidism Primary osteoarthritis Surgical History H/O colonoscopy History of arthrodesis History of cataract surgery History of tubal ligation History of appendectomy Family History Father Dysrhythmia CVD (cardiovascular disease) Mother HTN (hypertension) Breast cancer Bladder cancer Mental health disorder Maternal Grandfather Stroke Maternal Grandmother Stroke Paternal Grandfather No problems noted. Paternal Grandmother Liver cancer Social History Housing: House Are you a primary patient care assistant to a significant other at home: No Do you presently have visiting nurse or other home services: No Alcohol intake: current Alcohol intake frequency: holidays/special occasions only Patient Tobacco Use Status: Former Tobacco user Years Smoked: 1 yr e-Cigarette/Vaping Use: Never Used Second Hand Smoke Exposure: No Advance Directives Date on File: 11/15/23 service: No Current occupational status: retired Cognitive needs: No Hearing needs: No Vision needs: Yes Review of Systems Const All systems reviewed & are unremarkable except as noted in HPI and below Physical Exam Vital Signs: Last Vital Signs Temp 98.1 F 04/14/24 13:30 Pulse 68 04/14/24 13:30 BP 134/74 04/14/24 13:30 Pulse Ox 99 04/14/24 13:30 Oxygen Delivery Method Room Air 04/14/24 13:30 Const General: cooperative, comfortable, no acute distress, well developed and diaphoretic (slightly) Orientation/consciousness: patient oriented x3 Limitations: wheelchair (2/2 dizzyness ) HEENT Head: Yes normal to inspection, Yes normocephalic and Yes atraumatic Ears: hearing grossly normal bilaterally, TM's normal bilaterally and EAC's normal General nose exam: Normal external nose present Face and sinus: Yes normal facial exam Eyes General: appearance normal, both eyes and all related structures Neck Neck: Yes normal visual inspection and Yes full ROM Resp Effort & Inspection: normal respiratory effort and able to speak in complete sentences Auscultation: clear to auscultation bilaterally Cardio Rate: bradycardic (58) Rhythm: regular rhythm Heart sounds: normal S1 and S2 Skin General skin exam: no rashes or lesions noted Neuro General: patient oriented x3 Extrem General: Yes normal to inspection Office Procedures EKG [id number], Complete Assessment & Plan Assessment & Plan (1) Dizzy: Code(s): R42 - Dizziness and giddiness Plan: Orthostatics are negative, physical exam unremarkable however with the patient's constellation of symptoms and EKG showed sinus bradycardia @59BPM with a nonspecific ST abnormality, LVH, possible left atrial enlargement, we will send to emergency room for further workup. Her is comfortable driving her, called head to [facility] ED. found a [facility] EKG from 07/27/2015, sent that and today's EKG via [employer] to the PA at the emergency department. Plan see above Coding Level of Care Code Est Pt Level 5 (50770) Diagnoses Dizzy R42 CPT Codes EKG - CPT: 65454-[id number], Complete ([id number])
== END 2024-04-14 14:38 | disposition home or self-care (01) ==
PROVIDERS: PCP Internal Medicine; Visit Provider Physician Assistant
DX: R42 Dizziness and giddiness (principal)

== ENCOUNTER → 2024-04-14 13:23 | Outpatient (BNVA) | payer MEDICARE, SELFPAY | PROVIDERS: PCP Internal Medicine; Visit Provider Internal Medicine | DX: R42 Dizziness and giddiness (principal) | CPT/HCPCS: 93005 ==

== ENCOUNTER 2024-04-14 15:33 | Emergency (ER) | payer MEDICARE, SELFPAY ==
--- NOTE | ~2024-04-14 | CT_ITS ---
EXAMINATION: CT HEAD WITHOUT CONTRAST CLINICAL INFORMATION: Vertigo. COMPARISON: None available. TECHNIQUE: Contiguous axial imaging was performed from the skull base to vertex without intravenous administration of contrast. This CT examination was performed using dose optimization techniques as appropriate, variously including the following: *Automated exposure control *Adjustment of mA and/or kV according to patient size (this includes techniques or standardized protocols for targeted exams where dose is matched to indication/reason for exam; i.e. extremities or head) *Use of iterative reconstruction technique DLP: 684 mGy-cm FINDINGS: There is mild cerebral volume loss with prominence of the lateral, third and fourth ventricles. The cortical sulci are widened appropriately. The fourth ventricle and basal cisterns are normally outlined. There is mild bilateral periventricular and central white matter diminished attenuation. There is no acute territorial defects, hemorrhage or midline shift. The extra-axial spaces are unremarkable. Calvarium/scalp: Intact. Maxillofacial sinuses and mastoids: Clear as visualized. CT/CT head/brain wo IV con IMPRESSION: 1. No acute intracranial process seen. 2. Mild cerebral volume loss with chronic small vessel ischemic changes. Electronically signed by: Jorge Wilson MD 04/14/2024 11:21 PM EDT
--- NOTE | 2024-04-14 15:53 | ECG_ITS ---
Test Reason : Dizziness Blood Pressure : / mmHG Vent. Rate : 072 BPM Atrial Rate : 072 BPM P-R Int : 162 ms QRS Dur : 084 ms QT Int : 434 ms P-R-T Axes : 046 -01 -27 degrees QTc Int : 475 ms Normal sinus rhythm Minimal voltage criteria for LVH, may be normal variant ( R in aVL ) Nonspecific T wave abnormality Abnormal ECG No previous ECGs available Referred By: Kaylynn De La Fuente Electronically Signed By:HUEY WEBER
[2024-04-14 16:15] VITALS: BP 134/77; PULSE 74; RESP 20; TEMP 37; O2SAT 98; BMI 32.3
--- NOTE | 2024-04-14 16:17 | ED_ITS ---
HPI - Dizziness General Chief Complaint: Dizziness Stated Complaint: seen in [place] location told to come to ER dizzy Time Seen by Provider: 04/14/24 21:01 Source: patient and family Mode of arrival: ambulatory Limitations: no limitations History of Present Illness ED Provider: Dr. Moctezuma HPI Narrative: This morning patient had a moment of looking outside and noticing that things were spinning. Later in the day she went for PT and felt dizzy again, they then sent her to the walk in but she remained dizzy. No prior history of vertigo MD elicited complaint: dizziness Onset (ago): hour(s) Timing: sudden onset Severity: mild Description: sense of movement and room spinning Related Data Home Medications ?Medication ?Instructions ?Recorded ?Confirmed cholecalciferol (vitamin D3) 50 50 mcg PO DAILY 09/13/21 03/05/24 mcg (2,000 unit) capsule glucosamin plus msm 500 mg PO DAILY 12/12/22 03/05/24 omega-3 fatty acids-fish oil [Fish 1 cap PO DAILY 12/12/22 03/05/24 Oil Extra Strength] magnesium oxide 500 mg PO DAILY 05/14/23 03/05/24 bupropion HCl 300 mg 24 hr tablet, 300 mg PO DAILY 10/22/23 03/05/24 extended release clobetasol 0.05 % topical gel 1 appl topical DAILY PRN 04/14/24 diclofenac sodium 1 % topical gel 2 g topical QID PRN 04/14/24 (Aleve (diclofenac)) Previous Rx's ?Medication ?Instructions ?Recorded sennosides 8.6 mg capsule (senna) 17.2 mg (2 x 8.6 mg) PO BEDTIME 09/13/21 constipation 30 days #60 caps alendronate 70 mg tablet 70 mg PO QWEEK #12 tabs 10/01/23 citalopram 20 mg tablet 20 mg PO DAILY #90 tabs 11/25/23 levothyroxine 50 mcg tablet 50 mcg PO QAM #90 tabs 02/06/24 meclizine 25 mg tablet 25 mg PO QID #20 tabs 04/14/24 Allergies Allergy/AdvReac Type Severity Reaction Status Date / Time No Known Allergies Allergy Verified 04/14/24 16:18 Review of Systems 2 Review of Systems: Yes all other systems are reviewed and are negative Neurologic: Denies Sensory deficit (Neuro) PMFSH Past Medical History Medical History Bilateral knee pain Hearing deficit Dense breast tissue on mammogram Left medial knee pain Irritable bowel syndrome with constipation Depression Dyslipidemia Osteopenia of left femoral neck Acquired hypothyroidism Primary osteoarthritis Surgical History H/O colonoscopy History of arthrodesis History of cataract surgery History of tubal ligation History of appendectomy Family History Family History Father Dysrhythmia CVD (cardiovascular disease) Mother HTN (hypertension) Breast cancer Bladder cancer Mental health disorder Maternal Grandfather Stroke Maternal Grandmother Stroke Paternal Grandfather No problems noted. Paternal Grandmother Liver cancer Social History Social History Housing: House Are you a primary hearing healthcare practitioner to a significant other at home: No Do you presently have visiting nurse or other home services: No Alcohol intake: current Alcohol intake frequency: holidays/special occasions only Patient Tobacco Use Status: Former Tobacco user Years Smoked: 1 yr Smoked in Last 30 Days: No e-Cigarette/Vaping Use: Never Used Second Hand Smoke Exposure: No Use of substances other than those prescribed or required for medical reasons: No Advance Directives: Yes Advance Directives on File: Yes Advance Directives Date on File: 11/15/23 Do you have a plan to hurt others: No Plan service: No Current occupational status: retired Cognitive needs: No Hearing needs: No Vision needs: Yes Physical Exam 2 Vital Signs: Vital Signs: Last Vital Signs Temp 97.8 F 04/14/24 22:54 Pulse 63 04/14/24 22:54 Resp 14 04/14/24 22:54 BP 180/87 H 04/14/24 22:54 Pulse Ox 99 04/14/24 22:54 O2 Del Method Room Air 04/14/24 22:54 BMI result Body Mass Index 32.3 Const: General: healthy appearing Nutritional Appearance: average body habitus Orientation/consciousness: oriented to person and patient oriented x3 Limitations: no limitations HEENT: Head: Yes normal to inspection Ears: external ears normal General nose exam: Normal external nose present Mouth: Normal oral and palatal mucosa present and oropharynx normal Throat: Yes posterior oropharynx normal Eyes: General: appearance normal, both eyes and all related structures Neck: Other: supple Neck: Yes normal visual inspection Chest: Chest palpation & inspection: normal inspection of the chest Resp: Auscultation: clear to auscultation bilaterally Cardio: Jugular venous distension: no JVD Rate: regular rate Rhythm: r egular rhythm Heart sounds: S1 normal heart sound present and S2 normal heart sound present GI: Inspection: Yes normal to inspection Palpation (GI): Soft to palpation, nontender and No hepatosplenomegaly present Auscultation: normal bowel sounds : General: Yes no CVA tenderness Back/Spine/Pelvis: Back: no CVA tenderness Skin: General skin exam: no rashes or lesions noted Neuro: Other: patient with nystagmus to the right with Barrone Maneuver. General: oriented to person and patient oriented x3 Cranial nerves: Yes CN's II-XII intact bilaterally Motor exam (neuro): 5/5 motor strength present throughout Sensory Exam: No Sensory deficit (Neuro) Extrem: General: Yes normal to inspection Psych: Appearance: grossly normal Course Course Course Narrative: This is a Rapid Medical Examination (RME) performed by Lara De La Fuente PA-C in triage. Full HPI, ROS, assessment and treatment plan per primary provider in the Main ED. 79 yo female hx of hypothyrdoidism here for eval of dizziness on waking this morning. reports feeling light headed when she stood out of bed this morning. went back to bed, was able to then get up, make her coffee and go to her PT appointment for her right knee thomas's cyst. Dizziness continued, prompting her to go across the street to the walk in clinic. she was noted to be bradycardic - sent here for further eval. denies headche, vision changes, chest pain, sob, palpitations. + vitals stable. not bradycardic. patient well appearing. no focal neuro deficits. using wheelchair to ambulate. Plan: labs, ekg, ortho vitals Reevaluation(s) Reevaluation #1: patient with BPV on the right will give meclizine and dc home Time: 23:38 Medications Administered Discontinued Medications Generic Name Dose Route Start Last Admin Trade Name Freq PRN Reason Stop Dose Admin Meclizine HCl 50 mg 04/14/24 21:21 04/14/24 21:45 Meclizine Hcl 25 Mg Tablet PO 04/14/24 21:22 50 mg ONCE ONE Administration Meclizine HCl 50 mg 04/14/24 22:08 04/14/24 22:43 Meclizine Hcl 25 Mg Tablet PO 04/14/24 22:09 50 mg ONCE ONE Administration Ondansetron HCl 4 mg 04/14/24 22:08 04/14/24 22:18 Ondansetron Odt 4 Mg Tab.Rapdis TRANSLINGU 04/14/24 22:09 4 mg ONCE ONE Administration Medical Decision Making Differential Diagnosis Differential Diagnoses: The differential diagnosis associated with the presentation includes (CVA, brain tumor, vertigo, BPV ) Admission/Observation Consideration of admission/observation: Escalation of care including admission/observation considered (upon arrival admission was considered) Lab Data Will not treat UA as patient has no symptoms 04/14/24 17:23 04/14/24 17:23 Labs: Lab Results 04/14/24 04/14/24 Range/Units 17:23 22:18 WBC 9.2 (4.8-10.8) X10*3/uL RBC 4.52 (4.20-5.50) X10*6/uL Hgb 13.4 (12.0-16.0) g/dl Hct 39.8 (37.0-47.0) % MCV 88.1 (80.0-98.0) fL MCH 29.6 (27.0-33.0) pg MCHC 33.7 (31.0-35.0) g/dl RDW 13.0 (11.0-16.0) % Plt Count 311 (160-400) X10*3/uL MPV 10.0 (9.4-12.3) fL Immature Gran % (Auto) 0.3 (0.0-0.4) % Neut % (Auto) 71.7 (45-73) % Lymph % (Auto) 19.4 L (20-40) % Powell % (Auto) 6.7 (2-11) % Eos % (Auto) 1.4 (0-4) % Baso % (Auto) 0.5 (0-2) % Lymph # (Auto) 1.8 (1.2-4.9) X10*3/uL Powell # (Auto) 0.6 (0.1-1.2) X10*3/uL Eos # (Auto) 0.1 (0.0-0.4) X10*3/uL Baso # (Auto) 0.1 (0.0-0.2) X10*3/uL Abs Immat Gran (auto) 0.03 (0.00-0.03) X10*3/uL Absolute Neuts (auto) 6.6 (2.0-8.3) x10*3/uL Absolute Nucleated RBC 0.000 (0.0-0.012) X10*3/uL Nucleated RBC % (auto) 0.0 (0.0-0.2) /100WBC PT 12.2 (11.1-13.3) SEC INR 1.0 (0.9-1.1) Sodium 141 (135-145) mmol/L Potassium 3.7 (3.3-5.1) mmol/L Chloride 104 (96-108) mmol/L Carbon Dioxide 26 (22-29) mmol/L Anion Gap 15 (12-20) BUN 27 H (9-16) mg/dL Creatinine 0.83 (0.5-1.4) mg/dL Estim Creat Clear Calc 46.8 Estimated GFR > 60 Random Glucose 117 H (60-115) mg/dL Calcium 10.2 D (8.4-10.2) mg/dL Magnesium 2.2 (1.6-2.6) mg/dL Total Bilirubin 0.3 (0.0-1.0) mg/dL AST 15 (5-31) U/L ALT 22 (0-31) U/L Alkaline Phosphatase 54 (39-117) U/L Troponin I High Sens < 2.7 (<3.5-17.0) ng/L Total Protein 7.1 (6.5-8.0) g/dL Albumin 4.1 (3.5-5.0) g/dL TSH 0.97 (0.32-4.0) uIU/mL Urine Color Yellow Urine Appearance Clear Urine pH 7.0 (5.0-9.0) Ur Specific [place] 1.020 (1.005-1.025) Urine Protein Negative (Neg-Trace) mg/dL Urine Glucose (UA) Negative (Negative) mg/dL Urine Ketones Negative (Negative) mg/dL Urine Blood Negative (Negative) Urine Nitrite Negative (Negative) Ur Leukocyte Esterase Moderate (2+) H (Negative) Urine RBC 0-2 (0-2) /HPF Urine WBC 11-20 H (0-5) /HPF Ur Squamous Epith Cells 0-2 (0-2) /HPF Urine Bacteria None Seen (None Seen) Hyaline Casts 0-2 (0-2) /LPF Independent Interpretation I performed an independent interpretation of an: EKG (sinus 72, no st or twave changes) and CT Scan (Brain: no mass, atrophy, no bleed) Independent Historian Clinical information obtained from an independent historian. History obtained from or confirmed by: Spouse Tests considered The following testing was considered but not selected: MRI of brain considered but patient is nonfocal and appears to be having BPV Prescription Management I considered prescription management with: Antibiotic (will not treat UA at this time as patient has no symptoms) Discharge Plan Discharge Clinical Impression: Benign paroxysmal positional vertigo Patient Disposition: Home, Self-Care Instructions: Vertigo (ED), Benign Paroxysmal Positional Vertigo (ED) Prescriptions: New meclizine 25 mg tablet 25 mg PO QID Qty: 20 0RF No Action alendronate 70 mg tablet 70 mg PO QWEEK Qty: 12 3RF citalopram 20 mg tablet 20 mg PO DAILY Qty: 90 3RF levothyroxine 50 mcg tablet 50 mcg PO QAM Qty: 90 3RF magnesium oxide 500 mg tablet 500 mg PO DAILY omega-3 fatty acids-fish oil [Fish Oil Extra Strength] 1 cap PO DAILY glucosamin plus msm 500 mg PO DAILY cholecalciferol (vitamin D3) 50 mcg (2,000 unit) capsule 50 mcg PO DAILY senna 8.6 mg capsule 17.2 mg PO BEDTIME 30 Days Qty: 60 6RF bupropion HCl 300 mg tablet extended release 24 hr 300 mg PO DAILY clobetasol 0.05 % gel 1 appl topical DAILY PRN diclofenac sodium [Aleve (diclofenac)] 1 % gel 2 g topical QID PRN Rx Instructions: apply to single elbow, wrist or hand; for hand includes palm/fingers/back of hand Print Language: French
[2024-04-14 17:27] LABS: MANUAL DIFF FLAG NO
[2024-04-14 17:33] LABS: Prothrombin Time 12.2 SEC (11.1-13.3)
[2024-04-14 17:39] LABS: Basophils Absolute Auto 0.1 X10*3/uL (0.0-0.2); Basophils Percent Auto 0.5 % (0-2); Eosinophils Absolute Auto 0.1 X10*3/uL (0.0-0.4); Eosinophils Percent Auto 1.4 % (0-4); Hematocrit 39.8 % (37.0-47.0); Hemoglobin 13.4 g/dl (12.0-16.0); Imm Gran Abs Auto 0.03 X10*3/uL (0.00-0.03); Imm Gran Pct Auto 0.3 % (0.0-0.4); Lymphocytes Absolute Auto 1.8 X10*3/uL (1.2-4.9); Lymphocytes Percent Auto 19.4 % (20-40); Mean Corpuscular HGB Conc 33.7 g/dl (31.0-35.0); Mean Corpuscular Hemoglobin 29.6 pg (27.0-33.0); Mean Corpuscular Volume 88.1 fL (80.0-98.0); Monocytes Absolute Auto 0.6 X10*3/uL (0.1-1.2); Monocytes Percent Auto 6.7 % (2-11); Neutrophils Absolute Auto 6.6 x10*3/uL (2.0-8.3); Neutrophils Percent Auto 71.7 % (45-73); Platelet Count 311 X10*3/uL (160-400); Red Blood Count 4.52 X10*6/uL (4.20-5.50); White Blood Count 9.2 X10*3/uL (4.8-10.8)
[2024-04-14 17:48] LABS: Alanine Aminotransferase 22 U/L (0-31); Albumin Level 4.1 g/dL (3.5-5.0); Alkaline Phosphatase 54 U/L (39-117); Anion Gap 15 (12-20); Aspartate Amino Transferase 15 U/L (5-31); Bilirubin Total 0.3 mg/dL (0.0-1.0); Blood Urea Nitrogen 27 mg/dL (9-16); Calcium 10.2 mg/dL (8.4-10.2); Carbon Dioxide 26 mmol/L (22-29); Chloride 104 mmol/L (96-108); Creatinine Clr Calc Pharmacy 46.8; Estimated Glomerular Filt Rate > 60; Glucose Random 117 mg/dL (60-115); Magnesium 2.2 mg/dL (1.6-2.6); Potassium 3.7 mmol/L (3.3-5.1); Sodium 141 mmol/L (135-145); Total Protein 7.1 g/dL (6.5-8.0)
[2024-04-14 17:59] LABS: Troponin-I High Sensitivity < 2.7 ng/L (<3.5-17.0)
[2024-04-14 19:37] VITALS: BP 167/75; PULSE 70
[2024-04-14 19:38] VITALS: BP 173/84; PULSE 71
[2024-04-14 19:39] VITALS: BP 169/92; PULSE 74
[2024-04-14 19:43] VITALS: BP 167/75; PULSE 74; RESP 17; TEMP 36.9; O2SAT 97
--- NOTE | 2024-04-14 19:43 | PC.NURSE ---
Pt a&ox4, no signs of distress Pt reporting dizziness since 0800 this morning. Pt denies similar sx, and pain but reports nausea no vomiting. Pts at bedside Pt changed into hospital attire and placed on bedside monitor Plan of care ongoing.
--- NOTE | 2024-04-14 20:19 | MHC.EDTECH ---
Pt changed over into a hospital gown. red fall precaution wristband and socks put on pt. pt placed on a cardiac exercise specialist. Orthostatic vitals done and results reported to RN
[2024-04-14] MEDS: Meclizine HCl 25 MG TABLET 50 MG PO ×2 (21:45→22:43)
[2024-04-14 21:49] LABS: Thyroid Stimulating Hormone 0.97 uIU/mL (0.32-4.0)
--- NOTE | 2024-04-14 22:10 | PC.NURSE ---
Pt medicated per sep Pt assisted to bedside commode Pt vomited immediately after rec medication and sitting up Provider notified and aware New orders rec'd Plan of care ongoing
[2024-04-14] MEDS: Ondansetron ODT 4 MG TAB.RAPDIS TRANSLINGU (22:18)
--- NOTE | 2024-04-14 22:20 | PC.NURSE ---
Pt medicated per [facility] Plan of care ongoing.
[2024-04-14 22:27] LABS: Appearance Urine Clear; Color Urine Yellow; Glucose Urine UA Negative (Negative); Leukocyte Esterase Urine Moderate (2+) (Negative); Nitrite Urine Negative (Negative); UMIC TRIGGER UACC YES; Urine Blood Negative (Negative); Urine Ketones Negative (Negative); Urine Protein Negative (Neg-Trace)
[2024-04-14 22:39] LABS: Bacteria Urine None Seen (None Seen); Hyaline Casts Urine 0-2 /LPF (0-2); RBC Urine 0-2 /HPF (0-2); Squamous Epithelial Cell Urine 0-2 /HPF (0-2); UACC Culture Trigger YES
--- NOTE | 2024-04-14 22:44 | PC.NURSE ---
Pt medicated per [facility] Plan of care ongoing.
[2024-04-14 22:54] VITALS: BP 180/87; PULSE 63; RESP 14; TEMP 36.6; O2SAT 99
[2024-04-15 00:07] VITALS: BP 180/87; PULSE 63; RESP 14; TEMP 36.6; O2SAT 99
== END 2024-04-15 00:33 | disposition home or self-care (01) ==
PROVIDERS: Physician Assistant Medical; Emergency Provider Emergency Medicine; PCP Internal Medicine
DX: H81.13 Benign paroxysmal vertigo, bilateral (principal); R94.31 Abnormal electrocardiogram [ECG] [EKG]; Z79.899 Other long term (current) drug therapy; Z51.81 Encounter for therapeutic drug level monitoring
CPT/HCPCS: 11401; 36415; 70450; 80053; 81001; 83735; 84443; 84484; 85025; 85610; 87086; 93005; 99212; 99284; 99285

== ENCOUNTER 2024-05-09 12:01 | Outpatient (AMB) | payer MEDICARE, SELFPAY ==
--- NOTE | 2024-05-09 12:01 | A.OFFVIS_ITS ---
Vital Signs 05/09/24 12:02 Height 4 ft 11 in Weight 160 lb BMI 32.3 BP 161/76 H Blood Pressure Location Lt brachial Position Sitting Respiration 16 Pulse 76 Pulse Source Pulse Oximeter Pulse Oximetry (%) 99 Oxygen Delivery Method Room Air Intake Visit Reasons: 1 Month Follow Up Allergies No Known Allergies Allergy (Verified 05/22/24 14:04) Medication List - Last Reconciled 05/09/24 by Yana Angela LPN alendronate 70 mg PO QWEEK bupropion HCl XL 300 mg PO DAILY cholecalciferol (vitamin D3) 50 mcg PO DAILY citalopram 20 mg PO DAILY clobetasol 0.05% 1 appl topical DAILY PRN diclofenac sodium 1% (Aleve (diclofenac)) 2 grams topical QID PRN [glucosamin plus msm 500 mg PO DAILY] levothyroxine 50 mcg PO QAM magnesium oxide 500 mg PO DAILY meclizine 25 mg PO QID omega-3 fatty acids-fish oil (Fish Oil Extra Strength) 1 cap PO DAILY sennosides (senna) 17.2 mg (2 x 8.6 mg) PO BEDTIME 30 days HPI HPI 1 Month Follow Up: Details: 79-year-old female who presents today to the office for follow up after a month. Denies any recent cough, cold, infection, fever or other significant changes in medical history since last office visit. Past procedures 03/05/24: Left Knee Aspiration and Prolotherapy/Injection 25% Dextrose, US guided: % relief. ? 11/26/23: Left Knee aspiration, US guided: Short term relief 11/26/23: Left intraarticular knee injection with Kenalog, ultrasound guided: Short term relief 11/05/23: Left lateral infrapatellar genicular nerve block, ultrasound guidance: no relief. 10/22/23: Left knee thomas cyst drainage under ultrasound guidance: 60% relief for 2-3 weeks PFSH Medical History Bilateral knee pain Hearing deficit Dense breast tissue on mammogram Left medial knee pain Irritable bowel syndrome with constipation Depression Dyslipidemia Osteopenia of left femoral neck Acquired hypothyroidism Primary osteoarthritis Surgical History H/O colonoscopy History of arthrodesis History of cataract surgery History of tubal ligation History of appendectomy Family History Father Dysrhythmia CVD (cardiovascular disease) Mother HTN (hypertension) Breast cancer Bladder cancer Mental health disorder Maternal Grandfather Stroke Maternal Grandmother Stroke Paternal Grandfather No problems noted. Paternal Grandmother Liver cancer Social History Housing: House Are you a primary intensive care nurse to a significant other at home: No Do you presently have visiting nurse or other home services: No Alcohol intake: current Alcohol intake frequency: holidays/special occasions only Patient Tobacco Use Status: Former Tobacco user Years Smoked: 1 yr e-Cigarette/Vaping Use: Never Used Second Hand Smoke Exposure: No Advance Directives Date on File: 11/15/23 service: No Current occupational status: retired Cognitive needs: No Hearing needs: No Vision needs: Yes Review of Systems Const All systems reviewed & are unremarkable except as noted in HPI and below Physical Exam Vital Signs: Last Vital Signs Pulse 76 05/09/24 12:02 Resp 16 05/09/24 12:02 BP 161/76 H 05/09/24 12:02 Pulse Ox 99 05/09/24 12:02 Oxygen Delivery Method Room Air 05/09/24 12:02 BMI result Body Mass Index 32.3 General: Appears afebrile. Alert and oriented. Mood and affect appropriate. Follows and participates in conversation appropriately. Respiratory effort is unlabored. Able to transition from sit to stand unassisted. Ambulates with bilaterally normal heel strike and toe off. Office Procedures Joint Injection/Aspiration Joint Injection/Aspiration Details: Left knee intraarticular injection. Primary Site: left knee Prep: site was prepped using sterile technique Injected: 40 mg of, Kenalog and in the joint Approach Used: anteromedial Procedure: The patient tolerated the procedure well Coding 94191 - Large joint Procedure code (CPT) selection complete Results Reviewed Results Reviewed: No imaging is available for review. Assessment & Plan Assessment & Plan (1) Arthritis of both knees: Code(s): M17.0 - Bilateral primary osteoarthritis of knee Category: Medical Plan Patient is status post left knee intraarticular injection. Patient tolerated procedure well and was discharged home in stable condition with discharge instructions.? All questions were answered. Follow-up as needed. Scribed for Dr. Nelson by Shahid Zuniga, medical appointment scheduler, on 05/09/2024. I, Dr. Nelson, have personally reviewed and agree with the information entered by the scribe. Coding Level of Care Code Procedure Only Diagnoses Arthritis of both knees M17.0 CPT Codes Coding - 82917 Large joint: 25408 - Large joint ([id number])
[2024-05-09 12:02] VITALS: BP 161/76; PULSE 76; RESP 16; O2SAT 99; BMI 32.3
== END 2024-05-09 12:12 | disposition home or self-care (01) ==
PROVIDERS: PCP Internal Medicine; Visit Provider Internal Medicine
DX: M17.0 Bilateral primary osteoarthritis of knee (principal)
CPT/HCPCS: 20610

== ENCOUNTER → 2024-05-09 12:01 | Outpatient (BNVA) | payer MEDICARE, SELFPAY | PROVIDERS: PCP Internal Medicine; Visit Provider Internal Medicine | DX: M17.0 Bilateral primary osteoarthritis of knee (principal) | CPT/HCPCS: 20610; J2795; J3301 ==

== ENCOUNTER 2024-05-21 10:00 | Outpatient (RCR) | payer MEDICARE, SELFPAY ==
[2024-04-29 13:10] VITALS: BP 132/80; PULSE 70; O2SAT 98
--- NOTE | 2024-04-29 14:16 | MHC.PT.EP ---
[facility] [place] [facility] [place] Office [place] Office [address] [phone] F: [phone] F: [phone] F: [phone] F: [phone] Physical Therapy Plan of Care Date of Evaluation: 04/29/24 Date of Surgery: Diagnosis: This is an 79 yo female presenting to skilled PT with a script for vertigo. Assessment: This is an 79 yo female presenting to skilled PT with a script for vertigo. Patient reporting ongoing symptoms now for about 2 weeks. She was here at PT when she stated that she had been dizzy all day. She went to the walk in who sent her to the ED due to EKG results. They diagnosed her with vertigo. Since then she has had some improvements with her symptoms but they are still present. Symptoms increase with bending over, turning her head quickly. No symptoms at rest. Examination shows + oculomotor tests with looking to the R and with focusing, (-) VBI B, and normal cervical AROM. She was (-) for BPPV with anu-hallpike B and roll test B however has a hard time focusing, keeping eyes open and has symptoms upon leaving each position. Balance was not tested due to time, patient was late to appointment. S/S ? consistent with vestibular hypofunction vs vertigo. She would benefit from PT 2x/wk for 4wks to address impairments, implement HEP and optimize functional mobility. Frequency and Duration: The patient will be seen 2x/wk for 4wks Short Term Goals: Shelter Goals: I in HEP Negative in all 6 canals for dizziness and nystagmus Return to normal gait pattern without reports fo LOB due to dizziness Treatment Plan: Modalities to reduce pain, spasms and effusion. Manual therapy to restore motion and function. Therapeutic exercise to improve strength and flexibility. Neuromuscular re-education for posture and balance. Therapeutic activities to return to functional activities of daily living. Electronically signed by: Lisa Hooper PT Please sign and return to therapist. Thank you for your referral.
--- NOTE | 2024-05-27 15:36 | MHC.PT.DC ---
[facility] [place] Office [place] Office [place] [facility] [address] Meche Sharp [address] [phone] F: [phone] F: [phone] F: [phone] F: [phone] Physical Therapy Discharge Report Diagnosis: This is an 79 yo female presenting to skilled PT with a script for vertigo. Date of Surgery: Date of Evaluation: 04/29/24 Date of Discharge: 05/27/24 Treatments to Date: 4 Cancellations to Date: 0 No Shows to Date: 0 Discharge Status: Achieved Goals Improved Function Independent with HEP Discharge Summary: Patient without vertigo symptoms or nystagmus. She is baseline and understands safety with movements. She has a secondary chart open for her knee and wants to continue to work on balance and knee strengthening so we will plan to do so under that account. Electronically signed by: Lisa Hooper PT Please sign and return to therapist. Thank you for your referral.
== END 2024-05-27 15:36 | disposition home or self-care (01) ==
LOC: HO.PTCHIC 10:00
PROVIDERS: PCP Internal Medicine; Visit Provider Internal Medicine
DX: H81.10 Benign paroxysmal vertigo, unspecified ear (principal)
CPT/HCPCS: 97110; 97112; 97162

== ENCOUNTER 2024-05-22 13:52 | Outpatient (AMB) | payer MEDICARE, SELFPAY ==
[2024-05-22 13:59] VITALS: BP 142/78; PULSE 73; O2SAT 97; BMI 34.7
--- NOTE | 2024-05-22 13:59 | A.OFFVIS_ITS ---
Vital Signs 05/22/24 13:59 Height 4 ft 11 in Weight 172 lb BMI 34.7 BP 142/78 H Blood Pressure Location Lt brachial Position Sitting Pulse 73 Pulse Source Pulse Oximeter Pulse Oximetry (%) 97 Oxygen Delivery Method Room Air Intake Visit Reasons: Osteoporosis/CM Intake Note: Patient last seen by Doctor Jeny Hickman on 11/22/23. Presents today for Osteoporosis follow up. Allergies No Known Allergies Allergy (Verified 05/22/24 14:04) Medication List - Last Reconciled 05/22/24 by Jeny Hickman MD alendronate 70 mg PO QWEEK bupropion HCl XL 300 mg PO DAILY cholecalciferol (vitamin D3) 50 mcg PO DAILY citalopram 20 mg PO DAILY clobetasol 0.05% 1 appl topical DAILY PRN diclofenac sodium 1% (Aleve (diclofenac)) 2 grams topical QID PRN [glucosamin plus msm 500 mg PO DAILY] levothyroxine 50 mcg PO QAM magnesium oxide 500 mg PO DAILY meclizine 25 mg PO QID omega-3 fatty acids-fish oil (Fish Oil Extra Strength) 1 cap PO DAILY sennosides (senna) 17.2 mg (2 x 8.6 mg) PO BEDTIME 30 days HPI Comments Details: 79-year-old female with osteoporosis and generalized osteoarthritis returns for follow-up. She is taking the alendronate regularly once weekly without side effects. She recently had a corticosteroid injection in her left knee. She states that this injection was quite helpful. She is working with PT for balance and strengthening. Initial history: This is a 77-year-old female with generalized osteoarthritis and osteopenia presents for initial visit. She used to see Dr. Johnson in the past. Patient continues to have pain and stiffness of her fingers. Swelling of her DIPs. She has intermittent pain in her knees and left elbow. She states that she went to occupational therapy for her hands which did help. She has been taking Evista for many years now for osteopenia. She states that she used to take Fosamax before but she stopped due to jaw problems. Her mother was diagnosed with breast cancer in her 80s and 2-3 years later [facility] Medical History Bilateral knee pain Hearing deficit Dense breast tissue on mammogram Left medial knee pain Irritable bowel syndrome with constipation Depression Dyslipidemia Osteopenia of left femoral neck Acquired hypothyroidism Primary osteoarthritis Surgical History H/O colonoscopy History of arthrodesis History of cataract surgery History of tubal ligation History of appendectomy Family History Father Dysrhythmia CVD (cardiovascular disease) Mother HTN (hypertension) Breast cancer Bladder cancer Mental health disorder Maternal Grandfather Stroke Maternal Grandmother Stroke Paternal Grandfather No problems noted. Paternal Grandmother Liver cancer Social History Housing: House Are you a primary medical care administrator to a significant other at home: No Do you presently have visiting nurse or other home services: No Alcohol intake: current Alcohol intake frequency: holidays/special occasions only Patient Tobacco Use Status: Former Tobacco user Years Smoked: 1 yr e-Cigarette/Vaping Use: Never Used Second Hand Smoke Exposure: No Advance Directives Date on File: 11/15/23 service: No Current occupational status: retired Cognitive needs: No Hearing needs: No Vision needs: Yes Review of Systems Musc Reports arthralgias Physical Exam Vital Signs: Last Vital Signs Pulse 73 05/22/24 13:59 BP 142/78 H 05/22/24 13:59 Pulse Ox 97 05/22/24 13:59 Oxygen Delivery Method Room Air 05/22/24 13:59 BMI result Body Mass Index 34.7 Const General: cooperative, healthy appearing and comfortable Nutritional Appearance: obese Orientation/consciousness: patient oriented x3 Limitations: no limitations HEENT Head: Yes normocephalic and Yes atraumatic Mouth: moist mucous membranes Resp Effort & Inspection: normal respiratory effort and able to speak in complete sentences Neuro General: patient oriented x3 Extrem Other: Significant osteoarthritic changes of both hands with prominent Heberden's nodes that are mildly tender to palpation Normal nailfold capillaroscopy Bilateral knee crepitus Assessment & Plan Assessment & Plan (1) Osteoporosis: Comment: Was on Evista for more than 10 years DEXA 03/2023 Showed worsening T-score at left femoral neck from -2.3 in 2019 to -2.7 L-spine T-score -1.6, unchanged from 2020 Alendronate started 04/2023 well-tolerated Code(s): M81.0 - Age-related osteoporosis without current pathological fracture Category: Medical Qualifiers: Osteoporosis type: age-related Presence of current pathological fracture: without current pathological fracture Qualified Code(s): M81.0 - Age- related osteoporosis without current pathological fracture Plan: 79-year-old female with osteoporosis returns for follow-up. On alendronate 70 mg weekly. Well-tolerated. Continue with alendronate 70 mg weekly Continue with vitamin-D supplementation Repeat DEXA in 03/2025 labs before next visit in 1 year (2) Osteoarthritis of hands, bilateral: Code(s): M19.041 - Primary osteoarthritis, right hand; M19.042 - Primary osteoarthritis, left hand Category: Medical Qualifiers: Osteoarthritis type: primary Qualified Code(s): M19.041 - Primary osteoarthritis, right hand; M19.042 - Primary osteoarthritis, left hand Plan I spent 15 minutes reviewing patient's chart, evaluating patient, ordering diagnostic workup, counseling patient and documenting in the chart Orders: Orders Comprehensive Met. Panel 1 Year M81.0 - Age-related osteoporosis without current pathological fracture XR DEXA axial skeleton 03/30/25 M81.0 - Age-related osteoporosis without current pathological fracture Collagen Type I C-Telopeptide 1 Year M81.0 - Age-related osteoporosis without current pathological fracture Vitamin D 25-OH Total 1 Year E55.9 - Vitamin D deficiency, unspecified Coding Level of Care Code Est Pt Level 3 (74492) Diagnoses Age-related osteoporosis without current pathological fracture M81.0 Osteoporosis type: age-related Presence of current pathological fracture: without current pathological fracture Primary osteoarthritis of both hands M19.041; M19.042 Osteoarthritis type: primary
== END 2024-05-22 14:33 | disposition home or self-care (01) ==
PROVIDERS: PCP Internal Medicine; Visit Provider Student in an Organized Health Care Education/Training Program
DX: M81.0 Age-related osteoporosis without current pathological fracture (principal); M19.041 Primary osteoarthritis, right hand; M19.042 Primary osteoarthritis, left hand
CPT/HCPCS: 99213

== ENCOUNTER → 2024-05-22 13:52 | Outpatient (BNVA) | payer MEDICARE, SELFPAY | PROVIDERS: PCP Internal Medicine; Visit Provider Student in an Organized Health Care Education/Training Program | DX: M81.0 Age-related osteoporosis without current pathological fracture (principal); M19.90 Unspecified osteoarthritis, unspecified site; M85.80 Other specified disorders of bone density and structure, unspecified site; M19.041 Primary osteoarthritis, right hand; M19.042 Primary osteoarthritis, left hand; E55.9 Vitamin D deficiency, unspecified | CPT/HCPCS: 99212 ==

== ENCOUNTER 2024-05-26 09:49 | Outpatient (REF) | payer MEDICARE, SELFPAY ==
[2024-05-26 14:31] LABS: Cholesterol 242 mg/dL (<200); HDL Cholesterol 80 mg/dL (>40); LDL Cholesterol Calculated 147 mg/dL (<100); Triglycerides 77 mg/dL (<150)
[2024-05-26 14:34] LABS: Free T4 (Free Thyroxine) 0.94 ng/dL (0.71-1.85); Thyroid Stimulating Hormone 1.47 uIU/mL (0.32-4.0); Vitamin D 25-OH Total 39.7 ng/mL (>30)
== END 2024-05-26 09:50 | disposition home or self-care (01) ==
LOC: HO.HMGCLDS 09:49
PROVIDERS: PCP Internal Medicine; Visit Provider Internal Medicine
DX: E03.9 Hypothyroidism, unspecified (principal); E78.5 Hyperlipidemia, unspecified
CPT/HCPCS: 36415; 80061; 82306; 84439; 84443

== ENCOUNTER 2024-05-28 11:00 | Outpatient (AMB) | payer MEDICARE, SELFPAY ==
--- NOTE | 2024-05-28 11:30 | A.OFFPC_ITS ---
Vital Signs 05/28/24 11:35 Height 5 ft 1 in Weight 173 lb BMI 32.7 BP 132/82 Blood Pressure Location Lt brachial Position Sitting Pulse 73 Pulse Source Pulse Oximeter Pulse Oximetry (%) 97 Oxygen Delivery Method Room Air Intake Visit Reasons: PE Intake Note: Pt is here today for her PE: Last mammogram 03/07/24, bone density scan 04/24/23, colonoscopy 04/05/23 Allergies No Known Allergies Allergy (Verified 05/28/24 11:56) Medication List - Last Reconciled 05/28/24 by Yvette Shaffer MD alendronate 70 mg PO QWEEK bupropion HCl XL 300 mg PO DAILY cholecalciferol (vitamin D3) 50 mcg PO DAILY citalopram 20 mg PO DAILY clobetasol 0.05% 1 appl topical DAILY PRN [glucosamin plus msm 500 mg PO DAILY] levothyroxine 50 mcg PO QAM magnesium oxide 500 mg PO DAILY meclizine 25 mg PO QID omega-3 fatty acids-fish oil (Fish Oil Extra Strength) 1 cap PO DAILY sennosides (senna) 17.2 mg (2 x 8.6 mg) PO BEDTIME 30 days Tobacco use date assessed: 05/28/24 Fall risk assessment: No Falls in past year Last assessed Fall Risk: 05/28/24 Dental Screening Dental Screen Date: 05/28/24 Did you have a dental visit in the last 12 months?: Yes Did you have a dental problem in the last 6 months where you did not have access to dental care?: Yes Was dental information given to patient?: Patient has dentist HPI PE HPI Details 79 year-old lady here today for follow-u p on her hyperlipidemia and hypothyroidism. Has been taking her medicines as directed, Last mammogram 03/07/24 which came back with negative findings. Her last bone density scan done on 04/24/23, ordered by Dr. Hussein showed presence of osteoporosis., currently on alendronate Her last colonoscopy 04/05/[address] Cartwright showed presence of tubular adenomas which were removed, repeat due again in 2025. [facility] Medical History (Updated 06/01/24 @ 19:00 by Yvette Shaffer MD) Hearing deficit Dense breast tissue on mammogram Irritable bowel syndrome with constipation Depression Dyslipidemia Osteopenia of left femoral neck Acquired hypothyroidism Primary osteoarthritis Surgical History H/O colonoscopy History of arthrodesis History of cataract surgery History of tubal ligation History of appendectomy Family History Father Dysrhythmia CVD (cardiovascular disease) Mother HTN (hypertension) Breast cancer Bladder cancer Mental health disorder Maternal Grandfather Stroke Maternal Grandmother Stroke Paternal Grandfather No problems noted. Paternal Grandmother Liver cancer Social History Housing: House Are you a primary director of healthcare systems to a significant other at home: No Do you presently have visiting nurse or other home services: No Alcohol intake: current Alcohol intake frequency: holidays/special occasions only Patient Tobacco Use Status: Former Tobacco user Years Smoked: 1 yr e-Cigarette/Vaping Use: Never Used Second Hand Smoke Exposure: No Advance Directives Date on File: 11/15/23 service: No Current occupational status: retired Cognitive needs: No Hearing needs: No Vision needs: Yes Questionnaire PHQ-9 Over the last 2 weeks, how often have you been bothered by any of the following problems? 1. Little interest or pleasure in doing things: several days 2. Feeling down, depressed, or hopeless: several days Depression Screening Interpretation: Positive (sees therapist and started Marriage counseling) Depression Screening Done: Yes Source: Developed by Drs. Rajinder San, Terri Martines, Donte Cannon and colleagues, with an educational simi from [employer]. Thrive Questionnaire Date Thrive assessed: 05/21/24 I am a: Patient What is your living situation today?: I have a steady place to live Within the past 12 months, did the food you bought not last and you didn't have the money to get more?: Never true Within the past 12 months, did you worry whether your food would run out before you got money to buy more?: Never true Do you have trouble paying for medicines?: No Do you have trouble getting transportation to medical appointments?: No Do you have trouble paying your heating and electricity bill?: No Do you have trouble taking care of your child, family member or friend?: No Do you have trouble with day-to-day activities such as bathing, preparing meals, shopping, managing finances, etc.?: No Are you currently unemployed and looking for a job?: No Are you interested in more education?: No Please select the resources that you would like help with: None Currently or been in a relationship where the following occur: No concerns reported THRIVE Score: 0 AUDIT C Alcohol Use Questionnaire (AUDIT-C) 1. How often do you have a drink containing alcohol?: 2-4 times a month 2. How many drinks containing alcohol do you have on a typical day when you are drinking?: 1 or 2 3. How often do you have six or more drinks on one occasion?: Never Total Score: 2 EVELINE-7 AMB Questionnaire EVELINE-7 Date EVELINE - 7 assessed: 11/15/23 Feeling nervous, anxious, or on edge: 1 = Several days Not being able to stop or control worryin = Several days Worrying too much about different things: 1 = Several days Trouble relaxin = Not at all Being so restless that it is hard to sit still: 0 = Not at all Becoming easily annoyed or irritable: 1 = Several days Feeling afraid as if something awful might happen: 1 = Several days Total EVELINE-7 score (0-4 normal; 5-9 mild; 10-14 moderate; 15-21 severe): 5 Source: Developed by Drs. Rajinder San, Terri Martines, Donte Cannon and colleagues, with an educational simi from [employer]. Review of Systems Const Denies fatigue, Denies fever(s), Denies headache(s) and Denies poor appetite Eyes Denies change in vision ENT Reports Normal hearing present, Denies headache(s), Denies nasal congestion and Denies post nasal drip Card Reports no additional complaints Resp Reports no additional complaints GI Denies abdominal pain and Denies heartburn Reports no additional complaints Musc Reports back pain (Occasional), Reports arthralgias and Reports stiffness Skin/Breast Denies pruritus, Denies lesions and Denies rash Neuro Reports Normal hearing present, Denies Abnormal speech present and Denies headache(s) Psych Reports no additional complaints Endo Denies fatigue Juan Manuel/Lymph Reports no additional complaints Aller/Immun Reports no additional complaints Physical exam (Primary Care) Vital Signs: Last Vital Signs Pulse 73 05/28/24 11:35 BP 132/82 05/28/24 11:35 Pulse Ox 97 05/28/24 11:35 Oxygen Delivery Method Room Air 05/28/24 11:35 BMI result Body Mass Index 32.7 Tobacco/Smoking Status: Tobacco use Status Tobacco use date assessed 05/28/24 05/28/24 11:32 Patient Tobacco Use Status Former Tobacco user 05/28/24 11:32 e-Cigarette/Vaping Use Never Used 05/28/24 11:32 Depression Screening Interpretation: Positive (sees therapist and started Marriage counseling) Thrive Assessment: Date of Thrive Assessment Date Thrive assessed 05/21/24 05/28/24 11:32 Currently or been in a relationship where the following occur: No concerns reported Const Other: Alert oriented x3, no acute distress noted Orientation/consciousness: patient oriented x3 [facility] Head: Yes normocephalic and Yes atraumatic Ears: hearing grossly normal bilaterally General nose exam: Normal external nose present Face and sinus: Yes face symmetric Mouth: Normal oral and palatal mucosa present, oropharynx normal and moist mucous membranes Eyes General: appearance normal, both eyes and all related structures Neck Neck: Yes full ROM, Yes no lymphadenopathy and Yes supple Thyroid: Thyroid normal Chest Breast/axilla palpation: normal palpation of the breasts Resp Auscultation: clear to auscultation bilaterally Cardio Other: S1-S2 present regular rate and rhythm GI Palpation (GI): Soft to palpation, nontender, no guarding and no masses General: Yes deferred Back/Spine/Pelvis Back: No back tenderness Skin General skin exam: no rashes or lesions noted Neuro General: patient oriented x3, gait normal, tone normal, Normal light touch and pain sensation, no focal motor deficits and CN's II-XI intact bilaterally Cranial nerves: Yes Normal hearing present Speech: No Abnormal speech present Extrem General: Yes full ROM, Yes no joint enlargement, Yes no pedal edema and Yes normal gait Psych Appearance: grossly normal Mental Status: mental status grossly normal Speech and movement: Normal speech and movement present Affect: normal affect Attitude: cooperative Thought process: Normal thought process present Results Reviewed Results Reviewed: Name: Thelma Mireles Age/Sex: 79/F : 1945 Unit#: [id number] Attend Dr: Fercho Moctezuma MD Re04/14/24 Status: DEP ER Location: .ED Disch: SPEC : [id number] KIMBERLY: 04/14/24 STATUS: COMP REQ : [id number] RECD: 04/14/[address]: Kaylynn De La Fuente COMP: 04/14/24 ENTERED: 04/14/[address]: Yvette Shaffer MD ORDERED: CBC Auto Diff Test Result Flag Reference WBC 9.2 4.8-10.8 X10*3/uL RBC 4.52 4.20-5.50 X10*6/uL HGB 13.4 12.0-16.0 g/dl HCT 39.8 37.0-47.0 % MCV 88.1 80.0-98.0 fL MCH 29.6 27.0-33.0 pg MCHC 33.7 31.0-35.0 g/dl RDW 13.0 11.0-16.0 % PLT 311 160-400 X10*3/uL MPV 10.0 9.4-12.3 fL Neut Pct Auto 71.7 45-73 % ImGran Pct Auto 0.3 0.0-0.4 % Lymp Pct Auto 19.4 L 20-40 % Beckham Pct Auto 6.7 2-11 % Eos Pct Auto 1.4 0-4 % Baso Pct Auto 0.5 0-2 % NRBC Pct Auto 0.0 0.0-0.2 /100WBC ANC Neut Abs # 6.6 2.0-8.3 x10*3/uL ImGran Abs Auto 0.03 0.00-0.03 X10*3/uL Lymph Abs Auto 1.8 1.2-4.9 X10*3/uL Beckham Abs Auto 0.6 0.1-1.2 X10*3/uL Eos Abs Auto 0.1 0.0-0.4 X10*3/uL Baso Abs Auto 0.1 0.0-0.2 X10*3/uL NRBC Abs Auto 0.000 0.0-0.012 X10*3/uL timmy: Thelma Mireles Age/Sex: 79[facility] 1945 [id number] [id number] Attend Dr: Yvette Shaffer MD Re05/26/24 Status: DEP REF Location: [facility] Disch: SPEC : [id number] KIMBERLY: 05/26/24 STATUS: COMP REQ : [id number] RECD: 05/26/[address]: Yvette Shaffer MD COMP: 05/26/24 ENTERED: 05/26/[address] [facility] DR: ORDERED: Lipid Panel, Vitamin D 25-OH, Free T4, TSH Test Result Flag Reference Triglyceride 77 <150 mg/dL Desirable Triglyceride: less than 150 mg/dL Borderline High Triglyceride 150-199 mg/dL High Triglyceride: 200-499 mg/dL Very High Triglyceride: greater than or equal to 5OO mg/dL Cholesterol 242 H <200 mg/dL Desirable Cholesterol: less than 200 mg/dL Borderline High Cholesterol: 200-239 mg/dL High Cholesterol: greater than 239 mg/dL LDL Calculated 147 H <100 mg/dL Desirable LDL: less than 100 mg/dL Near Optimal/Above Optimal LDL: 110-129 mg/dL Borderline High LDL: 130-159 mg/dL High LDL: 160-189 mg/dL Very High LDL: greater than or equal to 190 mg/dL HDL 80 >40 mg/dL Desirable HDL: greater than 40 mg/dL Note: This HDL assay may give artificially low results in patients with liver disease. Vit D 25-OH Tot 39.7 >30 ng/mL Health Based Reference Values* < 20 ng/mL Deficient 20-30 ng/mL Insufficient > 30 ng/mL Sufficient *Gt PAL. N Engl J Med. 2007;357:266-280 Care must be taken in interpreting Vitamin D results from different laboratories and methodologies. Published data demonstrated that results from patients undergoing hemodialysis may show a negative bias when tested with various automated 25-OH vitamin D assays when compared to LC-MS/MS. When testing samples from patients whose predominant form of Vitamin D is Vitamin D2, such as patients receiving Vi tamin D2 supplementation, results that are subtherapeutic should be confirmed with another method such as LC-MS/MS. Free T4 0.94 0.71-1.85 ng/dL TSH 3rd Gen. 1.47 0.32-4.0 uIU/mL TSH 3rd Generation ([facility]) Coding Level of Care Code Est Pt Prev Care >65y(99866) Diagnoses Annual visit for general adult medical examination with abnormal findings Z00. Primary osteoarthritis M19.91 Acquired hypothyroidism E03.9 Dyslipidemia E78.5 Depression F32.9 Age-related osteoporosis without current pathological fracture M81.0 Osteoporosis type: age-related Presence of current pathological fracture: without current pathological fracture Assessment & Plan Assessment & Plan (1) Annual visit for general adult medical examination with abnormal findings: Code(s): Z00. - Encounter for general adult medical examination with abnormal findings Plan: Reviewed recent fasting lab results with patient. Continue with dental visit every 6 months and regular eye exams, at least every 2 years. Take adequate calcium in diet and vitamin-D 3 at 2000 IU per cap once a day, in addition to weight-bearing exercises to help maintain good muscle tone and weight control. Continue with yearly mammogram, up-to-date. She is also up-to-date with her screening bone density scan done last year. And is up-to-date with her colonoscopy screening, due again in 2025. Up-to-date with her pneumococcal vaccination, flu shot, Tdap and shingles vaccine. Reminded to get COVID villalobos ster. (2) Primary osteoarthritis: Code(s): M19.91 - Primary osteoarthritis, unspecified site Category: Medical Plan: Followed by Rheumatology (3) Acquired hypothyroidism: Code(s): E03.9 - Hypothyroidism, unspecified Category: Medical Plan: Thyroid levels are within normal limits, currently on levothyroxine 50 mcg daily in a.m. (4) Dyslipidemia: Code(s): E78.5 - Hyperlipidemia, unspecified Category: Medical Plan: Latest fasting lipids showed elevated LDL cholesterol with normal good cholesterol and triglycerides. Reminded to follow a low-cholesterol diet and get regular exercise. Continue with Loiza 3 fatty acid supplements (5) Depression: Code(s): F32.9 - Major depressive disorder, single episode, unspecified Category: Medical Plan: Controlled with bupropion and citalopram (6) Osteoporosis: Comment: Was on Evista for more than 10 years DEXA 03/2023 Showed worsening T-score at left femoral neck from -2.3 in 2019 to -2.7 L-spine T-score -1.6, unchanged from 2020 Alendronate started 04/2023 well-tolerated Code(s): M81.0 - Age-related osteoporosis without current pathological fracture Category: Medical Qualifiers: Osteoporosis type: age-related Presence of current pathological fracture: without current pathological fracture Qualified Code(s): M81.0 - Age- related osteoporosis without current pathological fracture Plan: Currently on alendronate, followed by Rheumatology Orders: Orders Aspartate Amino Transferase 09/26/24 E03.9 - Hypothyroidism, unspecified, E78.5 - Hyperlipidemia, unspecified, M19.91 - Primary osteoarthritis, unspecified site, M81.0 - Age-related osteoporosis without current pathological fracture Basic Metabolic Panel Fasting 09/26/24 E03.9 - Hypothyroidism, unspecified, E78.5 - Hyperlipidemia, unspecified, M19.91 - Primary osteoarthritis, unspecified site, M81.0 - Age-related osteoporosis without current pathological fracture Free T4 (Free Thyroxine) 09/26/24 E03.9 - Hypothyroidism, unspecified, E78.5 - Hyperlipidemia, unspecified, M19.91 - Primary osteoarthritis, unspecified site, M81.0 - Age-related osteoporosis without current pathological fracture Lipid Panel 09/26/24 E03.9 - Hypothyroidism, unspecified, E78.5 - Hyperlipidemia, unspecified, M19.91 - Primary osteoarthritis, unspecified site, M81.0 - Age-related osteoporosis without current pathological fracture Alanine Aminotransferase 09/26/24 E03.9 - Hypothyroidism, unspecified, E78.5 - Hyperlipidemia, unspecified, M19.91 - Primary osteoarthritis, unspecified site, M81.0 - Age-related osteoporosis without current pathological fracture Thyroid Stimulating Hormone 09/26/24 E03.9 - Hypothyroidism, unspecified, E78.5 - Hyperlipidemia, unspecified, M19.91 - Primary osteoarthritis, unspecified site, M81.0 - Age-related osteoporosis without current pathological fracture Vitamin D 25-OH Total 09/26/24 E03.9 - Hypothyroidism, unspecified, E78.5 - Hyperlipidemia, unspecified, M19.91 - Primary osteoarthritis, unspecified site, M81.0 - Age-related osteoporosis without current pathological fracture
[2024-05-28 11:35] VITALS: BP 132/82; PULSE 73; O2SAT 97; BMI 32.7
== END 2024-05-28 12:29 | disposition home or self-care (01) ==
LOC: HO.HMCC 11:01
PROVIDERS: PCP Internal Medicine; Visit Provider Internal Medicine
DX: Z00.01 Encounter for general adult medical examination with abnormal findings (principal); M19.91 Primary osteoarthritis, unspecified site; E03.9 Hypothyroidism, unspecified; E78.5 Hyperlipidemia, unspecified; F32.9 Major depressive disorder, single episode, unspecified; M81.0 Age-related osteoporosis without current pathological fracture

== ENCOUNTER → 2024-05-28 11:00 | Outpatient (BNVA) | payer MEDICARE, SELFPAY | PROVIDERS: PCP Internal Medicine; Visit Provider Internal Medicine | DX: Z00.01 Encounter for general adult medical examination with abnormal findings (principal); M19.91 Primary osteoarthritis, unspecified site; E03.9 Hypothyroidism, unspecified; E78.5 Hyperlipidemia, unspecified; F32.9 Major depressive disorder, single episode, unspecified; M81.0 Age-related osteoporosis without current pathological fracture | CPT/HCPCS: 99397 ==

== ENCOUNTER 2024-06-19 10:00 | Outpatient (RCR) | payer MEDICARE, SELFPAY ==
--- NOTE | 2024-03-04 08:55 | MHC.PT.EP ---
[facility] [place] Office [place] Office [place] [facility] [address] Meche Sharp [address] [phone] F: [phone] F: [phone] F: [phone] F: [phone] Physical Therapy Plan of Care Date of Evaluation: 03/04/24 Date of Surgery: Diagnosis: This is an 79 yo female presenting to skilled PT with a script for pain in L knee. Assessment: This is an 79 yo female presenting to skilled PT with a script for pain in L knee. Patient has had ongoing L knee pain for over 5 years now. However, towards the end of Jun 2023 patient had an incident of increased leg swelling and was worried about a blood clot, she went to the ED and it was deemed a thomas's cyst. She has tried Tylenol and anti-inflammatory medicines which gave her minimal relief. She was being followed by [facility] [place] and had a gel injection performed on 08/21/23 (no relief). The patient was also fitted with a Drytex knee brace because of her symptoms of instability (does not like it very much). She now uses a sleeve brace for 2-3 hrs a day (minimal relief, caused itching, as did compression socks). However she is now being followed by pain management and has had a cortisone (did not provide relief). She was also instructed on using a cane (which she states causes her balance to be poor) and take turmeric. The patient sees them again tomorrow and she thinks she will be getting another injection and ? draining posterior knee. Her pain is located throughout the knee joint, posterior knee, lateral and medial joint line, distal ITB. Her pain is achy and she reports swelling throughout the extremity. The patient reports occasionally feeling unsteady, the L knee ayla. She has increased pain with bending her knee, sitting, stairs, walking and squatting. Pain is not constant. She has been here to this facility in the past on multiple occasions for the same issue, the last being in August 2023, she does not continue any HEP at this time for her knee. Assessment reveals pain that ranges from up to a 7/10 at the worst. Patient demos decreased BLE and lumbar ROM, strength of BLEs, TTP at L knee medial and lateral joint line, impaired posture with forward head and rounded shoulders, impaired gait as described in evaluation and decreased balance. Based on functional limitations, impaired QOL and pain tolerance patient is a good candidate for skilled PT 2x/wk for 4wks. Frequency and Duration: The patient will be seen 2x/wk for 4wks Short Term Goals: (in 2 weeks) Patient will improve knee AROM by at least 10 degs without assist Patient will demo good undestanding and performance of quad set in multiple different planes without cues from PT and tolerate 10 reps of SLR Patient will be I in HEP Mcfp Goals: (in 4 weeks) Patient will report 75% improvement in balance and strength of LLE as evidenced by reports no of falls or buckling in LE Patient will improve LEFs by 10 points Patient will demo WFL AROM of knee and ankle Patient will demo proper squat and lift techniques without increase in pain Treatment Plan: Modalities to reduce pain, spasms and effusion. Manual therapy to restore motion and function. Therapeutic exercise to improve strength and flexibility. Neuromuscular re-education for posture and balance. Therapeutic activities to return to functional activities of daily living. Electronically signed by: Lisa Hooper PT Please sign and return to therapist. Thank you for your referral.
--- NOTE | 2024-07-18 08:06 | MHC.PT.DC ---
[facility] [place] Office [place] Office [place] Office [address] [phone] F: [phone] F: [phone] F: [phone] F: [phone] Physical Therapy Discharge Report Diagnosis: This is an 79 yo female presenting to skilled PT with a script for pain in L knee. Date of Surgery: Date of Evaluation: 03/04/24 Date of Discharge: 07/18/24 Treatments to Date: 13 Cancellations to Date: 0 No Shows to Date: 0 Discharge Status: Discharge Summary: 06/19: Pt has come to 13 visits of PT. She has improved her pain, ROM and strength but would benefit from an assessment from an ortho for TKR as she has plateaued in progress with us. Patient has met her goals, has been educated on trialing the senior center and continuing her HEP in the mean time. Electronically signed by: Lisa Hooper PT Please sign and return to therapist. Thank you for your referral.
== END 2024-07-18 08:06 | disposition home or self-care (01) ==
LOC: HO.PTCHIC 10:00
PROVIDERS: PCP Internal Medicine; Visit Provider Internal Medicine
DX: M25.562 Pain in left knee (principal)
CPT/HCPCS: 97110; 97112; 97116; 97140; 97162; 97535

== ENCOUNTER 2024-08-29 10:29 | Outpatient (AMB) | payer MEDICARE, SELFPAY ==
--- NOTE | 2024-08-29 10:31 | MHC.OFFWIV ---
Intake Vital Signs 08/29/24 10:34 Height 5 ft 1 in BMI Reason not done Patient refused/unable BP 128/80 Blood Pressure Location Rt brachial Position Sitting Pulse 74 Pulse Source Pulse Oximeter Temp 98.1 F Temp Source Oral Pulse Oximetry (%) 96 Oxygen Delivery Method Room Air Intake Visit Reasons: EP-cough, sore throat Intake Note: pt is here for cough, sore throat from coughing. denies rapid strep test at this time. Patient Tobacco Use Status: Former Tobacco user Allergies No Known Allergies Allergy (Verified 08/29/24 10:32) Do you need a note to return to daycare/school/sports/work: No HPI HPI Comments History of Present Illness Details This is an 79-year-old female who presented to the walk-in clinic complaining of a persistent dry cough in the setting of recent viral URI symptoms. Patient states she has had a cold for the past several weeks although those symptoms have resolved. However, patient is experiencing a persistent dry cough, which occurs mostly at night time. She denies any fevers or chills. She denies any sputum production/purulence. She denies any chest pain or shortness of breath. [facility] Medical History (Updated 06/01/24 @ 19:00 by Yvette Shaffer MD) Hearing deficit Dense breast tissue on mammogram Irritable bowel syndrome with constipation Depression Dyslipidemia Osteopenia of left femoral neck Acquired hypothyroidism Primary osteoarthritis Surgical History H/O colonoscopy History of arthrodesis History of cataract surgery History of tubal ligation History of appendectomy Family History Father Dysrhythmia CVD (cardiovascular disease) Mother HTN (hypertension) Breast cancer Bladder cancer Mental health disorder Maternal Grandfather Stroke Maternal Grandmother Stroke Paternal Grandfather No problems noted. Paternal Grandmother Liver cancer Social History Housing: House Are you a primary home health aide caregiver to a significant other at home: No Do you presently have visiting nurse or other home services: No Alcohol intake: current Alcohol intake frequency: holidays/special occasions only Patient Tobacco Use Status: Former Tobacco user Years Smoked: 1 yr e-Cigarette/Vaping Use: Never Used Second Hand Smoke Exposure: No Advance Directives Date on File: 11/15/23 service: No Current occupational status: retired Cognitive needs: No Hearing needs: No Vision needs: Yes Review of Systems Const All systems reviewed & are unremarkable except as noted in HPI and below Reports no additional complaints Eyes Reports no additional complaints ENT Reports no additional complaints Card Reports no additional complaints Resp Reports no additional complaints GI Reports no additional complaints Reports no additional complaints Musc Reports no additional complaints Skin/Breast Reports system reviewed and no additional complaints, except as documented Neuro Reports no additional complaints Psych Reports no additional complaints Endo Reports no additional complaints Juan Manuel/Lymph Reports no additional complaints Aller/Immun Reports no additional complaints Physical Exam Vital Signs: Last Vital Signs Temp 98.1 F 08/29/24 10:34 Pulse 74 08/29/24 10:34 BP 128/80 08/29/24 10:34 Pulse Ox 96 08/29/24 10:34 Oxygen Delivery Method Room Air 08/29/24 10:34 Const Other: Vital signs reviewed. Constitutional: Non-toxic appearing. No acute distress. Well-developed and well-nourished. HEENT: Normocephalic and atraumatic. Tympanic membranes without erythema, edema, or bulging bilaterally. External auditory canals without erythema or edema bilaterally. Moist mucous membranes. No pharyngeal erythema or exudates. Skin: Warm and dry. No rashes or lesions noted. Neck: Full and painless range of motion. No cervical lymphadenopathy. Cardio: Regular rate and rhythm. No murmurs, gallops, or rubs. No lower extremity edema. No JVD. Pulmonary: No respiratory distress. No accessory muscle usage. Clear to auscultation bilaterally without wheezing, crackles, or rhonchi. Gastrointestinal: Soft, nontender, and nondistended in all 4 quadrants. Normoactive bowel sounds in all 4 quadrants. Genitourinary: No CVA tenderness. Musculoskeletal: Normal range of motion in joints throughout the body. No deformity or other signs of injury. Neuro: Alert and oriented x4. Cranial nerves 2-12 grossly intact. No focal deficits appreciated. Psych: Normal mood and affect. Assessment & Plan Assessment & Plan (1) Post-viral cough syndrome: Code(s): R05.8 - Other specified cough Plan: This is an 79-year-old female who presented to the walk-in clinic complaining of a persistent cough in the setting of a recent viral URI. She has no fever/chills and no sputum production/purulence. On physical examination, her lungs are clear to auscultation bilaterally. Patient very likely has a post viral cough syndrome. Low suspicion for acute bronchitis given no wheezing and low suspicion for pneumonia given no sputum production or fevers. Patient was given a prescription for p.o. benzonatate 200 mg 3 times daily as needed for cough. She was encouraged to use a humidifier at nighttime as well. Patient was advised to follow-up here if she were to develop fevers, sputum production, or shortness of breath. Patient verbalized her understanding and she is in agreement with the plan and she was very appreciative. Medications: New benzonatate 200 mg PO TID PRN 14 caps 0RF cough Coding Level of Care Code Est Pt Level 3 (60876) Diagnoses Post-viral cough syndrome R05.8
[2024-08-29 10:34] VITALS: BP 128/80; PULSE 74; TEMP 36.7; O2SAT 96
== END 2024-08-29 11:08 | disposition home or self-care (01) ==
PROVIDERS: PCP Internal Medicine; Visit Provider Physician Assistant Medical
DX: R05.8 Other specified cough (principal)

== ENCOUNTER 2024-10-23 09:43 | Outpatient (REF) | payer MEDICARE, SELFPAY ==
[2024-10-23 13:49] LABS: Alanine Aminotransferase 17 U/L (0-31); Anion Gap 10 (12-20); Aspartate Amino Transferase 22 U/L (5-31); Blood Urea Nitrogen 23 mg/dL (9-16); Calcium 9.5 mg/dL (8.4-10.2); Carbon Dioxide 26 mmol/L (22-29); Chloride 108 mmol/L (96-108); Cholesterol 213 mg/dL (<200); Estimated Glomerular Filt Rate > 60; Glucose Fasting 85 mg/dL (60-99); HDL Cholesterol 68 mg/dL (>40); LDL Cholesterol Calculated 131 mg/dL (<100); Sodium 140 mmol/L (135-145); Triglycerides 72 mg/dL (<150)
[2024-10-23 13:58] LABS: Free T4 (Free Thyroxine) 1.06 ng/dL (0.71-1.85); Thyroid Stimulating Hormone 2.64 uIU/mL (0.32-4.0); Vitamin D 25-OH Total 47.6 ng/mL (>30)
[2024-10-29 19:19] LABS: Lipoprotein A 61 nmol/L (<75)
== END 2024-10-23 09:44 | disposition home or self-care (01) ==
LOC: HO.HMGCLDS 09:43
PROVIDERS: PCP Internal Medicine; Visit Provider Internal Medicine
DX: M81.0 Age-related osteoporosis without current pathological fracture (principal); E78.5 Hyperlipidemia, unspecified; E03.9 Hypothyroidism, unspecified; M19.91 Primary osteoarthritis, unspecified site; Z82.49 Family history of ischemic heart disease and other diseases of the circulatory system
CPT/HCPCS: 36415; 80048; 80061; 82306; 83695; 84439; 84443; 84450; 84460

== ENCOUNTER → 2024-10-30 16:10 | Outpatient (BNVA) | payer MEDICARE, SELFPAY | PROVIDERS: PCP Internal Medicine; Visit Provider Dietitian, Registered ==

== ENCOUNTER → 2024-11-03 09:32 | Outpatient (BNVA) | payer MEDICARE, SELFPAY | PROVIDERS: PCP Internal Medicine; Visit Provider Dietitian, Registered ==

== ENCOUNTER → 2024-11-18 10:55 | Outpatient (BNVA) | payer MEDICARE, SELFPAY | PROVIDERS: PCP Internal Medicine; Visit Provider Dietitian, Registered | DX: K58.1 Irritable bowel syndrome with constipation (principal); E78.5 Hyperlipidemia, unspecified; E03.9 Hypothyroidism, unspecified; J06.9 Acute upper respiratory infection, unspecified | CPT/HCPCS: 99212 ==

== ENCOUNTER 2024-11-18 10:58 | Outpatient (AMB) | payer MEDICARE, SELFPAY ==
--- NOTE | 2024-11-18 11:26 | MHC.PC.OV ---
Vital Signs 11/18/24 11:28 Height 5 ft 1 in Weight 178 lb BMI 33.6 BP 146/100 H Blood Pressure Location Lt brachial Position Sitting Respiration 16 Pulse 71 Pulse Source Pulse Oximeter Temp 97.9 F Temp Source Oral Pulse Oximetry (%) 94 Oxygen Delivery Method Room Air Intake Visit Reasons: 4 month follow Intake Note: Pt is here today for her 4mo. f/u lab results Allergies No Known Allergies Allergy (Verified 11/18/24 11:45) Medication List - Last Reconciled 11/18/24 by Yvette Shaffer MD alendronate 70 mg PO QWEEK 90 days benzonatate 200 mg PO TID PRN bupropion HCl XL 300 mg PO DAILY cholecalciferol (vitamin D3) 50 mcg PO DAILY citalopram 20 mg PO DAILY clobetasol 0.05% 1 appl topical DAILY PRN [glucosamin plus msm 500 mg PO DAILY] levothyroxine 50 mcg PO QAM magnesium oxide 500 mg PO DAILY omega-3 fatty acids-fish oil (Fish Oil Extra Strength) 1 cap PO DAILY sennosides (senna) 17.2 mg (2 x 8.6 mg) PO BEDTIME 30 days Tobacco use date assessed: 05/28/24 Dental Screening Dental Screen Date: 05/28/24 HPI 4 month follow HPI Details - Patient received all available COVID-19 vaccinations but missed the latest booster. - Flu vaccination up to date with the last dose received in March 2024. - Pneumonia, RSV, shingles, and tetanus vaccinations are current. - Thyroid and cholesterol levels are monitored and showing normal results - Labs: Electrolytes normal, glucose normal, calcium normal, and liver function test normal. Lipoprotein A and Vitamin D normal. Thyroid function tests are normal. Total Cholesterol and LDL levels are decreased compared to previous tests. [facility] Medical History Hearing deficit Dense breast tissue on mammogram Irritable bowel syndrome with constipation Depression Dyslipidemia Osteopenia of left femoral neck Acquired hypothyroidism Primary osteoarthritis Surgical History H/O colonoscopy History of arthrodesis History of cataract surgery History of tubal ligation History of appendectomy Family History Father Dysrhythmia CVD (cardiovascular disease) Mother HTN (hypertension) Breast cancer Bladder cancer Mental health disorder Maternal Grandfather Stroke Maternal Grandmother Stroke Paternal Grandfather No problems noted. Paternal Grandmother Liver cancer Social History Housing: House Are you a primary health care sanitary technician to a significant other at home: No Do you presently have visiting nurse or other home services: No Alcohol intake: current Alcohol intake frequency: holidays/special occasions only Patient Tobacco Use Status: Former Tobacco user Years Smoked: 1 yr e-Cigarette/Vaping Use: Never Used Second Hand Smoke Exposure: No Advance Directives Date on File: 11/15/23 service: No Current occupational status: retired Cognitive needs: No Hearing needs: No Vision needs: Yes Questionnaire Thrive Questionnaire Date Thrive assessed: 05/21/24 EVELINE-7 AMB Questionnaire EVELINE-7 Date EVELINE - 7 assessed: 11/15/23 Source: Developed by Drs. Rajinder San, Terri Martines, Donet Cannon and colleagues, with an educational simi from [employer]. Review of Systems Const All systems reviewed & are unremarkable except as noted in HPI and below Reports no additional complaints Eyes Reports no additional complaints ENT Reports no additional complaints and Reports Normal hearing present Card Reports no additional complaints Resp Reports no additional complaints GI Reports no additional complaints Reports no additional complaints Musc Reports no additional complaints Skin/Breast Reports system reviewed and no additional complaints, except as documented Neuro Reports no additional complaints, Reports Normal hearing present and Denies Abnormal speech present Psych Reports no additional complaints Endo Reports no additional complaints Juan Manuel/Lymph Reports no additional complaints Aller/Immun Reports no additional complaints Physical exam (Primary Care) Vital Signs: Last Vital Signs Temp 97.9 F 11/18/24 11:28 Pulse 71 11/18/24 11:28 Resp 16 11/18/24 11:28 BP 146/100 H 11/18/24 11:28 Pulse Ox 94 11/18/24 11:28 Oxygen Delivery Method Room Air 11/18/24 11:28 BMI result Body Mass Index 33.6 Tobacco/Smoking Status: Tobacco use Status Tobacco use date assessed 05/28/24 11/18/24 11:26 Patient Tobacco Use Status Former Tobacco user 11/18/24 11:26 e-Cigarette/Vaping Use Never Used 11/18/24 11:26 Thrive Assessment: Date of Thrive Assessment Date Thrive assessed 05/21/24 11/18/24 11:26 Const Other: Alert oriented x3, no acute distress noted Orientation/consciousness: patient oriented x3 [facility] Head: Yes normocephalic General nose exam: Normal external nose present Face and sinus: Yes face symmetric Mouth: Normal oral and palatal mucosa present, oropharynx normal and moist mucous membranes Eyes General: appearance normal, both eyes and all related structures Neck Neck: Yes full ROM, Yes no lymphadenopathy and Yes supple Thyroid: Thyroid normal Resp Auscultation: clear to auscultation bilaterally Cardio Other: S1-S2 present regular rate and rhythm GI Palpation (GI): Soft to palpation, nontender and no guarding Back/Spine/Pelvis Back: No back tenderness Neuro General: patient oriented x3, gait normal, tone normal, Normal light touch and pain sensation, no focal motor deficits and CN's II-XI intact bilaterally Cranial nerves: Yes Normal hearing present Speech: No Abnormal speech present Extrem General: Yes full ROM, Yes no joint enlargement, Yes no pedal edema and Yes normal gait Psych Appearance: grossly normal Mental Status: mental status grossly normal Speech and movement: Normal speech and movement present Affect: normal affect Attitude: cooperative Thought process: Normal thought process present Results Reviewed Results Reviewed: Name: Thelma Mireles Age/Sex: 79/F : 1945 Unit#: [id number] Attend Dr: Yvette Shaffer MD Re10/23/24 Status: DEP REF Location: [facility] Disch: SPEC : [id number] KIMBERLY: 10/23/24-947 STATUS: COMP REQ : [id number] RECD: 10/23/24-[address]: Yvette Shaffer MD COMP: 10/23/24-1357 ENTERED: 10/23/24-[address]: ORDERED: Met Prof Fast, AST, ALT, Lipid Panel, Vitamin D 25-OH, Free T4, TSH Test Result Flag Reference Sodium 140 135-145 mmol/L Potassium 4.0 3.3-5.1 mmol/L CL 108 96-108 mmol/L CO2 26 22-29 mmol/L Gap 10 L 12-20 BUN 23 H 9-16 mg/dL Creat 0.74 0.5-1.4 mg/dL eGFR > 60 Chronic Kidney Disease: Estimated GFR < 60 mL/min/1.73m2 Severe Kidney Disease: Estimated GFR < 15 mL/min/1.73m2 FBS 85 60-99 mg/dL CA 9.5 # 8.4-10.2 mg/dL AST (GOT) 22 5-31 U/L ALT (GPT) 17 0-31 U/L Triglyceride 72 <150 mg/dL Desirable Triglyceride: less than 150 mg/dL Borderline High Triglyceride 150-199 mg/dL High Triglyceride: 200-499 mg/dL Very High Triglyceride: greater than or equal to 5OO mg/dL Cholesterol 213 H <200 mg/dL Desirable Cholesterol: less than 200 mg/dL Borderline High Cholesterol: 200-239 mg/dL High Cholesterol: greater than 239 mg/dL LDL Calculated 131 H <100 mg/dL Desirable LDL: less than 100 mg/dL Near Optimal/Above Optimal LDL: 110-129 mg/dL Borderline High LDL: 130-159 mg/dL High LDL: 160-189 mg/dL Very High LDL: greater than or equal to 190 mg/dL HDL 68 >40 mg/dL Desirable HDL: greater than 40 mg/dL Note: This HDL assay may give artificially low results in patients with liver disease. Vitamin D 25-OH 47.6 >30 ng/mL Health Based Reference Values* < 20 ng/mL Deficient 20-30 ng/mL Insufficient > 30 ng/mL Sufficient *Gt PAL. N Engl J Med. 2007;357:266-280 There is no well-established upper level of normal vitamin D levels. Some laboratories use 50 ng/mL as an upper limit of normal. However, toxicity is patient-dependent and may occur at any level. Careful correlation with the patient's presentation is necessary and, if there is concern for vitamin D toxicity, treatment should be considered irrespective of the serum level. Care must be taken in interpreting Vitamin D results from different laboratories and methodologies. Published data demonstrated that results from patients undergoing hemodialysis may show a negative bias when tested with various automated 25-OH vitamin D assays when compared to LC-MS/MS. When testing samples from patients whose predominant form of Vitamin D is Vitamin D2, such as patients receiving Vitamin D2 supplementation, results that are subtherapeutic should be confirmed with another method such as LC-MS/MS. Free T4 1.06 0.71-1.85 ng/dL TSH 3rd Gen. 2.64 0.32-4.0 uIU/mL Note: A sustained TSH level above 2.5 uIU/mL may warrant further investigation. TSH 3rd Generation ([facility]) Coding Level of Care Code Est Pt Level 4 (78600) Complex EM visit Add On G2211 Diagnoses Dyslipidemia E78.5 Acquired hypothyroidism E03.9 Viral URI with cough J06.9 Assessment & Plan Assessment & Plan (1) Dyslipidemia: Code(s): E78.5 - Hyperlipidemia, unspecified Category: Medical Plan: Improvement in her total cholesterol and LDL cholesterol levels seen, continue with adherence to healthy eating habits and regular exercise is important in maintaining good cholesterol levels. (2) Acquired hypothyroidism: Code(s): E03.9 - Hypothyroidism, unspecified Category: Medical Plan: Thyroid levels are within normal limits, continued on current dose of levothyroxine 50 mcg daily in a.m. (3) Viral URI with cough: Code(s): J06.9 - Acute upper respiratory infection, unspecified Plan: Supportive measures with benzonatate capsules 200 mg per capsule to take 1 3 times a day as needed for cough, cough likely lingering effect of recent COVID infection Medications: Refilled benzonatate 200 mg PO TID PRN 14 caps 0RF cough
[2024-11-18 11:28] VITALS: BP 146/100; PULSE 71; RESP 16; TEMP 36.6; O2SAT 94; BMI 33.6
== END 2024-11-18 12:05 | disposition home or self-care (01) ==
LOC: HO.HMCC 10:58
PROVIDERS: PCP Internal Medicine; Visit Provider Internal Medicine
DX: E78.5 Hyperlipidemia, unspecified (principal); E03.9 Hypothyroidism, unspecified; J06.9 Acute upper respiratory infection, unspecified

== ENCOUNTER → 2024-11-26 12:40 | Outpatient (BNVA) | payer MEDICARE, SELFPAY | PROVIDERS: PCP Internal Medicine; Visit Provider Dietitian, Registered ==

== ENCOUNTER 2025-02-09 11:00 | Outpatient (AMB) | payer MEDICARE, SELFPAY ==
--- NOTE | 2025-02-09 11:19 | AM.OFFWIN_ITS ---
Intake Vital Signs 02/09/25 11:21 Height 5 ft 1 in Weight 178 lb BMI 33.6 BP 134/78 Blood Pressure Location Lt brachial Position Sitting Pulse 67 Pulse Source Pulse Oximeter Temp 98.2 F Temp Source Oral Pulse Oximetry (%) 100 Oxygen Delivery Method Room Air Intake Visit Reasons: EP lump on gland/throat? Intake Note: presents with discomfort to right tonsil area and right gland, feels like something is on her right tonsil Patient Tobacco Use Status: Former Tobacco user Allergies No Known Allergies Allergy (Verified 02/09/25 11:24) Medication List - Last Reconciled 02/09/25 by Tamika Che PA-C albuterol sulfate 90 mcg/actuation 1 puff inhalation QID PRN alendronate 70 mg PO QWEEK 90 days bupropion HCl XL 300 mg PO DAILY cholecalciferol (vitamin D3) 50 mcg PO DAILY citalopram 20 mg PO DAILY clobetasol 0.05% 1 appl topical DAILY PRN [glucosamin plus msm 500 mg PO DAILY] levothyroxine 50 mcg PO QAM magnesium oxide 500 mg PO DAILY omega-3 fatty acids-fish oil (Fish Oil Extra Strength) 1 cap PO DAILY sennosides (senna) 17.2 mg (2 x 8.6 mg) PO BEDTIME 30 days HPI HPI Comments History of Present Illness Details History - The patient is an 80-year-old female p resenting with a sensation of a lump in the throat and concerns about hearing loss. - The sensation of a lump in the throat has been causing intermittent coughing, particularly at night. - The patient denies any fever or signif icant lymph node swelling, although there was transient pain on the right side of the neck. - Bilateral hearing loss has been noted, with the patient expressing difficulty in hearing and the need for hearing aid evaluation. - Earwax accumulation was observed, with mild fluid in the left ear, causing discomfort. - The patient has no known seasonal kailey rgies but exhibits symptoms consistent with allergic rhinitis, including cobblestoning in the throat. - The patient is scheduled for knee repl acement surgery and is concerned about any potential delays due to her current symptoms. Physical Exam Physical Exam General: Cooperative, healthy appearing, comfortable, no acute distress and well developed Orientation: Patient oriented x3 Limitations: No limitations Head: Normal to inspection Ears: External ears normal bilaterally, TM's with impacted cerumen bilaterally, some wax removed, left ear to be flushed Face and sinus: Normal facial exam, no sinus pain Neck: Normal visual inspection, no tenderness, no swelling of lymph nodes Respiratory: Normal respiratory effort and able to speak in complete sentences, posterior oropharynx with cobblestoning Skin: No rashes or lesions noted Neuro: Patient oriented x3 Extremities: normal to inspection [facility] Medical History Hearing deficit Dense breast tissue on mammogram Irritable bowel syndrome with constipation Depression Dyslipidemia Osteopenia of left femoral neck Acquired hypothyroidism Primary osteoarthritis Surgical History H/O colonoscopy History of arthrodesis History of cataract surgery History of tubal ligation History of appendectomy Family History Father Dysrhythmia CVD (cardiovascular disease) Mother HTN (hypertension) Breast cancer Bladder cancer Mental health disorder Maternal Grandfather Stroke Maternal Grandmother Stroke Paternal Grandfather No problems noted. Paternal Grandmother Liver cancer Social History Housing: House Are you a primary childcare attendant to a significant other at home: No Do you presently have visiting nurse or other home services: No Alcohol intake: current Alcohol intake frequency: holidays/special occasions only Patient Tobacco Use Status: Former Tobacco user Years Smoked: 1 yr e-Cigarette/Vaping Use: Never Used Second Hand Smoke Exposure: No Advance Directives Date on File: 11/15/23 service: No Current occupational status: retired Cognitive needs: No Hearing needs: No Vision needs: Yes Review of Systems Const All systems reviewed & are unremarkable except as noted in HPI and below Physical Exam Vital Signs: Last Vital Signs Temp 98.2 F 02/09/25 11:21 Pulse 67 02/09/25 11:21 BP 134/78 02/09/25 11:21 Pulse Ox 100 02/09/25 11:21 Oxygen Delivery Method Room Air 02/09/25 11:21 BMI result Body Mass Index 33.6 Office Procedures Cerumen Removal From which ear canal was the cerumen removed: bilateral Removal: irrigation (Able to remove from the left ear, EAC clear) and otoscope w/curette (Able to remove from the right ear, EAC clear) Notes: patient tolerated procedure well, no complications and ear canal clear [id number] Irrigation/Lavage Assessment & Plan Assessment & Plan (1) Bilateral impacted cerumen: Code(s): H61.23 - Impacted cerumen, bilateral Plan: - Able to irrigate left side and manually remove the right side, bilateral EACs clear. Patient was informed and verbally consented to the use of an ambient scribe for clinic note documentation during this visit. (2) Seasonal allergic reaction: Code(s): J30.2 - Other seasonal allergic rhinitis Plan: - Slight fluid behind the right TM, cobblestoning, recommended she start a daily allergy pill. - Consider seasonal allergies as a contributing factor; recommend daily antihistamine for two weeks. - Negative rapid strep test; no bacterial infection suspected. Orders: Orders AMB Cerumen Removal Today H61.23 - Impacted cerumen, bilateral AMB Rapid Strep Screen Today Z13.9 - Encounter for screening, unspecified Coding Level of Care Code Est Pt Level 4 (24281) Diagnoses Bilateral impacted cerumen H61.23 Seasonal allergic reaction J30.2 CPT Codes Office Procedure - CPT: 22157-Wwe Irrigation/Lavage ([id number])
[2025-02-09 11:21] VITALS: BP 134/78; PULSE 67; TEMP 36.8; O2SAT 100; BMI 33.6
== END 2025-02-09 12:04 | disposition home or self-care (01) ==
PROVIDERS: PCP Internal Medicine; Visit Provider Physician Assistant
DX: H61.22 Impacted cerumen, left ear (principal); H61.21 Impacted cerumen, right ear; J30.2 Other seasonal allergic rhinitis; R07.0 Pain in throat

== ENCOUNTER → 2025-02-09 11:00 | Outpatient (BNVA) | payer MEDICARE, SELFPAY | PROVIDERS: PCP Internal Medicine; Visit Provider Physician Assistant | DX: H61.23 Impacted cerumen, bilateral (principal); J30.2 Other seasonal allergic rhinitis | CPT/HCPCS: 69209; 69210; 87880; 99212 ==

== ENCOUNTER 2025-02-26 10:00 | Outpatient (RCR) | payer MEDICARE, SELFPAY ==
--- NOTE | 2025-01-26 11:57 | MHC.PT.EP ---
[facility] [place] Office [place] [facility] [place] Office [address] Meche Sharp [address] [phone] F: [phone] F: [phone] F: [phone] F: [phone] Physical Therapy Plan of Care Date of Evaluation: 01/26/25 Date of Surgery: Diagnosis: This is an 79 yo female presenting to skilled PT with a script for unsteadiness on feet, OA L knee. Assessment: This is an 79 yo female presenting to skilled PT with a script for unsteadiness on feet. Patient is well known to this facility for this same dx. She has done conservative measures for so long and will now be undergoing a L TKR in a month in [place]. She has had swelling and pain now for many years. Pain is located throughout the knee joint, patella and fibula. Pain increases with knee flexion and extension, walking, standing and stairs. Pain is sharp, knee gives out and she reports balance is terrible. She would like to work on strengthening pre-op. Assessment reveals pain that ranges from up to a 8/10 at the worst. Patient demos decreased B LE ROM, strength of B LE's, TTP at fibula, patella and knee joint lines and impaired posture with forward head, increased thoracic kyphosis and rounded shoulders as well as decreased balance, gait and impaired functional tolerance. Based on functional limitations, impaired QOL and pain tolerance patient is a fair candidate for skilled PT 2x/wk for 4wks as he did not improve/meet his goals the last time. Frequency and Duration: The patient will be seen 2x/wk for 4wks Short Term Goals: Pt will demonstrate improved postural awareness and understanding of core engagement with supine and standing tasks without cues throughout session to improve balance safety as well as improve strength in 2 weeks. Pt will continue to reinforce precautions, sitting, standing and ADL modifications with proper body mechanics and prevent falls in 2 wks. Pt will tolerate 10 SLR's without a break and with proper quad set. [employer] Goals: Pt will demonstrate improved outcome measure by 5 points in 4 weeks for improved functional mobility. Pt will be I in HEP and compliant in 4wks Pt will understand pre op and post op precautions, PT expectations, transfers and stairs. Treatment Plan: Modalities to reduce pain, spasms and effusion. Manual therapy to restore motion and function. Therapeutic exercise to improve strength and flexibility. Neuromuscular re-education for posture and balance. Therapeutic activities to return to functional activities of daily living. Electronically signed by: Lisa Hooper PT Please sign and return to therapist. Thank you for your referral.
--- NOTE | 2025-03-23 11:00 | MHC.PT.DC ---
[facility] [place] Office [place] Office [place] Office [address] Meche Sharp [address] [phone] F: [phone] F: [phone] F: [phone] F: [phone] Physical Therapy Discharge Report Diagnosis: This is an 79 yo female presenting to skilled PT with a script for unsteadiness on feet, OA L knee. Date of Surgery: Date of Evaluation: 01/26/25 Date of Discharge: 03/23/25 Treatments to Date: 9 Cancellations to Date: 0 No Shows to Date: 0 Discharge Status: Achieved Goals Independent with HEP Patient Elected to Stop Discharge Summary: 02/26: Patient has had 9 prehab visits. She is I in her program, understands what pre op and post op PT expectations are and ready for her surgery next week. At this time patient will undergo a new PT evaluation when medically ready in the outpatient setting. Chart DC'd, patient I in HEP and appropriate for DC at this time. Electronically signed by: Lisa Hooper, PT Please sign and return to therapist. Thank you for your referral.
== END 2025-03-23 11:00 | disposition home or self-care (01) ==
LOC: HO.PTCHIC 10:00
PROVIDERS: PCP Internal Medicine; Visit Provider Internal Medicine
DX: R26.81 Unsteadiness on feet (principal); M19.91 Primary osteoarthritis, unspecified site
CPT/HCPCS: 97110; 97162

== ENCOUNTER → 2025-03-09 10:13 | Outpatient (BNVA) | payer MEDICARE, SELFPAY | PROVIDERS: PCP Internal Medicine | DX: Z98.890 Other specified postprocedural states (principal) | CPT/HCPCS: 99211 ==

== ENCOUNTER 2025-04-14 16:24 | Outpatient (AMB) | payer MEDICARE, SELFPAY ==
[2025-04-14 16:29] VITALS: BP 140/80; PULSE 86; RESP 16; TEMP 36.9; O2SAT 95; BMI 33.4
--- NOTE | 2025-04-14 16:29 | MHC.OFFWIV ---
Intake Vital Signs 04/14/25 16:29 Height 5 ft 1 in Weight 177 lb BMI 33.4 BP 140/80 H Respiration 16 Pulse 86 Pulse Source Pulse Oximeter Temp 98.5 F Temp Source Oral Pulse Oximetry (%) 95 Oxygen Delivery Method Room Air Intake Visit Reasons: ep cold cough fever Patient Tobacco Use Status: Former Tobacco user Allergies No Known Allergies Allergy (Verified 04/14/25 16:34) HPI HPI Comments History of Present Illness Details History - The patient is an 80-year-old female presenting with a cough and congestion. - Symptoms began yesterday with a runny nose and sore throat, alternating sides. - Experienced a severe headache last night, disrupting sleep. - Reports ear discomfort and possible fever last night. - Frequent use of tissues due to nasal discharge and postnasal drip when lying back. - Took Robitussin with slight relief and oxycodone for pain relief due to recent knee replacement. - Underwent knee replacement six weeks ago, experienced significant pain requiring oxycodone. - She denies fever, chills, CP, SOB, abd pain, n/v/d, dizziness. - She has no sick contacts. - She has no recent travel or smoking. Physical Exam General: Cooperative, healthy appearing, comfortable and no acute distress Orientation/consciousness: Patient oriented x3 Limitations: No limitations Head: Normal to inspection Ears: Hearing grossly normal bilaterally, external ears normal and TM's normal bilaterally. Patient reports ear bothering them, but no infection noted. Nose: Normal external nose present, normal nares present, and runny nose noted. Face and sinus: Sinuses nontender to palpation. Postnasal drip noted. Mouth: Normal oral and palatal mucosa present and moist mucous membranes noted. Throat: Tonsils normal. Uvula is midline. Posterior oropharynx with erythema and no exudates. Sore throat reported. Eyes: Appearance normal, both eyes and all related structures Neck: Normal visual inspection, full ROM. No lymphadenopathy noted. Respiratory: Clear to auscultation bilaterally. Normal respiratory effort, able to speak in complete sentences. No respiratory distress, not tachypneic, no tripod positioning and no use of accessory muscles. Cardiovascular: Regular rate and rhythm. Normal S1 and S2 Skin: No rashes or lesions noted Patient was informed and verbally consented to the use of an ambient scribe for clinic note documentation during this visit [facility] Medical History Hearing deficit Dense breast tissue on mammogram Irritable bowel syndrome with constipation Depression Dyslipidemia Osteopenia of left femoral neck Acquired hypothyroidism Primary osteoarthritis Surgical History H/O colonoscopy History of arthrodesis History of cataract surgery History of tubal ligation History of appendectomy Family History Father Dysrhythmia CVD (cardiovascular disease) Mother HTN (hypertension) Breast cancer Bladder cancer Mental health disorder Maternal Grandfather Stroke Maternal Grandmother Stroke Paternal Grandfather No problems noted. Paternal Grandmother Liver cancer Social History Housing: House Are you a primary acute care clinical nurse specialist to a significant other at home: No Do you presently have visiting nurse or other home services: No Alcohol intake: current Alcohol intake frequency: holidays/special occasions only Patient Tobacco Use Status: Former Tobacco user Years Smoked: 1 yr e-Cigarette/Vaping Use: Never Used Second Hand Smoke Exposure: No Advance Directives Date on File: 11/15/23 service: No Current occupational status: retired Cognitive needs: No Hearing needs: No Vision needs: Yes Review of Systems Const All systems reviewed & are unremarkable except as noted in HPI and below Physical Exam Vital Signs: Last Vital Signs Temp 98.5 F 04/14/25 16:29 Pulse 86 04/14/25 16:29 Resp 16 04/14/25 16:29 BP 140/80 H 04/14/25 16:29 Pulse Ox 95 04/14/25 16:29 Oxygen Delivery Method Room Air 04/14/25 16:29 BMI result Body Mass Index 33.4 Assessment & Plan Assessment & Plan (1) Sore throat: Code(s): J02.9 - Acute pharyngitis, unspecified (2) Cough: Code(s): R05.9 - Cough, unspecified Qualifiers: Cough type: acute Qualified Code(s): R05.1 - Acute cough Plan Most likely URI vs covid vs flu vs RSV vs viral illness rapid strep is negative plan - tylenol or motrin as needed for pain or fever - diet as tolerated - drink lots of fluids - Manage symptoms with cough medicine and decongestants. - Await results from strep culture and respiratory panel to rule out COVID, RSV, or flu. - will call her with the results - follow up with PCP. Orders: Orders Resp Pathogen Panel - [facility] Today J06.9 - Acute upper respiratory infection, unspecified AMB Rapid Strep Screen Today J02.9 - Acute pharyngitis, unspecified Medications: New fluticasone propionate 50 mcg/actuation administer into each nostril 1 spray intranasal Q12H 16 grams 0RF benzonatate 100 mg PO bid-tid PRN 21 caps 0RF Cough 7 days cetirizine-pseudoephedrine 5-120 mg ER 1 tab PO BID 14 tabs 0RF 7 days Coding Level of Care Code Est Pt Level 3 (79449) Diagnoses Sore throat J02.9 Acute cough R05.1 Cough type: acute
--- OUTSIDE RECORDS SUMMARY | 2025-04-14 19:07 | XMS_ITS | Clinical Summary ---
Author Organization [facility]ly [facility] Address [address] [place] [phone] Phone Care Team Providers Care [employer] Ship Name Role Phone Yvette Shaffer MD Primary Care Provider Allergies No known active allergies Medications cholecalciferol (VITAMIN D3) 2,000 unit capsule Take 2,000 Units by mouth daily. Active calcium carbonate (CALCIUM 600 ORAL)Indication s:few times a week Take 1 tablet by mouth. Indications: few times a week Active estradioL (ESTRACE) 0.01 % (0.1 mg/gram) vaginal cream Place 1 g vaginally. 3 times a week Active citalopram (CELEXA) 20 MG tablet Take 20 mg by mouth daily. Active raloxifene (EVISTA) 60 mg tablet Take 60 mg by mouth daily. Active fluticasone propionate (FLONASE) 50 mcg/actuation nasal spray 1 spray by Nasal route daily as needed. Active levothyroxine (SYNTHROID, LEVOTHROID) 50 MCG tablet Take 50 mcg by mouth every morning. Active cyclobenzaprine (FLEXERIL) 5 MG tablet Take 5 mg by mouth nightly at bedtime as needed. Active buPROPion (WELLBUTRIN XL) 300 MG ER 24 hr tablet Take 300 mg by mouth every morning. Active TURMERIC ORAL Take by mouth. Active ibuprofen (ADVIL,MOTRIN) 200 MG tabletIndicatio ns:600-800 mg as needed Take by mouth. Indications: 600-800 mg as needed Active docusate sodium (COLACE) 100 MG capsuleIndicati ons:2-3 a day Take by mouth. Indications: 2-3 a day Active levocetirizine (XYZAL) 5 MG tablet Take 1 tablet by mouth daily as needed. 06/05/2021 Active Active Problems Problem Noted Date Diagnosed Date NSAID long-term use 07/06/2021 Assessment & Plan (07/06/2021 11:17 AM EST): Take the lowest dose, with least frequency, for shortest time. Remember to take it always with food. Favor topical over oral preparations. Anserine bursitis 12/02/2020 Assessment & Plan (12/12/2020 11:32 AM EDT): Use warm pack for 10-15 minutes followed by gentle, regular exercising as educated by PT and use topical cream versus patch such as Arnica, Biofreeze, Voltaren versus Salonpas or IcyHot 2-3 times daily and if needed at bedtime. Acquired pronation deformity of left foot 2020 Assessment & Plan (12/12/2020 11:38 AM EDT): Continue well fitting, supportive shoes. If ongoing problems may need to consider evaluation at [facility] On SSRI therapy 05/07/2020 Assessment & Plan (03/03/2021 11:38 AM EDT): Monitor for mood swings, increased muscle rigidity and temperature intolerance. Assessment & Plan (12/02/2020 11:23 AM EDT): Monitor for mood swings, increased muscle rigidity and temperature intolerance. Assessment & Plan (05/07/2020 10:28 AM EDT): Monitor for mood swings, increased muscle rigidity and temperature intolerance. Use of raloxifene (Evista) 04/09/2020 Assessment & Plan (07/06/2021 11:16 AM EST): Carefully continue daily intake along with daily weightbearing exercises. Assessment & Plan (03/03/2021 11:40 AM EDT): Carefully continue daily intake along with daily weightbearing exercises. Get interval BMD in December 2020 to make sure no progressive bone loss develops. Assessment & Plan (05/07/2020 10:26 AM EDT): Carefully continue daily intake along with daily weightbearing exercises. Get interval BMD in December 2020 to make sure no progressive bone loss develops. Assessment & Plan (04/12/2020 9:39 AM EDT): Carefully continue daily intake along with daily weightbearing exercises. Get interval BMD in December 2020 to make sure no progressive bone loss develops. Primary osteoarthritis involving multiple joints 03/18/2020 Assessment & Plan (07/06/2021 11:15 AM EST): Joint protection, energy conservation. Gentle, regular exercise routine. Avoid falls, injuries, overuse. Use splints, assistive devices as educated in OT and PT. She may benefit from using compression gloves during the night to reduce swelling in hands. Keep body weight in ideal range for her height. Well fitting, supportive shoes. She may benefit from topical cream such as Arnica, Biofreeze, Aspercreme, Traumeel versus medicated patches such as salonpas, icy hot patch 2-3 times daily and if necessary at bedtime x 3 weeks. She wanted my opinion about Arthritis Advisor from [facility] and [facility]ritis Today from [facility]. I agree that both are reputable sources of information on arthritis. She may find lots of other information while going on their websites. Call back if worse, ready for steroid injection or with questions. Assessment & Plan (03/17/2021 10:14 AM EDT): Joint protection, energy conservation. Gentle, regular exercise routine. Avoid falls, injuries, overuse. Use splints, assistive devices as educated in OT and PT. She may benefit from using compression gloves during the night to reduce swelling in hands. Keep body weight in ideal range for her height. Well fitting, supportive shoes. She may benefit from topical cream such as Arnica, Biofreeze, Aspercreme, Traumeel versus medicated patches such as salonpas, icy hot patch 2-3 times daily and if necessary at bedtime x 3 weeks. She wanted my opinion about Arthritis Advisor from [facility] and [facility] Today from [facility]. I agree that both are reputable sources of information on arthritis. She may find lots of other information while going on their websites. Call back if worse, ready for steroid injection or with questions. Assessment & Plan (12/02/2020 11:22 AM EDT): Joint protection, energy conservation. Gentle, regular exercise routine. Avoid falls, injuries, overuse. Use splints, assistive devices as educated in OT and PT. Keep body weight in ideal range for her height. Well fitting, supportive shoes. She may benefit from topical cream such as Arnica, Biofreeze, Aspercreme, Traumeel versus medicated patches such as salonpas, icy hot patch 2-3 times daily and if necessary at bedtime x 3 weeks. She wanted my opinion about Arthritis Advisor from [facility] and [facility] Today from [facility]. I agree that both are reputable sources of information on arthritis. She may find lots of other information while going on their websites. Call back if worse, ready for steroid injection or with questions. Assessment & Plan (05/07/2020 10:24 AM EDT): Joint protection, energy conservation. Gentle, regular exercise routine. Avoid falls, injuries, overuse. Use splints, assistive devices as educated in OT and PT. Keep body weight in ideal range for her height. Well fitting, supportive shoes. She may benefit from topical cream such as Arnica, Biofreeze, Aspercreme, Traumeel versus medicated patches such as salonpas, icy hot patch 2-3 times daily and if necessary at bedtime x 3 weeks. She wanted my opinion about Arthritis Advisor from [facility] and [facility] from [facility]. I agree that both are reputable sources of information on arthritis. She may find lots of other information while going on their websites. Call back if worse, ready for steroid injection or with questions. Assessment & Plan (04/12/2020 9:46 AM EDT): Joint protection, energy conservation. Gentle, regular exercise routine. Avoid falls, injuries, overuse. Use splints, assistive devices as educated in OT and PT. Keep body weight in ideal range for her height. Well fitting, supportive shoes. Get yearly influenza vaccine by mid April 2020. She may benefit from topical cream such as Arnica, Biofreeze, Aspercreme, Traumeel versus medicated patches such as salonpas, icy hot patch 2-3 times daily and if necessary at bedtime x 3 weeks. She wanted my opinion about Arthritis Advisor from [facility] and [facility] Today from [facility]. I agree that both are reputable sources of information on arthritis. She may find lots of other information while going on their websites. Call back if worse, ready for steroid injection or with questions. Assessment & Plan (03/21/2020 7:00 PM EDT): Joint protection, energy conservation. Gentle, regular exercise routine. Avoid falls, injuries, overuse. Use splints, assistive devices as educated in OT and PT. Keep body weight in ideal range for her height. She may benefit from topical cream such as Arnica, Biofreeze, Aspercreme, Traumeel versus medicated patches such as salonpas, icy hot patch 2-3 times daily and if necessary at bedtime x 3 weeks. Call back if worse, ready for steroid injection or with questions. Pain in both hands 11/27/2019 Assessment & Plan (11/27/2019 3:59 PM EDT): Joint protection, energy conservation. Gentle, regular exercise routine as educated by OT. Avoid falls, injuries, overuse. Splinting, assistive devices. Gradually restart knitting as tolerated. She may benefit from topical cream such as Arnica, Biofreeze, Aspercreme versus medicated patches such as salonpas, icy hot patch 2-3 times daily and if necessary at bedtime x 3 weeks. Right foot pain 11/27/2019 Assessment & Plan (11/27/2019 4:07 PM EDT): Avoid falls, injuries, overuse. Well fitting, supportive shoes. Toe spacers versus sheep wool in between the toes to reduce pressure and calluses formation. Left foot pain 11/27/2019 Assessment & Plan (11/27/2019 3:43 PM EDT): Avoid falls, injuries, overuse. Well fitting, supportive shoes. Toe spacers versus sheep wool in between the toes to reduce pressure and calluses formation. Other insomnia 11/27/2019 Assessment & Plan (11/27/2019 3:58 PM EDT): Sleep hygiene. Listen to relaxation tapes prior to bed rest every nightx 8-12 weeks. Take a nice warm shower or a bath with 2-3 drops of essential oil of lavender at the end. Consider taking melatonin 2-3 mg at night. If not better or worse despite optimal efforts may need to consider formal sleep study Osteopenia of multiple sites 11/27/2019 Assessment & Plan (07/29/2021 9:36 AM EST): Continue Evista, proper calcium and vitamin D supplementation. Fall and fracture prevention strategies. Daily weightbearing exercises. Consider adding 1-2 pounds weights to her wrists and ankles while walking in view of progressing osteopenia. She was asking questions regarding sources of calcium and vitamin D in a diet for which I am sending her pamphlets on calcium and vitamin D rich diet in the mail. Assessment & Plan (03/03/2021 11:37 AM EDT): Continue Evista, proper calcium and vitamin D supplementation. Fall and fracture prevention strategies. Daily weightbearing exercises. She was asking questions regarding sources of calcium and vitamin D in a diet for which I am sending her pamphlets on calcium and vitamin D rich diet in the mail. Assessment & Plan (12/02/2020 11:22 AM EDT): Continue Evista, proper calcium and vitamin D supplementation. Fall and fracture prevention strategies. Daily weightbearing exercises. She was asking questions regarding sources of calcium and vitamin D in a diet for which I am sending her pamphlets on calcium and vitamin D rich diet in the mail. Assessment & Plan (05/07/2020 10:26 AM EDT): Continue Evista, proper calcium and vitamin D supplementation. Fall and fracture prevention strategies. Daily weightbearing exercises. She was asking questions regarding sources of calcium and vitamin D in a diet for which I am sending her pamphlets on calcium and vitamin D rich diet in the mail. Assessment & Plan (04/12/2020 9:46 AM EDT): Continue Evista, proper calcium and vitamin D supplementation. Fall and fracture prevention strategies. Daily weightbearing exercises. She was asking questions regarding sources of calcium and vitamin D in a diet for which I am sending her pamphlets on calcium and vitamin D rich diet in the mail. Assessment & Plan (03/18/2020 2:50 PM EDT): Continue Evista, proper calcium and vitamin D supplementation. Fall and fracture prevention strategies. Daily weightbearing exercises. Assessment & Plan (11/27/2019 4:05 PM EDT): Continue Evista, proper calcium and vitamin D supplementation. Fall and fracture prevention strategies. Daily weightbearing exercises. Acquired hypothyroidism 11/27/2019 Assessment & Plan (05/07/2020 10:26 AM EDT): Continue Synthroid as prescribed. Follow-up with prescribing physician as scheduled. Assessment & Plan (04/12/2020 9:35 AM EDT): Continue Synthroid as prescribed. Follow-up with prescribing physician as scheduled. Assessment & Plan (03/18/2020 2:49 PM EDT): Continue Synthroid as prescribed. Follow-up with prescribing physician as scheduled. Assessment & Plan (11/27/2019 2:19 PM EDT): Continue Synthroid as prescribed. Follow-up with prescribing physician as scheduled. Recurrent major depressive disorder, in partial remission 11/27/2019 Assessment & Plan (03/18/2020 2:50 PM EDT): Continue antidepressive therapy as prescribed and follow closely with prescribing physician. Keep regular hobbies/favorite activities. Regular relaxation/meditation sessions. If not better or worse may need to consider personal psychotherapy. Assessment & Plan (11/27/2019 4:00 PM EDT): Continue antidepressive therapy as prescribed and follow closely with prescribing physician. Keep regular hobbies/favorite activities. Regular relaxation/meditation sessions. If not better or worse may need to consider personal psychotherapy. Chronic pain in right foot 11/27/2019 Assessment & Plan (11/27/2019 4:04 PM EDT): Avoid falls, injuries, overuse. Well fitting, supportive shoes. Toe spacers versus sheep wool in between the toes to reduce pressure and calluses formation. Chronic pain in left foot 11/27/2019 Family History Medical History Relation Comments Dysrhythmia Father Heart disease Father Stroke Maternal Grandfather Stroke Maternal Grandmother Bladder Cancer Mother Breast cancer Mother Hypertension Mother Liver cancer Paternal Grandmother Relation Status Comments Father Maternal Grandfather Maternal Grandmother Mother Paternal Grandfather Paternal Grandmother Social History Tobacco Use Types Packs/Day Years Used Date Smoking Tobacco: Never Smokeless Tobacco: Never Alcohol Use Standard Drinks/Week Comments Yes 0 (1 standard drink = 0.6 oz pur e alcohol) Education Answer Date Recorded Are you interested in more education? Not on rian e 11/24/2022 Are you concerned about learning? Not on file 11/24/2022 No 11/24/2022 No 11/24/2022 Digital Access Answer Date Recorded No 12/23/2022 No 12/23/2022 Reliable internet access at home? Not on file 12/23/2022 Device with a working camera? Not on file Comments Unknown Sex and Gender Information Value Date Recorded Sex Assigned at Not on file Legal Sex Female 10:10 PM EDT Gender Identity Not on file Sexual Orientation Not on file Last Filed Vital Signs Vital Sign Reading Time Taken Comments Blood Pressure 132/72 07/06/2021 10:48 AM EST Pulse - - Temperature - - Respiratory Rate - - Oxygen Saturation - - Inhaled Oxygen Concentration - - Weight 72.7 kg (160 lb 3.2 oz) 07/06/20 10:48 AM EST with boots Height 157.5 cm (5' 2 ) 07/06/2021 10:4 8 AM EST Body Mass Index 29.3 07/06/2021 10:48 AM EST Plan of Treatment Health Maintenance Due Date Last Done Comments TSH LEVEL 1944 DEPRESSION SCREENING 1956 OSTEOPOROSIS SCREENING INITIAL (ONE-TIME) 01/31/2009 RSV VACCINE (1 - 1-dose 75+ series) 01/31/2019 INFLUENZA VACCINE (#1) 2025 , 03/15/2020, 05/12/2019, Additional history exists COVID-19 VACCINE ( season) 2025 04/27/2021, 09/22/2020, 09/01/2020 Adult Td,Tdap Booster 05/04/2025 05/04/2015 PNEUMOCOCCAL VACCINES (50+ years) Completed 07/01/2015, 06/04/2009 ZOSTER VACCINES Completed 07/15/2019, 04/02/2019 HEPATITIS A VACCINES Aged Out No long er eligible based on patient's age to complete this topic HIB VACCINES Aged Out No longer eligi ble based on patient's age to complete this topic MENINGOCOCCAL VACCINES (ACWY) Aged Out No longer eligible based on patient's age to complete this topic MENINGOCOCCAL VACCINES (B) Aged Out N o longer eligible based on patient's age to complete this topic Medical Devices Not on file Insurance [employer] PPO MEDICARE REPLACEMENT A[employer] PPO MEDICARE REPLACEMENT [employer] PPO MEDICARE REPLACEMENT [employer] PPO MEDICARE REPLACEMENT [employer] PPO MEDICARE REPLACEMENT [employer] PPO MEDICARE REPLACEMENT [employer] PPO MEDICARE REPLACEMENT [employer] PPO MEDICARE REPLACEMENT [employer] PPO MEDICARE REPLACEMENT Care Teams Electrician Ship Relationship Specialty Start Date End Date Yvette Shaffer MD [address] [place] [id number] PCP - General Internal Medicine 12/30/21 Additional Source Comments The information contained in this document represents components of the legal health record. It is not the complete legal health record.[facility]
== END 2025-04-14 17:03 | disposition home or self-care (01) ==
PROVIDERS: PCP Internal Medicine; Visit Provider Physician Assistant Medical
DX: J02.9 Acute pharyngitis, unspecified (principal); R05.1 Acute cough

== ENCOUNTER → 2025-04-14 16:24 | Outpatient (BNVA) | payer MEDICARE, SELFPAY | PROVIDERS: PCP Internal Medicine; Visit Provider Physician Assistant Medical | DX: R05.1 Acute cough (principal); J02.9 Acute pharyngitis, unspecified | CPT/HCPCS: 99212 ==

== ENCOUNTER 2025-04-27 13:15 | Outpatient (AMB) | payer MEDICARE, SELFPAY ==
[2025-04-27 13:34] VITALS: BP 130/78; PULSE 72; O2SAT 97; BMI 34.2
--- NOTE | 2025-04-27 13:34 | MHC.PC.OV ---
Vital Signs 04/27/25 13:34 Height 5 ft 1 in Weight 181 lb BMI 34.2 BP 130/78 Blood Pressure Location Rt brachial Position Sitting Pulse 72 Pulse Source Pulse Oximeter Pulse Oximetry (%) 97 Oxygen Delivery Method Room Air Intake Visit Reasons: walk in follow up Allergies No Known Allergies Allergy (Verified 04/27/25 14:09) Medication List - Last Reconciled 04/27/25 by Yvette Shaffer MD alendronate 70 mg PO QWEEK 90 days bupropion HCl XL 300 mg PO DAILY cholecalciferol (vitamin D3) 50 mcg PO DAILY citalopram 20 mg PO DAILY clobetasol 0.05% 1 appl topical DAILY PRN [glucosamin plus msm 500 mg PO DAILY] levothyroxine 50 mcg PO QAM magnesium oxide 500 mg PO DAILY omega-3 fatty acids-fish oil (Fish Oil Extra Strength) 1 cap PO DAILY sennosides (senna) 17.2 mg (2 x 8.6 mg) PO BEDTIME 30 days Tobacco use date assessed: 04/27/25 Fall risk assessment: No Falls in past year Last assessed Fall Risk: 04/27/25 Dental Screening Dental Screen Date: 04/27/25 Did you have a dental visit in the last 12 months?: Yes Did you have a dental problem in the last 6 months where you did not have access to dental care?: No Was dental information given to patient?: Patient has dentist HPI walk in follow up HPI Details 80-year-old female recently seen in the walk-in 2 weeks ago and treated for an acute upper respiratory infection, here today complaining of a lingering cough and itching. The cough began approximately two weeks ago, initially suspected to be viral in origin, with enterovirus and rhinovirus identified, but not COVID-19, RSV, or influenza. The cough is predominantly nocturnal, described as sounding like a dog barking, and is exacerbated by lying down and certain foods irritating the throat. The patient reports no significant postnasal drip but experiences throat irritation rather than pain, which triggers coughing. Also has been complaining of frontal headaches but has been afebrile, with no shortness of breath. The patient also reports generalized itching, mainly under the breasts and in the groin area, with an erythematous rash present The patient has a history of right knee replacement surgery approximately two months ago, which has limited her physical activity to knee exercises. [facility] Medical History (Updated 04/28/25 @ 00:21 by Yvette Shaffer MD) Pruritic intertrigo Hearing deficit Dense breast tissue on mammogram Irritable bowel syndrome with constipation Depression Dyslipidemia Osteopenia of left femoral neck Acquired hypothyroidism Primary osteoarthritis Surgical History H/O colonoscopy History of arthrodesis History of cataract surgery History of tubal ligation History of appendectomy Family History Father Dysrhythmia CVD (cardiovascular disease) Mother HTN (hypertension) Breast cancer Bladder cancer Mental health disorder Maternal Grandfather Stroke Maternal Grandmother Stroke Paternal Grandfather No problems noted. Paternal Grandmother Liver cancer Social History Housing: House Are you a primary customer care team coach to a significant other at home: No Do you presently have visiting nurse or other home services: No Alcohol intake: current Alcohol intake frequency: holidays/special occasions only Patient Tobacco Use Status: Former Tobacco user Years Smoked: 1 yr e-Cigarette/Vaping Use: Never Used Second Hand Smoke Exposure: No Advance Directives Date on File: 11/15/23 service: No Current occupational status: retired Cognitive needs: No Hearing needs: No Vision needs: Yes Questionnaire PHQ-9 Over the last 2 weeks, how often have you been bothered by any of the following problems? 1. Little interest or pleasure in doing things: several days 2. Feeling down, depressed, or hopeless: not at all 3. Trouble falling or staying asleep, or sleeping too much: several days 4. Feeling tired or having little energy: several days 5. Poor appetite or overeating: not at all 6. Feeling bad about yourself - or that you are a failure or have let yourself or your family down: not at all 7. Trouble concentrating on things, such as reading the newspaper or watching television: several days 8. Moving or speaking so slowly that other people could have noticed. Or the opposite - being so fidgety or restless that you have been moving around a lot more than usual: not at all 9. Thoughts that you would be better off or of hurting yourself in some way: not at all Total score: 4 Depression Screening Interpretation: Positive (STABLE AND CONTROLLED ON CITALOPRAM and bupropion, followed by Dr. Ayala Butler) Depression Screening Follow-up: Existing condition, In treatment and Community Mental Health Worker F/U Depression Screening Done: Yes 62431 - PHQ-9 Billing: Yes Source: Developed by Drs. Rajinder San, Terri Martines, Donte Cannon and colleagues, with an educational simi from [employer]. Thrive Questionnaire Date Thrive assessed: 10/20/24 I am a: Patient What is your living situation today?: I have a steady place to live Within the past 12 months, did the food you bought not last and you didn't have the money to get more?: Never true Within the past 12 months, did you worry whether your food would run out before you got money to buy more?: Never true Do you have trouble paying for medicines?: No Do you have trouble getting transportation to medical appointments?: No Do you have trouble paying your heating and electricity bill?: No Do you have trouble taking care of your child, family member or friend?: No Do you have trouble with day-to-day activities such as bathing, preparing meals, shopping, managing finances, etc.?: No Are you currently unemployed and looking for a job?: No Are you interested in more education?: No Please select the resources that you would like help with: None Currently or been in a relationship where the following occur: No concerns reported THRIVE Score: 0 AUDIT C Alcohol Use Questionnaire (AUDIT-C) 1. How often do you have a drink containing alcohol?: 2-4 times a month 2. How many drinks containing alcohol do you have on a typical day when you are drinking?: 1 or 2 3. How often do you have six or more drinks on one occasion?: Never Total Score: 2 Score Reviewed/Action Taken: Yes EVELINE-7 AMB Questionnaire EVELINE-7 Date EVELINE - 7 assessed: 04/27/25 Feeling nervous, anxious, or on edge: 1 = Several days Not being able to stop or control worryin = Several days Worrying too much about different things: 1 = Several days Trouble relaxin = Not at all Being so restless that it is hard to sit still: 0 = Not at all Becoming easily annoyed or irritable: 1 = Several days Feeling afraid as if something awful might happen: 1 = Several days Total EVELINE-7 score (0-4 normal; 5-9 mild; 10-14 moderate; 15-21 severe): 5 Source: Developed by Drs. Rajinder San, Terri Martines, Donte Cannon and colleagues, with an educational simi from [employer]. EVELINE-7 Assessment Billing EVELINE-7 Assessment Tool: EVELINE-7 Assessment 63589 Review of Systems Const All systems reviewed & are unremarkable except as noted in HPI and below Physical exam (Primary Care) Vital Signs: Last Vital Signs Pulse 72 04/27/25 13:34 BP 130/78 04/27/25 13:34 Pulse Ox 97 04/27/25 13:34 Oxygen Delivery Method Room Air 04/27/25 13:34 BMI result Body Mass Index 34.2 Tobacco/Smoking Status: Tobacco use Status Tobacco use date assessed 04/27/25 04/27/25 13:38 Patient Tobacco Use Status Former Tobacco user 04/27/25 13:38 e-Cigarette/Vaping Use Never Used 04/27/25 13:38 PHQ-9: PHQ-9 Score PHQ-9: Total score 4 04/27/25 14:11 Depression Screening Interpretation: Positive (STABLE AND CONTROLLED ON CITALOPRAM and bupropion, followed by Dr. Ayala Butler) Depression Screening Follow-up: Existing condition, In treatment and Community Mental Health Worker F/U Thrive Assessment: Date of Thrive Assessment Date Thrive assessed 10/20/24 04/27/25 13:38 Currently or been in a relationship where the following occur: No concerns reported Const Other: Alert oriented x3, no acute distress noted [facility] General nose exam: Normal external nose present Face and sinus: Yes face symmetric and Yes sinus tenderness ( maxillary areas) Mouth: Normal oral and palatal mucosa present and moist mucous membranes Eyes General: appearance normal, both eyes and all related structures Neck Neck: Yes full ROM, Yes no lymphadenopathy and Yes supple Thyroid: Thyroid normal Resp Auscultation: clear to auscultation bilaterally Cardio Other: S1-S2 present regular rate and rhythm GI Palpation (GI): Soft to palpation, nontender and no guarding Neuro General: gait normal, Normal light touch and pain sensation, no focal motor deficits and CN's II-XI intact bilaterally Extrem General: Yes full ROM, Yes no joint enlargement, Yes no pedal edema and Yes normal gait Coding Level of Care Code Est Pt Level 4 (07846) Diagnoses Acute non-recurrent maxillary sinusitis J01.00 Sinusitis location: maxillary Recurrence: non-recurrent Rhinitis, unspecified type J31.0 Rhinitis type: unspecified Pruritic intertrigo L30.4 Additional Codes EVELINE-7 Assessment Billing - EVELINE-7 Assessment Tool: EVELINE-7 Assessment 33179 ([id number]) PHQ-9 - 63785 - PHQ-9 Billing: Yes ([id number]) Assessment & Plan Assessment & Plan (1) Sinusitis, acute: Code(s): J01.90 - Acute sinusitis, unspecified Qualifiers: Sinusitis location: maxillary Recurrence: non-recurrent Qualified Code(s): J01.00 - Acute maxillary sinusitis, unspecified Plan: Prescription sent for azithromycin Dosepak to initially take 2 tablets on the 1st day and then 1 a day on days 2-5. Last not to take it together with citalopram. (2) Rhinitis: Code(s): J31.0 - Chronic rhinitis Qualifiers: Rhinitis type: unspecified Qualified Code(s): J31.0 - Chronic rhinitis Plan: Advised to start taking any fiip-afj-fahkiar antihistamines like Claritin or cetirizine once a day as needed for nasal congestion and runny nose. May also use Flonase 1-2 sprays per nostril once or twice a day as needed. (3) Pruritic intertrigo: Code(s): L30.4 - Erythema intertrigo Category: Medical Plan: Resident and submammary area and inguinal areas. Advised to keep areas clean and dry at all times, prescription sent for nystatin-triamcinolone cream to apply sparingly to affected areas twice a day for no more than 10 days at a time. Medications: New azithromycin For 250 mg dose pack: take 500 mg today (day 1), then 250 mg for 4 days (days 2-5) PO 6 tabs 0RF nystatin-triamcinolone 100,000-0.1 unit/g-% 1 appl topical DAILY 30 grams 0RF 10 days
--- OUTSIDE RECORDS SUMMARY | 2025-04-27 14:42 | XMS_ITS | Clinical Summary ---
Author Organization [facility] Address [address] [place] [id number] Phone Care Team Providers Care Insulation Foreman Name Role Phone Yvette Shaffer MD Primary [...] problems may need to consider evaluation at [facility] on [facility] On SSRI therapy 05/07/2020 Assessment & Plan [...] wanted my opinion about Arthritis Advisor from [facility] and [facility]. I [...] wanted my opinion about Arthritis Advisor from [facility] and [facility]. I [...] wanted my opinion about Arthritis Advisor from [facility] and [facility]. I [...] wanted my opinion about Arthritis Advisor from [facility] and [facility]. I [...] wanted my opinion about Arthritis Advisor from [facility] and [facility]. I [...] REPLACEMENT [employer] PPO MEDICARE REPLACEMENT Care Teams Insulation Foreman Relationship Specialty Start Date End Date Yvette Shaffer MD [address] [id number] PCP - General Internal Medicine 12/30/21 Additional Source Comments The information contained in this document represents components of the legal health record. It is not the complete legal health record.[facility]
== END 2025-04-27 14:32 | disposition home or self-care (01) ==
LOC: HO.HMCC 13:16
PROVIDERS: PCP Internal Medicine; Visit Provider Internal Medicine
DX: J01.00 Acute maxillary sinusitis, unspecified (principal); J31.0 Chronic rhinitis; L30.4 Erythema intertrigo

== ENCOUNTER → 2025-04-27 13:15 | Outpatient (BNVA) | payer MEDICARE, SELFPAY | PROVIDERS: PCP Internal Medicine; Visit Provider Internal Medicine | DX: J31.0 Chronic rhinitis (principal); J01.00 Acute maxillary sinusitis, unspecified; L30.4 Erythema intertrigo | CPT/HCPCS: 96127; 99212 ==

== ENCOUNTER 2025-05-14 11:00 | Outpatient (RCR) | payer MEDICARE, SELFPAY ==
[2025-04-15 13:50] LABS: Chlamydia pneumoniae PCR Not Detected (Not Detect.); Coronavirus 229E PCR Not Detected (Not Detect.); Coronavirus HKU1 PCR Not Detected (Not Detect.); Coronavirus NL63 PCR Not Detected (Not Detect.); Coronavirus OC43 PCR Not Detected (Not Detect.); RSV PCR Not Detected (Not Detect.); Rhino/Enterovirus PCR Detected (Not Detect.)
[2025-04-15 14:08] LABS: Influenza A H1 PCR Not Detected (Not Detect.); Influenza A H1-2009 PCR Not Detected (Not Detect.); Influenza A H3 PCR Not Detected (Not Detect.); SARS-CoV-2 PCR Not Detected (Not Detect.)
== END 2025-05-14 14:24 | disposition home or self-care (01) ==
LOC: HO.PTCHIC 11:00
PROVIDERS: Physician Assistant Medical; PCP Internal Medicine; Visit Provider Orthopaedic Surgery
DX: T84.84XD Pain due to internal orthopedic prosthetic devices, implants and grafts, subsequent encounter (principal); Z96.652 Presence of left artificial knee joint
CPT/HCPCS: 87633; 97110; 97162

== ENCOUNTER 2025-06-01 09:49 | Outpatient (REF) | payer MEDICARE, SELFPAY ==
--- OUTSIDE RECORDS SUMMARY | 2025-06-01 11:23 | XMS_ITS | Clinical Summary ---
Author Organization [facility] Address [address] [place] [phone] Phone Care Team Providers Care Buyer Tobacco Head Name Role Phone Yvette Shaffer MD Primary [...] problems may need to consider evaluation at [facility] on [facility] On SSRI therapy 05/07/2020 Assessment & [...] wanted my opinion about Arthritis Advisor from [facility] and [facility] from [facility]. I [...] wanted my opinion about Arthritis Advisor from [facility] and [facility] from [facility]. I [...] wanted my opinion about Arthritis Advisor from [facility] and [facility]. I [...] wanted my opinion about Arthritis Advisor from [facility] and [facility]. I [...] wanted my opinion about Arthritis Advisor from [facility] and [facility]. I [...] REPLACEMENT [employer] PPO MEDICARE REPLACEMENT Care Teams Buyer Tobacco Head Relationship Specialty Start Date End Date Yvette Shaffer MD [address] [place] [address] PCP - General Internal Medicine 12/30/21 Additional Source Comments The information contained in this document represents components of the legal health record. It is not the complete legal health record.[facility]
--- OUTSIDE RECORDS SUMMARY | 2025-06-01 11:24 | XMS_ITS | Data Portability ---
Author Organization [facility], OFFICE Address [address] [facility], [address] [address] Assessment Encounter Date Assessment Date Assessment LastModified by Organization Details LastModified Time 10/03/2024 10/03/2024 We discussed the issues related to Ms Mireles's left knee. Her radiographs suggest tricompartmental arthrosis. I would anticipate that the lateral compartment has grade 4 changes which we can't see on the images so far. I've recommended a flexed, weight bearing view and a MR. We'll discuss thereafter. sbm Not available 10/03/2024 13:41:42 11/17/2024 11/17/2024 We discussed the issues related to her treatment. Ms. 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 She has a functional disability from the arthritis. Conservative therapy in the form of NSAIDs and flexibility and muscle strengthening exercises have been insufficiently helpful. Total knee arthroplasty is therefore appropriately indicated. We discussed the issues related to total knee arthroplasty in a lot of detail today including the preoperative process, the operative techniques, less invasive techniques, computer-assisted techniques, the types of implants, and the perioperative risks. In addition, we discussed the typical course following surgery and reasonable expectations for recovery, outcome, activity level, and long-term followup. She is interested in proceeding, and we will begin to make arrangements. This visit was conducted as a real-time telehealth interactive video visit. She was identified and consented to this telehealth visit. I spent a total of 15 minutes during this encounter. Greater than 50% of the time was devoted to counseling and coordinating care. This included reviewing records and pertinent studies, discussing diagnostic evaluation and workup, planning therapeutic interventions, and formulating the future disposition of care. sbm Not available 11/17/2024 15:49:31 04/17/2025 04/17/2025 Mrs Chi barboza s been recovering well following elective LTKR. She's going to continue to progress to all reasonable activities as tolerated. This visit was conducted as a real-time telehealth interactive video visit. She was identified and consented to this telehealth visit. I spent a total of 15 minutes during this encounter. Greater than 50% of the time was devoted to counseling and coordinating care. This included reviewing records and pertinent studies, discussing diagnostic evaluation and workup, planning therapeutic interventions, and formulating the future disposition of care. sbm Not available 04/17/2025 16:20:06 Plan of Treatment Reminders Order Date Submit Date Provider Last Modified By Organization Details Last Modified Time Details Appointments None record ed. Lab None record ed. Referral None record ed. Procedures None record ed. Surgeries None record ed. Imaging None record ed. Medication Orders None record ed. Patient TargetsNo targets recorded. Patient InstructionsNo instructions recorded. Reason for Referral None Reported. Problems No Known Problems Procedures Surgical History Date Name Laterality Status Provider Name and Address Organization Details Recorded Time total replacement of left knee joint completed Serina Partida MA - Comp[facility]Assistd and [facility] 04/17/2025 08:42:51 Imaging Results None recorded. Procedure Notes None recorded. Medical Equipment None Reported. Allergies No known drug allergies Medications Name Sig Start Date Stop Date Status Note LastModified by Organization Details LastModified Time acetaminophe n 325 mg tablet PLEASE SEE ATTACHED FOR DETAILED DIRECTIONS active Not Available Not Available N ot Available benzonatate 200 mg capsule TAKE 1 CAPSULE BY MOUTH 3 TIMES A DAY NEEDED FOR COUGH active Not Available Not Available No t Available alendronate 70 mg tablet active Not Available Not Available Not Available citalopram 20 mg tablet active Not Available Not Available Not Available meclizine 25 mg tablet TAKE 1 TABLET BY MOUTH FOUR TIMES A DAY active Not Available Not Available Not Available levothyroxin e 50 mcg tablet active Not Available Not Available Not Available erythromycin 5 mg/gram (0.5 %) eye ointment APPLY 1 CM TO THE OUTER EYELID AREA TWICE A DAY active Not Available Not Available Not Available neomycin-tim ymyxin-dexam eth 3.5 mg/mL-10,000 unit/mL-0.1% eye drops INSTILL 1 DROP INTO BOTH EYES 3 TIMES A DAY active Not Available Not Available Not Available omeprazole 20 mg capsule,cesar yed release TAKE 1 CAPSULE (20 MG TOTAL) BY MOUTH DAILY. CONTINUE WHILE TAKING ASPIRIN OR NSAIDS. active Not Available Not Available No t Available mupirocin 2 % topical ointment Starting 5 days before your surgery- Apply a small amount on a Q-Tip and swab each nostril twice a day. Use 1 dose the morning of surgery 2024 active Not Available Not Available Not Avai lable albuterol sulfate HFA 90 mcg/actuatio n aerosol inhaler INHALE 1 PUFF 4 TIMES A DAY NEEDED FOR SHORTNESS OF BREATH OR WHEEZING active Not Available Not Available Not Available celecoxib 100 mg capsule TAKE 1 CAPSULE (100 MG TOTAL) BY MOUTH 2 TIMES A DAY. TAKE WITH FOOD. active Not Available Not Available N ot Available oxycodone 5 mg tablet TAKE 1/2-1 TABS EVERY 4 HRS NEEDED FOR MODERATE/SE SIRENA POST-OP PAIN. active Not Available Not Available No t Available bupropion HCl XL 300 mg 24 hr tablet, extended release active Not Available Not Available Not Available Xdemvy 0.25 % eye drops INSTILL 1 DROP IN BOTH EYES TWICE DAILY active Not Available Not Available Not Available Vitals Date Recorded Body height Body mass index (BMI) Body weight Provider Name and Address Organization Details Last Updated DateTime 11/17/2024 154.94 cm 32.1 kg/m2 94058.7 g Serina Partida MA - Comp[facility]Assistd and [facility] 11/17/2024 14:01:09 Date Recorded Body height Body mass index (BMI) Body weight Provider Name and Address Organization Details Last Updated DateTime 04/17/2025 154.94 cm 32.1 kg/m2 37547.7 g Serina Partida MA - Comp[facility]Assistd and [facility] 04/17/2025 08:42:30 Social History Question Answer Notes LastModified by Organizat ion Details LastModified Time Tobacco Smoking Status Former Smoker Serina valencia, [facility] - [facility] 11/17/2024 14:02:18 Do You Have An Advance Directive? No [email or web address] Information not available 11/17/2024 Do You Have A Medical Power Of Cottage Supervisor? No [email or web address] Information not available 11/17/2024 What Was The Date Of Your Most Recent Tobacco Screening? 11/17/2024 [email or web address] Information not available 11/17/2024 How Much Tobacco Do You Smoke? No [email or web address] Information not available 11/17/2024 Has Tobacco Cessation Counseling Been Provided? No [email or web address] Information not available 11/17/2024 Sex: Unknown Functional Status Question Answer Note LastModified by Organization D etails LastModified Time Do you or have you ever used any other forms of tobacco or nicotine? No [email or web address] Information not available 11/17/2024 Are you able to care for yourself independently? Yes Information not available 11/17/2024 Mental Status None recorded. Family History Nothing Reported. Medical History Condition Response Anxiety/Depression Y Arthritis Y Osteoporosis Y Gynecological HistoryNo gynecological history recorded. Obstetrics History GPAL:G 0 P 0 0 0 0 Past Encounters Encounter ID Performer Location Encounter Start Date Encounter Closed Date Diagnosis/Indication Diagnosis SNOMED-CT Code Diagnosis ICD10 Code Diagnosis IMO Codes Diagnosis Note [id number] Luisito Galvez MD OFFICE [address] [facility] [address] [place] [address] 10/03/2024 11:36:33 10/06/2024 16:50:12 [id number] Luisito Galvez MD [facility] [address] [place] [address] 11/17/2024 08:40:23 11/18/2024 11:15:11 [id number] [facility] [address] [place] [address] 04/17/2025 08:41:47 04/17/2025 16:35:52 Health Concerns Section Related Observation LastModified by Organization Detai ls LastModified Time None Recorded Concern Status LastModified by Organization Details LastModified Time None Recorded Advance Directives Directive N: Payers Insurance Date Sequence Insurance Name Policy Number Policy Lockhart Covered Member ID Lockhart Member ID Guarantor Name 04/14/2025 1 OPHELIA [id number] 2 Thelma Mireles [id number] Thelma Mireles Notes Date Note Type Note Provider Name and Address Organization Details Recorded Time 10/03/2024 text/html KneeReported by PatientHPIFor location, patient reportsleft,lateral, anddeep. For severity, patient reportsmoderate. For alleviating factors, patient reportsrest. For aggravating factors, patient reportsstanding,walki ng,bending/squatting, weight bearing,exercise, andgoing from sit to stand. For associated symptoms, patient reportsno weakness,no numbness,no tingling,no swelling,no redness,no warmth,no ecchymosis,no catching/locking,no popping/clicking,no buckling,no grinding,no instability,no radiation down leg,no drainage,no fever,no chills,no weight loss, andno change in bowel/bladder habits. For prior imaging, patient reportsx ray. For previous injections, patient reportsdid not help(x 2).ROS as noted in the [facility] Luisito Galvez MD [address],[facility] [address], [place], [address], [place] - Comp-Assistd and [facility]cn[facility]ctive [facility] 10/03/2024 13:41:44 11/17/2024 text/html KneeReported by PatientHPIFor location, patient reportsleft,lateral, anddeep. For severity, patient reportsmoderate. For alleviating factors, patient reportsrest. For aggravating factors, patient reportsstanding,walki ng,bending/squatting, weight bearing,exercise, andgoing from sit to stand. For associated symptoms, patient reportsno weakness,no numbness,no tingling,no swelling,no redness,no warmth,no ecchymosis,no catching/locking,no popping/clicking,no buckling,no grinding,no instability,no radiation down leg,no drainage,no fever,no chills,no weight loss, andno change in bowel/bladder habits. For prior imaging, patient reportsx ray. For previous injections, patient reportsdid not help(x 2).ROS as noted in the [facility] Luisito Galvez MD [address],[facility] [address], [place], [address], [place] - Comp-Assistd and [facility]cnstrctive S[facility] 11/17/2024 15:49:33 04/17/2025 text/html KneeReported by PatientHPIFor location, patient reportsleftanddeep. For severity, patient reportsmild. For alleviating factors, patient reportsrestandstretch ing. For aggravating factors, patient reportsexercise. For associated symptoms, patient reportsno weakness,no numbness,no tingling,no swelling,no redness,no warmth,no ecchymosis,no catching/locking,no popping/clicking,no buckling,no grinding,no instability,no radiation down leg,no drainage,no fever,no chills,no weight loss, andno change in bowel/bladder habits. For prior imaging, patient reportsx rayandct scan. For previous pt, patient reportshelped significantly.ROS as noted in the HPI Luisito Galvez MD [address] [facility] [address], [place], [address], [place] - Comp-Assistd and Rcnstrctive S[facility]ry 04/17/2025 16:20:13 OBGyn Episode No OBEpisode recorded.
[2025-06-01 14:14] LABS: Alanine Aminotransferase 18 U/L (0-31); Anion Gap 7 (12-20); Aspartate Amino Transferase 21 U/L (5-31); Blood Urea Nitrogen 21 mg/dL (9-16); Calcium 9.4 mg/dL (8.4-10.2); Carbon Dioxide 28 mmol/L (22-29); Chloride 108 mmol/L (96-108); Cholesterol 239 mg/dL (<200); Estimated Glomerular Filt Rate > 60; HDL Cholesterol 65 mg/dL (>40); Potassium 4.2 mmol/L (3.3-5.1); Sodium 139 mmol/L (135-145); Triglycerides 91 mg/dL (<150)
[2025-06-01 14:18] LABS: Free T4 (Free Thyroxine) 1.02 ng/dL (0.71-1.85); Thyroid Stimulating Hormone 1.51 uIU/mL (0.32-4.0)
== END 2025-06-01 09:50 | disposition home or self-care (01) ==
LOC: HO.HMGCLDS 09:49
PROVIDERS: PCP Internal Medicine; Visit Provider Internal Medicine
DX: M81.0 Age-related osteoporosis without current pathological fracture (principal); E03.9 Hypothyroidism, unspecified; M85.852 Other specified disorders of bone density and structure, left thigh; K58.1 Irritable bowel syndrome with constipation; E78.5 Hyperlipidemia, unspecified
CPT/HCPCS: 36415; 80048; 80061; 82306; 84439; 84443; 84450; 84460; 84481

== ENCOUNTER 2025-06-02 14:31 | Outpatient (AMB) | payer MEDICARE, SELFPAY ==
[2025-06-02 14:35] VITALS: BP 146/80; PULSE 76; RESP 16; TEMP 36.7; O2SAT 95; BMI 34.2
--- NOTE | 2025-06-02 14:35 | MHC.PC.OV ---
Vital Signs 06/02/25 14:35 Height 5 ft 1 in Weight 181 lb BMI 34.2 BP 146/80 H Blood Pressure Location Rt brachial Position Sitting Respiration 16 Pulse 76 Pulse Source Pulse Oximeter Temp 98.1 F Temp Source Oral Pulse Oximetry (%) 95 Oxygen Delivery Method Room Air Intake Visit Reasons: Annual PE Intake Note: Pt is here today for her PE: Last mammogram 04/24/23 Inspection Supervisor Required: No Allergies No Known Allergies Allergy (Verified 06/07/25 22:09) Medication List - Last Reconciled 06/02/25 by Yvette Shaffer MD alendronate 70 mg PO QWEEK 90 days bupropion HCl XL 300 mg PO DAILY cholecalciferol (vitamin D3) 50 mcg PO DAILY citalopram 20 mg PO DAILY clobetasol 0.05% 1 appl topical DAILY PRN [glucosamin plus msm 500 mg PO DAILY] levothyroxine 50 mcg PO QAM magnesium oxide 500 mg PO DAILY omega-3 fatty acids-fish oil (Fish Oil Extra Strength) 1 cap PO DAILY sennosides (senna) 17.2 mg (2 x 8.6 mg) PO BEDTIME 30 days Tobacco use date assessed: 06/02/25 Last assessed Fall Risk: 06/02/25 Dental Screening Dental Screen Date: 04/27/25 HPI Annual PE HPI Details The patient is an 80-year-old female presenting for a physical exam She is scheduled for a mammogram and a bone density scan this month. Her last colonoscopy was in 2022, where precancerous polyps were found, and she is due for a repeat procedure in 2025. She reports that a provider, HELLEN Baech, had previously sent her a Cologuard test, which she correctly returned, understanding it is inappropriate given her history of polyps. For osteoporosis, the patient takes alendronate (Fosamax) and has an upcoming rheumatology appointment on July [address] June Samayoa. The rheumatology office has moved to [place], and the new address was provided to the patient. The patient expresses concern about being approximately 30 pounds overweight and inquired about Moun[facility]. Recent lab work showed an increase in her total cholesterol from 213 to 239 mg/dL and LDL cholesterol from 131 to 156 mg/dL, which is attributed to inactivity after her surgery and dietary indiscretions, including pastries and ice cream. She has a family history of diabetes in her mother but denies personal history of diabetes, and her blood sugar has always been normal. The patient is five years post-knee surgery and reports residual numbness around the incision, which she was advised could be permanent. The knee is not painful and does not get warm. She is managed for depression with citalopram and bupropion, followed by her psychiatrist , Dr. Butler. The patient reports a history of a chronic cough for months, for which she was advised to take Zyrtec by another clinic. She experienced diffuse pruritus after stopping Zyrtec, which resolved upon weaning off the medication. She currently uses fluticasone nasal spray at night for what is presumed to be postnasal drip. She follows with Dr. Shirley at [facility] and has no glaucoma or macular degeneration, though she has a history of cataract surgery. She was prescribed eye drops for inflammation and soreness. The patient reports having diverticulosis, chronic constipation, and requests a refill for a cream she uses for vaginal irritation. [facility] Medical History Pruritic intertrigo Hearing deficit Dense breast tissue on mammogram Irritable bowel syndrome with constipation Depression Dyslipidemia Osteopenia of left femoral neck Acquired hypothyroidism Primary osteoarthritis Surgical History H/O colonoscopy History of arthrodesis History of cataract surgery History of tubal ligation History of appendectomy Family History Father Dysrhythmia CVD (cardiovascular disease) Mother HTN (hypertension) Breast cancer Bladder cancer Mental health disorder Maternal Grandfather Stroke Maternal Grandmother Stroke Paternal Grandfather No problems noted. Paternal Grandmother Liver cancer Social History Housing: House Are you a primary healthcare liaison to a significant other at home: No Do you presently have visiting nurse or other home services: No Alcohol intake: current Alcohol intake frequency: holidays/special occasions only Patient Tobacco Use Status: Former Tobacco user Years Smoked: 1 yr e-Cigarette/Vaping Use: Never Used Second Hand Smoke Exposure: No Advance Directives Date on File: 11/15/23 service: No Current occupational status: retired Cognitive needs: No Hearing needs: No Vision needs: Yes Questionnaire PHQ-9 Over the last 2 weeks, how often have you been bothered by any of the following problems? 1. Little interest or pleasure in doing things: several days 2. Feeling down, depressed, or hopeless: not at all 3. Trouble falling or staying asleep, or sleeping too much: several days 4. Feeling tired or having little energy: several days 5. Poor appetite or overeating: not at all 6. Feeling bad about yourself - or that you are a failure or have let yourself or your family down: not at all 7. Trouble concentrating on things, such as reading the newspaper or watching television: several days 8. Moving or speaking so slowly that other people could have noticed. Or the opposite - being so fidgety or restless that you have been moving around a lot more than usual: not at all 9. Thoughts that you would be better off or of hurting yourself in some way: not at all Total score: 4 Depression Screening Interpretation: Positive (STABLE AND CONTROLLED ON CITALOPRAM and bupropion, followed by Dr. Ayala Butler) Depression Screening Follow-up: Existing condition, In treatment and Community Mental Health Worker F/U Depression Screening Done: Yes Source: Developed by Drs. Rajinder San, Terri Martines, Donte Cannon and colleagues, with an educational simi from [employer]. Thrive Questionnaire Date Thrive assessed: 10/20/24 I am a: Patient What is your living situation today?: I have a steady place to live Within the past 12 months, did the food you bought not last and you didn't have the money to get more?: Never true Within the past 12 months, did you worry whether your food would run out before you got money to buy more?: Never true Do you have trouble paying for medicines?: No Do you have trouble getting transportation to medical appointments?: No Do you have trouble paying your heating and electricity bill?: No Do you have trouble taking care of your child, family member or friend?: No Do you have trouble with day-to-day activities such as bathing, preparing meals, shopping, managing finances, etc.?: No Are you currently unemployed and looking for a job?: No Are you interested in more education?: No Please select the resources that you would like help with: None Currently or been in a relationship where the following occur: No concerns reported THRIVE Score: 0 AUDIT C Alcohol Use Questionnaire (AUDIT-C) 1. How often do you have a drink containing alcohol?: 2-4 times a month 2. How many drinks containing alcohol do you have on a typical day when you are drinking?: 1 or 2 3. How often do you have six or more drinks on one occasion?: Never Total Score: 2 EVELINE-7 AMB Questionnaire EVELINE-7 Date EVELINE - 7 assessed: 04/27/25 Feeling nervous, anxious, or on edge: 1 = Several days Not being able to stop or control worryin = Several days Worrying too much about different things: 1 = Several days Trouble relaxin = Not at all Being so restless that it is hard to sit still: 0 = Not at all Becoming easily annoyed or irritable: 1 = Several days Feeling afraid as if something awful might happen: 1 = Several days Total EVELINE-7 score (0-4 normal; 5-9 mild; 10-14 moderate; 15-21 severe): 5 Source: Developed by Drs. Rajinder San, Terri Martines, Donte Cannon and colleagues, with an educational simi from [employer]. Review of Systems Const All systems reviewed & are unremarkable except as noted in HPI and below Reports no additional complaints Eyes Reports no additional complaints ENT Reports no additional complaints and Reports Normal hearing present Card Reports no additional complaints Resp Reports no additional complaints GI Reports no additional complaints Reports no additional complaints Musc Reports no additional complaints Skin/Breast Reports system reviewed and no additional complaints, except as documented Neuro Reports no additional complaints, Reports Normal hearing present and Denies Abnormal speech present Psych Reports no additional complaints Endo Reports no additional complaints Juan Manuel/Lymph Reports no additional complaints Aller/Immun Reports no additional complaints Physical exam (Primary Care) Vital Signs: Last Vital Signs Temp 98.1 F 06/02/25 14:35 Pulse 76 06/02/25 14:35 Resp 16 06/02/25 14:35 BP 146/80 H 06/02/25 14:35 Pulse Ox 95 06/02/25 14:35 Oxygen Delivery Method Room Air 06/02/25 14:35 BMI result Body Mass Index 34.2 Tobacco/Smoking Status: Tobacco use Status Tobacco use date assessed 06/02/25 06/02/25 14:36 Patient Tobacco Use Status Former Tobacco user 06/02/25 14:36 e-Cigarette/Vaping Use Never Used 06/02/25 14:36 PHQ-9: PHQ-9 Score PHQ-9: Total score 4 06/07/25 22:18 Depression Screening Interpretation: Positive (STABLE AND CONTROLLED ON CITALOPRAM and bupropion, followed by Dr. Ayala Butler) Depression Screening Follow-up: Existing condition, In treatment and Community Mental Health Worker F/U Thrive Assessment: Date of Thrive Assessment Date Thrive assessed 10/20/24 06/02/25 14:36 Currently or been in a relationship where the following occur: No concerns reported Const Other: Alert oriented x3, no acute distress noted HENPA General nose exam: Normal external nose present Face and sinus: Yes face symmetric Mouth: Normal oral and palatal mucosa present and moist mucous membranes Eyes General: appearance normal, both eyes and all related structures Neck Neck: Yes full ROM, Yes no lymphadenopathy and Yes supple Thyroid: Thyroid normal Chest Breast/axilla inspection: normal inspection of the breasts Breast/axilla palpation: normal palpation of the breasts Resp Auscultation: clear to auscultation bilaterally Cardio Other: S1-S2 present regular rate and rhythm GI Palpation (GI): Soft to palpation, nontender and no guarding General: Yes no CVA tenderness Back/Spine/Pelvis Back: no CVA tenderness and No back tenderness Skin General skin exam: no rashes or lesions noted Neuro General: gait normal, Normal light touch and pain sensation, no focal motor deficits and CN's II-XI intact bilaterally Cranial nerves: Yes Normal hearing present Speech: No Abnormal speech present Extrem General: Yes full ROM, Yes no joint enlargement, Yes no pedal edema and Yes normal gait Psych Appearance: grossly normal Mental Status: mental status grossly normal Speech and movement: Normal speech and movement present Affect: normal affect Thought process: Normal thought process present Results Reviewed Results Reviewed: Name: Thelma Mireles Age/Sex: 80/F : 1945 Unit#: [id number] Attend Dr: Yvette Shaffer MD Re06/01/25 Status: DEP REF Location: [facility] Disch: SPEC : [id number] KIMBERLY: 06/01/25 STATUS: COMP REQ : [id number] RECD: 06/01/[address]: Yvette Shaffer MD COMP: 06/01/25 ENTERED: 06/01/[address] [facility] [address]: ORDERED: Met Prof Fast, AST, ALT, Lipid Panel, Vitamin D 25-OH, Free T4, TSH Test Result Flag Reference Sodium 139 135-145 mmol/L Potassium 4.2 3.3-5.1 mmol/L CL 108 96-108 mmol/L CO2 28 22-29 mmol/L Gap 7 L 12-20 BUN 21 H 9-16 mg/dL Creat 0.81 0.5-1.4 mg/dL eGFR > 60 Chronic Kidney Disease: Estimated GFR < 60 mL/min/1.73m2 Severe Kidney Disease: Estimated GFR < 15 mL/min/1.73m2 FBS 95 60-99 mg/dL CA 9.4 8.4-10.2 mg/dL AST (GOT) 21 5-31 U/L ALT (GPT) 18 0-31 U/L Triglyceride 91 <150 mg/dL Desirable Triglyceride: less than 150 mg/dL Borderline High Triglyceride 150-199 mg/dL High Triglyceride: 200-499 mg/dL Very High Triglyceride: greater than or equal to 5OO mg/dL Cholesterol 239 H <200 mg/dL Desirable Cholesterol: less than 200 mg/dL Borderline High Cholesterol: 200-239 mg/dL High Cholesterol: greater than 239 mg/dL LDL Calculated 156 H <100 mg/dL Desirable LDL: less than 100 mg/dL Near Optimal/Above Optimal LDL: 110-129 mg/dL Borderline High LDL: 130-159 mg/dL High LDL: 160-189 mg/dL Very High LDL: greater than or equal to 190 mg/dL HDL 65 >40 mg/dL Desirable HDL: greater than 40 mg/dL Note: This HDL assay may give artificially low results in patients with liver disease. Vitamin D 25-OH 52.9 >30 ng/mL Health Based Reference Values* < 20 ng/mL Deficient 20-30 ng/mL Insufficient > 30 ng/mL Sufficient *Gt PAL. N Engl J Med. 2007;357:266-280 There is no well-established upper level of normal vitamin D levels. Some laboratories use 50 ng/mL as an upper limit of normal. However, toxicity is patient-dependent and may occur at any level. Careful correlation with the patient's presentation is necessary and, if there is concern for vitamin D toxicity, treatment should be considered irrespective of the serum level. Care must be taken in interpreting Vitamin D results from different laboratories and methodologies. Published data demonstrated that results from patients undergoing hemodialysis may show a negative bias when tested with various automated 25-OH vitamin D assays when compared to LC-MS/MS. When testing samples from patients whose predominant form of Vitamin D is Vitamin D2, such as patients receiving Vitamin D2 supplementation, results that are subtherapeutic should be confirmed with another method such as LC-MS/MS. Free T4 1.02 0.71-1.85 ng/dL TSH 3rd Gen. 1.51 0.32-4.0 uIU/mL TSH 3rd Generation ([facility]) Coding Level of Care Code Est Pt Prev Care >65y(20067) Diagnoses Annual visit for general adult medical examination with abnormal findings Z00.01 Recurrent major depressive disorder, in remission F33.40 Active/Remission status: in remission of unspecified degree Depression Type: major depressive disorder Major depression recurrence: recurrent Dyslipidemia E78.5 Acquired hypothyroidism E03.9 Age-related osteoporosis without current pathological fracture M81.0 Osteoporosis type: age-related Presence of current pathological fracture: without current pathological fracture Irritable bowel syndrome with constipation K58.1 Assessment & Plan Assessment & Plan (1) Annual visit for general adult medical examination with abnormal findings: Code(s): Z00.01 - Encounter for general adult medical examination with abnormal findings Plan: Latest fasting lab results reviewed with patient.. Recommended dental visit every 6 months and regular eye exams, at least every 2 years. Take adequate calcium in diet and vitamin-D 3 at 2000 IU per cap once a day, in addition to weight-bearing exercises to help maintain good muscle tone and weight control. Has an appointment already scheduled with Rheumatology . Instructed to do self-breast exam, and recommended to get yearly mammogram, starting at age 40. Up-to-date with her screening colonoscopy done by Dr. Cartwright in 2022 due again in 2025 due to removal of tubular adenoma polyp. Up-to-date with all her vaccines but did not get a COVID booster (2) Depression: Code(s): F32.9 - Major depressive disorder, single episode, unspecified Category: Medical Qualifiers: Active/Remission status: in remission of unspecified degree Depression Type: major depressive disorder Major depression recurrence: recurrent Qualified Code(s): F33.40 - Major depressive disorder, recurrent, in remission, unspecified Plan: Currently on citalopram 20 mg daily, and bupropion HCL XL 300 mg in the morning. Followed by Dr. Ayala Butler (3) Dyslipidemia: Code(s): E78.5 - Hyperlipidemia, unspecified Category: Medical Plan: Reviewed recent fasting lipid profile with patient with LDL cholesterol not at goal . Continue taking Callery 3 fatty acid supplements, in addition to adherence to low-cholesterol diet and regular exercise, at least 30 minutes 3 to 4 times a week. Advised patient to make healthy food choices, eat more fruits, vegetables, whole grains, wild caught fish and low-fat dairy. Limit amount of meat and fried or fatty food products, as well as processed foods and fast foods. Follow-up scheduled with repeat fasting lipid panel in November 2025 (4) Acquired hypothyroidism: Code(s): E03.9 - Hypothyroidism, unspecified Category: Medical Plan: Latest thyroid levels are within normal limits, continue current dose of levothyroxine 50 mcg daily in a.m. will repeat thyroid levels again on next visit in November 2025 (5) Osteoporosis: Comment: Was on Evista for more than 10 years DEXA 03/2023 Showed worsening T-score at left femoral neck from -2.3 in 2019 to -2.7 L-spine T-score -1.6, unchanged from 2020 Alendronate started 04/2023 well-tolerated Code(s): M81.0 - Age-related osteoporosis without current pathological fracture Category: Medical Qualifiers: Osteoporosis type: age-related Presence of current pathological fracture: without current pathological fracture Qualified Code(s): M81.0 - Age-related osteoporosis without current pathological fracture Plan: Currently on alendronate continue with taking vitamin-D 3 supplements 2000 units daily and adequate calcium from dietary sources. Has an appointment with Rheumatology already scheduled (6) Irritable bowel syndrome with constipation: Code(s): K58.1 - Irritable bowel syndrome with constipation Category: Medical Plan: Takes senna at bedtime as needed Orders: Orders Alanine Aminotransferase 11/27/25 E03.9 - Hypothyroidism, unspecified, E78.5 - Hyperlipidemia, unspecified, F33.40 - Major depressive disorder, recurrent, in remission, unspecified, K58.1 - Irritable bowel syndrome with constipation, M81.0 - Age-related osteoporosis without current pathological fracture Thyroid Stimulating Hormone 11/27/25 E03.9 - Hypothyroidism, unspecified, E78.5 - Hyperlipidemia, unspecified, F33.40 - Major depressive disorder, recurrent, in remission, unspecified, K58.1 - Irritable bowel syndrome with constipation, M81.0 - Age-related osteoporosis without current pathological fracture Lipid Panel 11/27/25 E03.9 - Hypothyroidism, unspecified, E78.5 - Hyperlipidemia, unspecified, F33.40 - Major depressive disorder, recurrent, in remission, unspecified, K58.1 - Irritable bowel syndrome with constipation, M81.0 - Age-related osteoporosis without current pathological fracture Aspartate Amino Transferase 11/27/25 E03.9 - Hypothyroidism, unspecified, E78.5 - Hyperlipidemia, unspecified, F33.40 - Major depressive disorder, recurrent, in remission, unspecified, K58.1 - Irritable bowel syndrome with constipation, M81.0 - Age-related osteoporosis without current pathological fracture Triiodothyronine T3 Free 11/27/25 E03.9 - Hypothyroidism, unspecified, E78.5 - Hyperlipidemia, unspecified, F33.40 - Major depressive disorder, recurrent, in remission, unspecified, K58.1 - Irritable bowel syndrome with constipation, M81.0 - Age-related osteoporosis without current pathological fracture Free T4 (Free Thyroxine) 11/27/25 E03.9 - Hypothyroidism, unspecified, E78.5 - Hyperlipidemia, unspecified, F33.40 - Major depressive disorder, recurrent, in remission, unspecified, K58.1 - Irritable bowel syndrome with constipation, M81.0 - Age-related osteoporosis without current pathological fracture Vitamin D 25-OH Total 11/27/25 E03.9 - Hypothyroidism, unspecified, E78.5 - Hyperlipidemia, unspecified, F33.40 - Major depressive disorder, recurrent, in remission, unspecified, K58.1 - Irritable bowel syndrome with constipation, M81.0 - Age-related osteoporosis without current pathological fracture Basic Metabolic Panel Fasting 11/27/25 E03.9 - Hypothyroidism, unspecified, E78.5 - Hyperlipidemia, unspecified, F33.40 - Major depressive disorder, recurrent, in remission, unspecified, K58.1 - Irritable bowel syndrome with constipation, M81.0 - Age-related osteoporosis without current pathological fracture Medications: New clobetasol 0.05% 1 appl topical DAILY PRN 15 grams 0RF vaginal irritation
--- OUTSIDE RECORDS SUMMARY | 2025-06-02 17:34 | XMS_ITS | Clinical Summary ---
Author Organization [facility] Address [address] [place] [id number] Phone Care Team Providers Care Observatory Director Name Role Phone Yvette Shaffer MD Primary [...] problems may need to consider evaluation at [facility] on [facility] On SSRI therapy 05/07/2020 Assessment & [...] wanted my opinion about Arthritis Advisor from [facility] and [facility] from [facility]. [...] wanted my opinion about Arthritis Advisor from [facility] and [facility]. [...] wanted my opinion about Arthritis Advisor from [facility] and [facility]. [...] wanted my opinion about Arthritis Advisor from [facility] and [facility]. [...] wanted my opinion about Arthritis Advisor from [facility] and [facility]. [...] REPLACEMENT [employer] PPO MEDICARE REPLACEMENT Care Teams Observatory Director Relationship Specialty Start Date End Date Yvette Shaffer MD 1962 [facility] [place] [id number] PCP - General Internal Medicine 12/30/21 Additional Source Comments The information contained in this document represents components of the legal health record. It is not the complete legal health record.[facility]
== END 2025-06-02 15:26 | disposition home or self-care (01) ==
LOC: HO.HMCC 14:32
PROVIDERS: PCP Internal Medicine; Visit Provider Internal Medicine
DX: Z00.01 Encounter for general adult medical examination with abnormal findings (principal); F33.40 Major depressive disorder, recurrent, in remission, unspecified; E78.5 Hyperlipidemia, unspecified; E03.9 Hypothyroidism, unspecified; M81.0 Age-related osteoporosis without current pathological fracture; K58.1 Irritable bowel syndrome with constipation

== ENCOUNTER → 2025-06-02 14:31 | Outpatient (BNVA) | payer MEDICARE, SELFPAY | PROVIDERS: PCP Internal Medicine; Visit Provider Internal Medicine | DX: Z00.01 Encounter for general adult medical examination with abnormal findings (principal); M81.0 Age-related osteoporosis without current pathological fracture; R20.0 Anesthesia of skin; R05.3 Chronic cough; F33.40 Major depressive disorder, recurrent, in remission, unspecified; E78.5 Hyperlipidemia, unspecified; E03.9 Hypothyroidism, unspecified; K58.1 Irritable bowel syndrome with constipation; Z79.899 Other long term (current) drug therapy | CPT/HCPCS: 96127; 99397 ==

== ENCOUNTER 2025-06-23 13:29 | Outpatient (REF) | payer MEDICARE, SELFPAY ==
--- NOTE | ~2025-06-23 | MM_ITS ---
EXAMINATION: DXA BONE DENSITY AXIAL HISTORY: M81.0 - Age-related osteoporosis without current pathological fracture TECHNIQUE: Frugoton Dual energy absorptiometry (DEXA) of the lumbar spine, total left hip, and femoral neck was performed. COMPARISON: Comparison is made with the prior examination dated 04/04/2023. FINDINGS: The bone mineral density of the lumbar spine is 0.981 g/cm2, corresponding to a T-score of -1.5, and a Z-score of -0.3. This is indicative of osteopenia. This represents a BMD change of 6.2% compared to the prior exam. This is statistically significant. The bone mineral density of the left total hip is 0.840 g/cm2, corresponding to a T-score of -1.3, and a Z-score of 0.3. This is indicative of osteopenia. This represents a BMD change of 19.1% compared to the prior exam. This is statistically significant. The bone mineral density of the left femoral neck is 0.767 g/cm2, corresponding to a T-score of -1.9, and a Z-score of -0.1. This is indicative of osteopenia. This represents a BMD change of 14.8% compared to the prior exam. MM/XR DEXA axial skeleton IMPRESSION: Based on bone mineral density, and according to World Health Organization (WHO) criteria, the diagnosis is consistent with osteopenia. Statistically, 68% of repeat scans fall within 1 SD (+/- 0.010 g/cm2 for AP spine L1-L4) and 1 SD (+/- 0.012 g/cm2 for femur total) FRAX is a trademark of the [employer] [place] for Metabolic Bone Disease, a World Health Organization (WHO) Collaborating Center. Electronically signed by: Rajinder Cruz MD 06/23/2025 02:31 PM [facility]
--- NOTE | ~2025-06-23 | MM_ITS ---
EXAMINATION: MM SCREENING DIGITAL BREAST TOMOSYNTHESIS, BILATERAL CLINICAL INFORMATION: Screening. Asymptomatic. COMPARISON: Mammography: Comparison is made with available priors TECHNIQUE: Digital breast mammography with tomosynthesis is performed in both the craniocaudal and mediolateral oblique views along with computer-aided detection (CAD). FINDINGS: The breasts are heterogeneously dense, which may obscure small masses. There are no significant masses, abnormal calcifications, or other abnormalities. MM/MM tomosynthesis screening BI IMPRESSION: No mammographic evidence of malignancy. ASSESSMENT: BI-RADS Category 1: Negative RECOMMENDATION: Routine annual mammography screening. 1 year F/U This examination should not preclude the clinical evaluation of a suspicious palpable abnormality. This patient's information was entered into a reminder system with a target due date for their next mammogram. Electronically signed by: Tiffany Abraham DO 06/24/2025 04:14 PM [facility]
--- OUTSIDE RECORDS SUMMARY | 2025-06-23 17:23 | XMS_ITS | Clinical Summary ---
Author Organization [facility] Address [address] [place] [id number] Phone Care Team Providers Care Tar Boiler Name Role Phone Yvette Shaffer MD Primary [...] problems may need to consider evaluation at [facility] on [facility] On SSRI therapy 05/07/2020 Assessment & [...] wanted my opinion about Arthritis Advisor from [facility] and [facility] from [facility] [...] wanted my opinion about Arthritis Advisor from [facility] and [facility] from [facility] [...] wanted my opinion about Arthritis Advisor from [facility] and [facility] from [facility] [...] wanted my opinion about Arthritis Advisor from [facility] and [facility] from [facility] [...] wanted my opinion about Arthritis Advisor from [facility] and [facility] from [facility] [...] REPLACEMENT [employer] PPO MEDICARE REPLACEMENT Care Teams Tar Boiler Relationship Specialty Start Date End Date Yvette Shaffer MD [address] [facility] [place] [place] [address] PCP - General Internal Medicine 12/30/21 Additional Source Comments The information contained in this document represents components of the legal health record. It is not the complete legal health record.[facility]
--- OUTSIDE RECORDS SUMMARY | 2025-06-23 17:23 | XMS_ITS | Continuity of Care Document ---
Author Organization [facility] Address [address] [place] [address] Assessment Encounter Date Assessment Date Assessment LastModified by Organization Details LastModified Time 04/17/2025 04/17/2025 Mrs Mireles has been recovering well following elective LTKR. She's [...] replacement of left knee joint completed Serina Tinajero [facility] 04/17/2025 08:42:51 Imaging Results [...] Updated DateTime 04/17/2025 154.94 cm 32.1 kg/m2 15218.7 g Serina Partida [place] - [facility]Ass[facility] and [facility] 04/17/2025 08:42:30 Social History Question Answer Notes LastModified by Organizat ion Details LastModified Time Tobacco Smoking Status Former Smoker Serina Jaquan [facility], [place] - [facility]Assistd and [facility] 11/17/2024 14:02:18 Do You Have An Advance Directive? No [email or web address] Information not available 11/17/2024 Do You Have A Medical Power Of Supervisor [employer]? No [email or web address] Information not available 11/17/2024 What Was The Date Of Your Most Recent Tobacco Screening? 11/17/2024 [email or web address] Information not available 11/17/2024 How Much Tobacco Do You Smoke? No [email or web address] Information not available 11/17/2024 Has Tobacco Cessation Counseling Been Provided? No [email or web address] Information not available 11/17/2024 Sex: Unknown Functional Status Question Answer Note LastModified by Organization D etails LastModified Time Do you or have you ever used any other forms of tobacco or nicotine? No [email or web address] Information not available 11/17/2024 Are you able to care for yourself independently? Yes [email or web address] Information not available 11/17/2024 Mental Status None recorded. Family History Nothing Reported. Medical History Condition Response Anxiety/Depression Y Arthritis Y Osteoporosis Y Gynecological HistoryNo gynecological history recorded. Obstetrics History GPAL:G 0 P 0 0 0 0 Past Encounters Encounter ID Performer Location Encounter Start Date Encounter Closed Date Diagnosis/Indication Diagnosis SNOMED-CT Code Diagnosis ICD10 Code Diagnosis IMO Codes Diagnosis Note [id number] Luisito Galvez MD [facility] [address] [place] [address] 04/17/2025 08:41:47 04/17/2025 16:35:52 Health Concerns Section Related Observation LastModified by Organization Detai ls LastModified Time None Recorded Concern Status LastModified by Organization Details LastModified Time None Recorded Payers Encounter Date Sequence Insurance Name Policy Number Policy Lockhart Covered Member ID Lockhart Member ID Guarantor Name 04/17/2025 1 [employer] [id number] Thelma Mireles [id number] Thelma Mireles Notes Date Note Type Note Provider Name and Address Organization Details Recorded Time 04/17/2025 text/html KneeReported by PatientHPIFor location, patient [...] noted in the HPI Luisito Galvez MD [address] [place] [address],[facility] [address], [place], [address], [place] - [facility]Assistd and [facility] 04/17/2025 16:20:13 OBGyn Episode No OBEpisode recorded.
--- OUTSIDE RECORDS SUMMARY | 2025-06-23 17:23 | XMS_ITS | Data Portability ---
Author Organization [facility], OFFICE Address [address] [facility], [address] [address] Assessment Encounter Date Assessment Date Assessment LastModified [...] Updated DateTime 11/17/2024 154.94 cm 32.1 kg/m2 44286.7 g Serina Partida [place] - [facility]Assistd and [facility] 11/17/2024 14:01:09 Date Recorded Body height Body mass index (BMI) Body weight Provider Name and Address Organization Details Last Updated DateTime 04/17/2025 154.94 cm 32.1 kg/m2 88414.7 g Serina Partida [place] - [facility]Assistd and [facility] 04/17/2025 08:42:30 Social History Question Answer Notes LastModified by Organizat ion Details LastModified Time Tobacco Smoking Status Former Smoker Serina valencia, [facility] - [facility] 11/17/2024 14:02:18 Do You Have An Advance Directive? No [email or web address] Information not available 11/17/2024 Do You Have A Medical Power Of Personal Care Aid? No [email or web address] Information not available 11/17/2024 What Was The Date Of Your Most Recent Tobacco Screening? 11/17/2024 [email or web address] Information not available 11/17/2024 How Much Tobacco Do You Smoke? No [email or web address] Information not available 11/17/2024 Has Tobacco Cessation Counseling Been Provided? No [email or web address] Information not available 11/17/2024 Sex: Unknown Functional Status Question Answer Note LastModified by Organization D etails LastModified Time Do you or have you ever used any other forms of tobacco or nicotine? No [email or web address] Information not available 11/17/2024 Are you able [...] ICD10 Code Diagnosis IMO Codes Diagnosis Note [id number] Luisito Galvez MD OFFICE [address] [facility] [address] [place] [address] 10/03/2024 11:36:33 10/06/2024 16:50:12 [id number] Luisito Galvez MD [facility] [address] [place] [address] 11/17/2024 08:40:23 11/18/2024 11:15:11 [id number] [facility] [address] [place] [address] 04/17/2025 08:41:47 04/17/2025 16:35:52 Health Concerns Section Related Observation LastModified by Organization Detai ls LastModified Time None Recorded Concern Status LastModified by Organization Details LastModified Time None Recorded Advance Directives Directive N: Payers Insurance Date Sequence Insurance Name Policy Number Policy Lockhart Covered Member ID Lockhart Member ID Guarantor Name 04/14/2025 1 [id number] 2 Thelma Mireles [id number] Thelma Mireles Notes Date Note Type Note [...] not help(x 2).ROS as noted in the [facility] Luisito Galvez MD [address],[facility] [address], [place], [address], [place] - Comp-Assistd and [facility] 10/03/2024 [...] not help(x 2).ROS as noted in the [facility] Luisito Galvez MD [address],[facility] [address], [place], [address], [place] - Comp-Assistd and [facility] 11/17/2024 [...] in the HPI Luisito Galvez MD [address] [facility] [address], [place], [address], [place] - Comp-Assistd and [facility] 04/17/2025 16:20:13 OBGyn Episode No OBEpisode recorded.
== END 2025-06-23 13:30 | disposition home or self-care (01) ==
LOC: HO.MAMMO 13:29
PROVIDERS: PCP Internal Medicine; Visit Provider Student in an Organized Health Care Education/Training Program
DX: Z12.31 Encounter for screening mammogram for malignant neoplasm of breast (principal); M81.0 Age-related osteoporosis without current pathological fracture
CPT/HCPCS: 77063; 77067; 77080

== ENCOUNTER → 2025-06-23 14:00 | Outpatient (BNV) | payer MEDICARE, SELFPAY | PROVIDERS: PCP Internal Medicine; Visit Provider Radiology Diagnostic Radiology | DX: E28.39 Other primary ovarian failure (principal) | CPT/HCPCS: 77080 ==

== ENCOUNTER 2025-07-08 13:33 | Outpatient (AMB) | payer MEDICARE, SELFPAY ==
[2025-07-08 13:35] VITALS: BP 138/81; PULSE 75; O2SAT 96; BMI 32.5
--- NOTE | 2025-07-08 13:35 | MHC.OFFVIS ---
Vital Signs 07/08/25 13:35 Height 5 ft 2.2 in Weight 179 lb 0.246 oz BMI 32.5 BP 138/81 Blood Pressure Location Lt brachial Position Sitting Pulse 75 Pulse Source Pulse Oximeter Pulse Oximetry (%) 96 Oxygen Delivery Method Room Air Intake Visit Reasons: osteoporosis Intake Note: Patient presents for osteoporosis follow up. She was last seen in the office by Dr. Hickman on 05/22/24. 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 She has been a patient at this practice following Dr. Shar verma. For her osteoporosis, she has been on alendronate 70 mg once a week with vitamin-D supplementation. She gets adequate calcium from the diet. She started alendronate on April 2023, she has been doing very well on it. Her last DEXA scan was in March 2025 which showed a significant improvement in her bone density with an improvement of 14.8% bone mineral density in her left femoral neck. On labs, her kidney function, LFTs are within normal limits, her vitamin-D and calcium were also within normal limits. Today, she reports there is some joint pain in her hands, there is Heberden nodes present however no active synovitis was noted on her hand examination today. ROS: She denies weight loss, fever, bloody diarrhea, bloody urine, skin rashes, sores in her mouth PHYSICAL EXAM General: Comfortable CVS: RRR Respiratory: clear to auscultation bilaterally. Good respiratory effort Skin: No lesions seen MSK: Patient is able to make a fist bilaterally. She has enlarged Heberden's nodes in her DIPs of her fingers. No active synovitis noted in any of her joints. Nontender MCPs PIPs. Patient has full range of motion in her shoulders. Strength 5 /5 in her upper extremities. Patient has good range of motion in the hips. Patient is able to flex and extend her knees, no tenderness noted. [facility] Medical History (Updated 06/07/25 @ 22:17 by Yvette Shaffer MD) Pruritic intertrigo Hearing deficit Dense breast tissue on mammogram Irritable bowel syndrome with constipation Depression Dyslipidemia Osteopenia of left femoral neck Acquired hypothyroidism Primary osteoarthritis Surgical History (Updated 07/03/25 @ 11:10 by Yvette Shaffer MD) H/O knee surgery H/O colonoscopy History of arthrodesis History of cataract surgery History of tubal ligation History of appendectomy Family History Father Dysrhythmia CVD (cardiovascular disease) Mother HTN (hypertension) Breast cancer Bladder cancer Mental health disorder Maternal Grandfather Stroke Maternal Grandmother Stroke Paternal Grandfather No problems noted. Paternal Grandmother Liver cancer Social History Housing: House Are you a primary resident care spec to a significant other at home: No Do you presently have visiting nurse or other home services: No Alcohol intake: current Alcohol intake frequency: holidays/special occasions only Patient Tobacco Use Status: Former Tobacco user Years Smoked: 1 yr e-Cigarette/Vaping Use: Never Used Second Hand Smoke Exposure: No Advance Directives Date on File: 11/15/23 service: No Current occupational status: retired Cognitive needs: No Hearing needs: No Vision needs: Yes Physical Exam Vital Signs: BMI result Body Mass Index 32.5 Assessment & Plan Assessment & Plan (1) Primary osteoarthritis: Code(s): M19.91 - Primary osteoarthritis, unspecified site Category: Medical (2) Osteoporosis: Comment: Was on Evista for more than 10 years DEXA 03/2023 Showed worsening T-score at left femoral neck from -2.3 in 2019 to -2.7 L-spine T-score -1.6, unchanged from 2020 Alendronate started 04/2023 well-tolerated Code(s): M81.0 - Age-related osteoporosis without current pathological fracture Category: Medical Qualifiers: Osteoporosis type: age-related Presence of current pathological fracture: without current pathological fracture Qualified Code(s): M81.0 - Age-related osteoporosis without current pathological fracture Plan 80-year-old female is here as a new patient to monitor her antiresorptive therapy for osteoporosis. She is currently on alendronate 70 mg weekly. Blood work including kidney function, liver function look stable. Her bone mineral density scan shows a significant improvement in her bone mineral density. Patient is to continue alendronate 70 mg weekly which was started on04/2023 Repeat DEXA scan to be done in March 2027 Patient takes adequate calcium through the diet, she is to continue vitamin-D supplementation. Follow up in 1 year Long-term Use of Bisphosphonates Risks and benefits of bisphosphonates in the management of osteoporosis Benefits include improved bone density, decreased fracture risk Risks include atypical femoral fractures, GI upset, esophageal strictures Contraindicated in patients with a creatinine clearance < 30 to 35 ml/min Keep vitamin-D at least 35 ng/mL Coding Level of Care Code New Pt Level 3 (61677) Diagnoses Primary osteoarthritis M19.91 Age-related osteoporosis without current pathological fracture M81.0 Osteoporosis type: age-related Presence of current pathological fracture: without current pathological fracture
--- OUTSIDE RECORDS SUMMARY | 2025-07-08 20:58 | XMS_ITS | Clinical Summary ---
Author Organization [facility] Address [address] [place] [phone] Phone Care Team Providers Care Business Strategy Manager Name Role Phone Yvette Shaffer MD Primary [...] problems may need to consider evaluation at [facility] on [facility] On SSRI therapy 05/07/2020 Assessment & [...] wanted my opinion about Arthritis Advisor from [facility] and [facility] from [facility]. I [...] wanted my opinion about Arthritis Advisor from [facility]. I [...] wanted my opinion about Arthritis Advisor from [facility] and [facility]. I [...] wanted my opinion about Arthritis Advisor from [facility] and [facility]. I [...] wanted my opinion about Arthritis Advisor from [facility] and [facility]. I [...] REPLACEMENT [employer] PPO MEDICARE REPLACEMENT Care Teams Business Strategy Manager Relationship Specialty Start Date End Date Yvette Shaffer MD [address] [place] [address] PCP - General Internal Medicine 12/30/21 Additional Source Comments The information contained in this document represents components of the legal health record. It is not the complete legal health record.[facility]
== END 2025-07-08 14:09 | disposition home or self-care (01) ==
LOC: HO.RHES 13:34
PROVIDERS: PCP Internal Medicine; Visit Provider Student in an Organized Health Care Education/Training Program
DX: M19.91 Primary osteoarthritis, unspecified site (principal); M81.0 Age-related osteoporosis without current pathological fracture
CPT/HCPCS: 99213

== ENCOUNTER → 2025-07-08 13:33 | Outpatient (BNVA) | payer MEDICARE, SELFPAY | PROVIDERS: PCP Internal Medicine; Visit Provider Student in an Organized Health Care Education/Training Program | DX: M81.0 Age-related osteoporosis without current pathological fracture (principal); M19.91 Primary osteoarthritis, unspecified site | CPT/HCPCS: 99212 ==